=== PATIENT | female | born 1935 | race Caucasian/White ===

== ENCOUNTER 2016-09-14 17:53 | Emergency (ER) | payer MEDICARE, OTHER ==
[2016-09-14] MEDS ORDERED: PROTONIX 40 MG IV IV ONE ×2 (18:34→18:44)
[2016-09-14] MEDS ORDERED: Zofran 4 MG/2 ML VIAL IV ONE (18:34)
[2016-09-14] MEDS ORDERED: MORPHINE SULFATE 4 MG INJ IV ONE (18:34)
--- NOTE | 2016-09-14 18:37 | ERPHSYRPT ---
- History of Present Illness Historian: patient Exam Limitations: clinical condition Patient Subjective Stated Complaint: vomiting and generalized abd pain started this am. states has vomited approx 20 times. denies diarrhea Triage Nursing Assessment: ambulated to room per self holding abd. skin w/d, color pale. resp nonlabored. abd soft, tender. normal bowel sounds. Timing/Duration: today Activities at Onset: none Quality: cramping Abdominal Pain Onset Location: generalized abdomen Pain Radiation: no radiation Severity of Pain-Max: moderate Severity of Pain-Current: moderate Associated Symptoms: nausea, vomiting Previous symptoms: no prior history Hx Tetanus, Diphtheria Vaccination/Date Given: No Hx Influenza Vaccination/Date Given: Yes Hx Pneumococcal Vaccination/Date Given: Yes <HAILEE TERRAZAS - Last Filed: 09/14/16 19:39> <RUBINA CANELA - Last Filed: 09/14/16 21:39> - History of Present Illness Time Seen by Provider: 09/14/16 18:20 Physician History: PATIENT COMPLAINS OF ACUTE ONSET OF FREQUENT EMESIS X 20 EPISODES SINCE 8AM TODAY ASSOCIATED GENERALIZED ABDOMINAL PAIN. DENIES FEVER, CHILLS OR URINARY SYMPTOMS. HAS TRANSIET EPISODE OF CHEST PAIN THIS AM. DENIES DIAPHORESIS, DYSPNEA OR PALPITATIONS (HAILEE TERRAZAS) Allergies/Adverse Reactions: penicillin G Allergy (Verified 09/14/16 18:12) acetaminophen [From [place]] Adverse Reaction (Verified 09/14/16 18:12) hydrocodone bitartrate [From [place]] Adverse Reaction (Verified 09/14/16 18:12) lisinopril Adverse Reaction (Verified 09/14/16 18:12) procainamide HCl [From [place]] Adverse Reaction (Verified 09/14/16 18:12) PRESANTINE Allergy (Uncoded 09/14/16 18:12) Home Medications: Aspirin 325 mg PO DAILY 04/04/13 [History] Fenofibrate Nanocrystallized [Tricor] 160 mg PO DAILY 04/04/13 [History] Glipizide 2.5 mg [Glucotrol Xl 2.5 MG] 2.5 mg PO DAILY 04/04/13 [History] Isosorbide Mononitrate 30 mg [Imdur 30 MG] 60 mg PO DAILY 04/04/13 [History ] Levothyroxine Sodium 112 Mcg [Synthroid 112 Mcg] 112 mg PO DAILY 04/04/13 [ History] Losartan Potassium 50 mg [Cozaar 50 MG] 100 mg PO DAILY 04/04/13 [History] Metformin HCl 1000 mg [Glucophage 1000 MG] 1,000 mg PO DAILY 04/04/13 [History] Metoprolol Tartrate 100 mg PO BID 04/04/13 [History] Omeprazole 20 MG [Prilosec 20 mg] 20 mg PO DAILY 04/04/13 [History] Vit D3/Folic Acid/B2/B6/B12 [Folgard Tablet] 1 each PO DAILY 04/04/13 [History] Amino Acids/Mv,Fe,Other Min [Ocuvite Extra Tablet] 1 each PO DAILY 09/14/16 [ History] Amlodipine Besylate [Norvasc] 2.5 mg PO DAILY 09/14/16 [History] - Review of Systems Constitutional: No Fever, No Chills Eyes: No Symptoms Ears, Nose, & Throat: No Symptoms Respiratory: No Cough, No Dyspnea Cardiac: Chest Pain, No Edema, No Syncope Abdominal/Gastrointestinal: Abdominal Pain, Nausea, Vomiting, No Diarrhea Genitourinary Symptoms: No Symptoms, No Dysuria Musculoskeletal: No Symptoms, No Back Pain, No Neck Pain Skin: No Symptoms, No Rash Neurological: No Dizziness, No Focal Weakness, No Sensory Changes Psychological: No Symptoms Endocrine: No Symptoms All Other Systems: Reviewed and Negative <HAILEE TERRAZAS - Last Filed: 09/14/16 19:39> - Past Medical History Pertinent Past Medical History: Yes Neurological History: TIA ENT History: No Pertinent History Cardiac History: Arrhythmia, Hypertension Respiratory History: No Pertinent History Endocrine Medical History: Diabetes Type II, Hypothyroidism Musculoskeletal History: Fractures GI Medical History: GERD Other Medical History: PT. HAD CAROTID ENDARTECTOMY, BILATERAL TKA, BREAST BIOPSIES W/ NO CA - Past Surgical History Past Surgical History: Yes Neuro Surgical History: No Pertinent History Cardiac: No Pertinent History Respiratory: No Pertinent History Gastrointestinal: No Pertinent History Genitourinary: No Pertinent History Musculoskeletal: Joint Replacement Female Surgical History: Other Other Surgical History: bilat knee replacement. 3x D&C. 3x breast biopsies - Social History Smoking Status: Never smoker Exposure to second hand smoke: No Drug Use: none Patient Lives Alone: No - Female History Hx Now: No <HAILEE TERRAZAS - Last Filed: 09/14/16 19:39> - Physical Exam General Appearance: no apparent distress, alert Eye Exam: PERRL/EOMI, eyes nml inspection Ears, Nose, Throat Exam: normal ENT inspection, pharynx normal, moist mucous membranes Neck Exam: normal inspection, non-tender, supple, full range of motion Respiratory Exam: normal breath sounds, lungs clear, No respiratory distress Cardiovascular Exam: regular rate/rhythm, normal heart sounds Gastrointestinal/Abdomen Exam: soft, normal bowel sounds, tenderness ( PERIUMBILICAL AND RLQ, LLQ TENDERNESS, NO GUARDING OR REBOUNS TENDERNESS), No mass Back Exam: normal inspection, normal range of motion, No CVA tenderness, No vertebral tenderness Extremity Exam: normal inspection, normal range of motion, pelvis stable Neurologic Exam: alert, oriented x 3, cooperative, normal mood/affect, nml cerebellar function, sensation nml, No motor deficits Skin Exam: normal color, warm, dry SpO2 Interpretation: normal SpO2: 97 Oxygen Delivery: Room Air <MKHAILEE - Last Filed: 09/14/16 19:39> - Course EKG Interpreted by Me: RATE, Sinus Rhythm, NORMAL AXIS <MKHAILEE Last Filed: 09/14/16 19:39> <HAILEE TERRAZAS Filed: 09/14/16 19:39> - Progress Discussed with : Other (SPOKE WITH DR PALENCIA(ADVERTISING WRITER) AND MIGUEL ESTRADA NPatricia.(FOR DR SANTACRUZ)([id number]) WHO ACCEPTED PT FOR TRANSFER TO [facility] A DIRECT ADMISSION.) <RUBINA CANELA - Last Filed: 09/14/16 21:39> - Progress Progress Note: 09/14/16 19:42 PATIENT GIVEN NORMAL SALINE IV FLUIDS AT 200MG/HR, ZOFRAN 4MG, PROTONIX 40MG. MORPHINE 4MG IV PATIENT CARE ENDORSED TO DR CANELA AT 1940 (HAILEE TERRAZAS) 09/14/16 21:[address] CANELA AT ~ 2100: PERRL; PHARYNX PINK, LUNGS CLEAR, NO CARDIAC RUB, ABDOMINAL B.S. MILDLY HYPERACTIVE, MILD DIFFUSE ABDOMINAL TENDERNESS, NO TREMORS. (RUBINA CANELA) <HAILEE TERRAZAS - Last Filed: 09/14/16 19:39> - Departure Time of Disposition: 21:39 Departure Disposition: Transfer ([facility]) Critical Care Time: No <RUBINA CANELA - Last Filed: 09/14/16 21:39> - Departure Clinical Impression: ACUTE PANCREATITIS, HTN, DM, HYPOTHYROIDISM, GERD Condition: Stable Referrals: GAYLA GRAHAM [Primary Care Provider] -
[2016-09-14 18:42] LABS: BASOPHIL % 0.1 % (0.0-0.4); Eosinophil % 0.1 % (0.00-5.0); Granulocytes % 82.2 % (36.0-66.0); Lymphocytes % 12.7 % (24.0-44.0); Mean Cell Volume 96.6 fl (78-100); Monocytes % 4.9 % (0.0-12.0); Platelet Count 323 K/mm3 (150-450); Red Blood Count 4.07 M/mm3 (4.1-5.4); Red Cell Distribution Width 14.4 % (11.5-14.0); White Blood Count 13.4 K/mm3 (4.0-10.5)
[2016-09-14] MEDS ORDERED: Zofran 4 MG/2 ML VIAL ONE (18:44)
[2016-09-14] MEDS ORDERED: MORPHINE SULFATE 4 MG INJ ONE (18:45)
[2016-09-14] MEDS ORDERED: Sodium Chloride 0.9% 1000 ML 1,000 ML ONE (18:45)
[2016-09-14] MEDS ORDERED: Sodium Chloride 0.9% 1000 ML 1,000 ML IV SCH (18:45)
[2016-09-14 18:47] LABS: Mean Corpuscular Hemoglobin 32.1 pg (26-32)
[2016-09-14 18:59] LABS: ALBUMIN 3.4 g/dL (3.4-5.0); ALKALINE PHOSPHATASE 72 U/L (46-116); ANION GAP 13.9 MEQ/L (5-15); BLOOD UREA NITROGEN 24 mg/dL (9-20); CHLORIDE 105 mEq/L (98-107); Carbon Dioxide 26.8 mEq/L (21-32); Glucose 220 MG/DL (70-110); SGOT/AST 174 U/L (15-37); SGPT/ALT 79 U/L (12-78); SODIUM 142 mEq/L (136-145); Total Protein 7.1 gm/dL (6.4-8.2)
[2016-09-14 19:18] LABS: TROPONIN < 0.017 ng/ml (0.000-0.056)
[2016-09-14 20:08] LABS: LIPASE 33046 U/L (73-393)
[2016-09-14 20:10] LABS: Collection Type CLEAN CATCH
[2016-09-14 20:11] LABS: ADD URINE CULTURE? NO (NO); Bilirubin MODERATE (NEGATIVE); Blood NEGATIVE Ery/ul (0-5); COMPLETE URINE MICROSCOPIC? YES; Epithelial Cells FEW /HPF (FEW); Glucose NEGATIVE (NEGATIVE); Leukocyte Esterase NEGATIVE (NEGATIVE); Mucus SLIGHT /HPF (NEGATIVE)
[2016-09-14] MEDS ORDERED: Hydromorphone 1 mg/ml Ampule IV ONE (21:42)
[2016-09-14] MEDS ORDERED: Phenergan 25 MG INJ IV ONE (21:42)
[2016-09-14] MEDS ORDERED: Hydromorphone 1 mg/ml Ampule ONE (21:51)
[2016-09-14] MEDS ORDERED: Phenergan 25 MG INJ ONE (21:51)
[2016-09-14 22:04] VITALS: BP 120/64; PULSE 87; O2SAT 94
--- NOTE | 2016-09-15 09:07 | XRAY ---
Indication: Mid abdominal pain, constipation, and emesis. Multiple contiguous axial images obtained through the abdomen and pelvis without contrast as ordered. Comparison: None Lung bases demonstrates mild bibasilar dependent atelectasis and inferior lingular fibrosis/scarring. Heart is not enlarged. Small hiatal hernia. Noncontrasted stomach and bowel loops appear nonobstructed. There is mild diffuse scattered colonic fecal debris throughout. Normal appendix. Head of the pancreas appears prominent with peripancreatic stranding concerning for pancreatitis. Adjacent descending duodenum mildly fluid distended with stranding possibly reactive/duodenitis. Tiny free fluid adjacently and lateral to the inferior liver. No walled off fluid collection or free air. Common bile duct is prominent up to 10 mm without choledochal calculus. Nonobstructing bilateral renal calculus, largest in the right lower calyx measuring 8 mm. A few calcified uterine fibroids. Remaining liver, gallbladder, spleen, adrenal glands, kidneys, ureters, and bladder appear unremarkable for noncontrast exam. Moderate aortoiliac calcifications without AAA. Osseous structures intact with moderate degenerative changes throughout the spine including 4-5 mm anterolisthesis of L4 on L5 on S1. Impression: 1. CT features favoring pancreatitis. Tiny free fluid but no walled off fluid collection. Adjacent descending duodenal stranding possibly reactive/duodenitis. 2. Common bile duct prominence without choledochal calculus. 3. Incidental small hiatal hernia, fecal stasis without obstruction, nonobstructing bilateral renal calculi, and calcified uterine fibroids. 4. Multilevel spinal degenerative spondylosis including grade 1 L4-L5-S1 spondylolisthesis. Comment: Preliminary interpretation was made by [facility]. No critical discrepancy. CT DI 22.67
== END 2016-09-14 22:32 | disposition short-term general hospital (02) ==
LOC: ED 17:53
DX: K85.90 Acute pancreatitis without necrosis or infection, unspecified (principal); I10 Essential (primary) hypertension; E11.9 Type 2 diabetes mellitus without complications; E03.9 Hypothyroidism, unspecified; K21.9 Gastro-esophageal reflux disease without esophagitis; R10.84 Generalized abdominal pain; R11.2 Nausea with vomiting, unspecified; Z79.899 Other long term (current) drug therapy; Z79.84 Long term (current) use of oral hypoglycemic drugs
CPT/HCPCS: 36000; 36415; 74176; 80053; 81000; 82150; 83690; 84484; 85025; 87040; 93005; 96360; 96361; 96374; 96375; 99285; J1170; J2270; J2405; J2550

== ENCOUNTER 2019-01-30 07:39 | Day surgery (SDC) | payer MEDICARE, OTHER ==
[2019-01-30] MEDS ORDERED: Xylocaine-Mpf 2% 5 Ml Vial IJ ONE (07:40)
[2019-01-30] MEDS ORDERED: Depo-Medrol 40 MG/ML IM ONE (07:40)
[2019-01-30] MEDS ORDERED: DIPRIVAN 200 MG/20 ML IV ONE (09:32)
[2019-01-30] MEDS ORDERED: Ketamine HCl 50 MG/ML ONE (09:32)
--- NOTE | 2019-01-30 12:43 | XRAY ---
Indication: Bilateral L3-S1 MBB. Intraoperative fluoroscopy was provided for 9 seconds. Single digital spot image submitted for interpretation demonstrates posterior needle tips projecting over the expected course of the left and right L3-S1 nerve roots. Correlate with intraoperative findings/report.
--- NOTE | 2019-01-30 12:51 | XRAY ---
9 seconds fluoroscopy time in surgery for bilateral L3-S1 MBB.
[2019-01-30] MEDS ORDERED: Lactated Ringers 1,000 ML IV ONE (18:20)
== END 2019-01-30 10:11 | disposition home or self-care (01) ==
LOC: SDC-PAIN 07:39
PROVIDERS: ATTEND Psychiatry & Neurology Pain Medicine
DX: M47.816 Spondylosis without myelopathy or radiculopathy, lumbar region (principal); E11.9 Type 2 diabetes mellitus without complications; I10 Essential (primary) hypertension; E78.5 Hyperlipidemia, unspecified; K21.9 Gastro-esophageal reflux disease without esophagitis; E03.9 Hypothyroidism, unspecified; Z79.899 Other long term (current) drug therapy
CPT/HCPCS: 64493; 64494; 64495; 72020; 77002; 82962; J1030; J2704

== ENCOUNTER 2019-03-06 07:58 | Day surgery (SDC) | payer MEDICARE, OTHER ==
[2019-03-06] MEDS ORDERED: Marcaine 0.5% SDV 10 ML IJ ONE (07:59)
[2019-03-06] MEDS ORDERED: Depo-Medrol 40 MG/ML IM ONE (07:59)
[2019-03-06] MEDS ORDERED: DIPRIVAN 200 MG/20 ML IV ONE (09:30)
[2019-03-06] MEDS ORDERED: Ketamine HCl 50 MG/ML ONE (09:30)
--- NOTE | 2019-03-06 11:04 | XRAY ---
Indication: Bilateral L3-S1 MBB. Intraoperative fluoroscopy was provided for 10 seconds. Single digital spot image submitted for interpretation demonstrates posterior needle tips projecting over the expected course of the left and right L3-S1 nerve roots. Correlate with intraoperative findings/report.
--- NOTE | 2019-03-06 11:16 | XRAY ---
10 seconds fluoroscopy time in surgery for bilateral L3-S1 MBB.
[2019-03-06] MEDS ORDERED: Lactated Ringers 1,000 ML IV ONE (16:00)
== END 2019-03-06 09:50 | disposition home or self-care (01) ==
LOC: SDC-PAIN 07:58
PROVIDERS: ATTEND Psychiatry & Neurology Pain Medicine
DX: M47.816 Spondylosis without myelopathy or radiculopathy, lumbar region (principal); E11.9 Type 2 diabetes mellitus without complications; I10 Essential (primary) hypertension; E78.5 Hyperlipidemia, unspecified; E03.9 Hypothyroidism, unspecified; K21.9 Gastro-esophageal reflux disease without esophagitis; Z79.899 Other long term (current) drug therapy
CPT/HCPCS: 64493; 64494; 64495; 72020; 77002; 82962; J1030; J2704

== ENCOUNTER 2020-07-26 15:14 | Observation (INO) | payer MEDICARE, OTHER ==
[2020-07-26] MEDS ORDERED: Sodium Chloride 0.9% 1000 ML 1,000 ML ONE (15:43)
[2020-07-26] MEDS ORDERED: Sodium Chloride 0.9% 1000 ML 1,000 ML IV SCH (15:45)
--- NOTE | 2020-07-26 15:47 | ERPHSYRPT ---
- History of Present Illness Time Seen by Provider: 07/26/20 15:39 Source: patient, family Exam Limitations: no limitations Patient Subjective Stated Complaint: Syncope Triage Nursing Assessment: Patient brought back to ED via w/c and transferred to bed with assist of 1. Patient A+O x3. Patient's skin pink, warm and dry. Patient complains of a syncopal episode around 1400 after eating a doughnut she felt like she was choking then came to on the floor where there were chairs on the floor she had knocked over. Patient has small hematoma to right back side of head. Patient denies pain or discomfort. Patient states she was nauseated and dizzy after episode. Physician History: 84 years old female with history of PE on Eliquis, hypertension, hyperlipidemia, diabetes mellitus presented in the ER with chief complaint of syncopal episode around 2 PM today. Patient reports she had a piece of donut with choking feeli ng in her throat and next thing she knows she woke up on the floor. She did hit her head on the way down and was on the right side hip. Unknown length of loss of consciousness. She was not confused or altered at all on waking up and called her daughter and patient is brought in here. She denies any numbness tingling or focal weakness. No hip pain. No chest pain palpitations or shortness of breath before or after the fall. Denies any blurry vision, difficulty speech. She does have a hematoma on the occipitoparietal area on the right with some discomfort. Denies any neck pain.. No ENT bleed reported. Timing/Duration: hour(s) (2), sudden, improved Severity: moderate Deficits: no difficulties Baseline/Normal Cognition: alert oriented x 3 Current Cognition: alert oriented x 3 Baseline Gait: walks w/o assistance Associated Symptoms: denies symptoms Allergies/Adverse Reactions: penicillin G Allergy (Verified 07/26/20 15:24) acetaminophen [From [place]] Adverse Reaction (Verified 07/26/20 15:24) hydrocodone bitartrate [From [place]] Adverse Reaction (Verified 07/26/20 15:24) lisinopril Adverse Reaction (Verified 07/26/20 15:24) procainamide HCl [From Pronestyl] Adverse Reaction (Verified 07/26/20 15:24) PRESANTINE Allergy (Uncoded 07/26/20 15:24) Home Medications: Aspirin 81 mg PO DAILY 04/04/13 [History] Fenofibrate Nanocrystallized [Tricor] 160 mg PO DAILY 04/04/13 [History] Glipizide 2.5 mg [Glucotrol Xl 2.5 MG] 2.5 mg PO DAILY 04/04/13 [History] Isosorbide Mononitrate 30 mg [Imdur 30 MG] 60 mg PO DAILY 04/04/13 [Histo ry] Levothyroxine Sodium 112 Mcg [Synthroid 112 Mcg] 88 mg PO DAILY 04/04/13 [History] Metoprolol Tartrate 25 mg PO BID 04/04/13 [History] Omeprazole 20 MG [Prilosec 20 mg] 20 mg PO DAILY 04/04/13 [History] Amino Acids/Mv,Fe,Other Min [Ocuvite Extra Tablet] 1 each PO DAILY 09/14/16 [History] Apixaban [Eliquis] 1 tab PO BID 07/26/20 [History] Atorvastatin Calcium [Lipitor 40Mg] 1 tab PO HS 07/26/20 [History] Olmesartan Medoxomil [Benicar] 1 tab PO DAILY 07/26/20 [History] PARoxetine HCl [Paxil] 1 tab PO DAILY 07/26/20 [History] Hx Tetanus, Diphtheria Vaccination/Date Given: No Hx Influenza Vaccination/Date Given: Yes Hx Pneumococcal Vaccination/Date Given: Yes Immunizations Up to Date: Yes Travel Risk - International Travel Have you traveled outside of the country in past 3 weeks: No - Coronavirus Screening Are you exhibiting any of the following symptoms?: No Close contact with a COVID-19 positive Pt in past 14-21 Days: No - Vaccine Status Have you recieved a Covid-19 vaccination: Yes 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 - Vaccination Dates Date of 2cond Vaccination (if applicable): 05/30/2020 - Review of Systems Constitutional: No Symptoms Eyes: No Symptoms Ears, Nose, & Throat: No Symptoms Respiratory: No Symptoms Cardiac: No Symptoms Abdominal/Gastrointestinal: No Symptoms Genitourinary Symptoms: No Symptoms Musculoskeletal: No Symptoms Neurological: Headache Psychological: No Symptoms Endocrine: No Symptoms Hematologic/Lymphatic: No Symptoms Immunological/Allergic: No Symptoms - Past Medical History Pertinent Past Medical History: Yes Neurological History: TIA ENT History: No Pertinent History Cardiac History: High Cholesterol, Hypertension Respiratory History: No Pertinent History Endocrine Medical History: Diabetes Type II, Hypothyroidism Musculoskeletal History: Osteoarthritis GI Medical History: GERD Other Medical History: B TKA, L ankle fracture with hardware. 2-3 fainting spells, the last was 3 years ago. Nausea, SOB - Past Surgical History Past Surgical History: Yes Neuro Surgical History: No Pertinent History Cardiac: No Pertinent History Respiratory: No Pertinent History Gastrointestinal: No Pertinent History Genitourinary: No Pertinent History Musculoskeletal: Joint Replacement Female Surgical History: Other Other Surgical History: bilat knee replacement. 3x D&C. 3x breast biopsies - Social History Smoking Status: Never smoker Exposure to second hand smoke: No Drug Use: none Patient Lives Alone: Yes - Female History Hx Now: No - Nursing Vital Signs Nursing Vital Signs: Initial Vital Signs Temperature 98.1 F 07/26/20 15:24 Pulse Rate 82 07/26/20 15:24 Respiratory Rate 18 07/26/20 15:24 Blood Pressure 168/86 07/26/20 15:24 O2 Sat by Pulse Oximetry 95 07/26/20 15:24 Pain Scale Pain Intensity 0 - [place] Coma Scale Best Eye Response (Dax): (4) open spontaneously Best Verbal Response (Dax): (5) oriented Best Motor Response (Dax): (6) obeys commands Dax Total: 15 - Physical Exam General Appearance: no apparent distress, alert, anxiety Eye Exam: bilateral eye: normal inspection, PERRL, EOMI Ears, Nose, Throat Exam: normal ENT inspection, TMs normal, pharynx normal, other (5.5 cm hematoma right occipitoparietal area. No step in deformity. No tenderness in the midline neck. 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 Exam: normal hearing, normal speech, PERRL Coordination/Gait: normal finger to nose, normal cerebellar function, negative Romberg's sign Motor/Sensory: no motor deficit, no sensory deficit, no pronator drift, negative Babinski's sign DTR: bicep (R): 2+, bicep (L): 2+, knee (R): 2+, knee (L): 2+ Skin Exam: normal color SpO2 Interpretation: normal SpO2: 95 O2 Delivery: Room Air - Course EKG Interpreted by Me: RATE (79), Sinus Rhythm, NORMAL AXIS, NORMAL INTERVALS, NORMAL QRS Ordered Tests: Active Orders 24 hr Category Date Time Status Diesel Engine Mechanic STAT Care 07/26/20 15:40 Active EKG-ER Only STAT Care 07/26/20 15:39 Active IV Insertion STAT Care 07/26/20 15:39 Active Orthostatic Vital Signs STAT Care 07/26/20 15:39 Active POCT Glucose Check STAT Care 07/26/20 15:39 Active CERVICAL SPINE WO CONTRAST [CT] Stat Exams 07/26/20 15:40 Taken CHEST 1 VIEW (PORTABLE) Stat Exams 07/26/20 15:40 Taken HEAD WITHOUT CONTRAST [CT] Stat Exams 07/26/20 15:40 Taken CBC W DIFF Stat Lab 07/26/20 15:35 Completed CK-Creatinine Phosphokinase Stat Lab 07/26/20 15:35 Completed CMP Routine Lab 07/26/20 15:35 Completed CULTURE,URINE Stat Lab 07/26/20 15:43 Received POCT GLUCOSE Stat Lab 07/26/20 15:40 Completed POCT GLUCOSE Stat Lab 07/26/20 15:40 Received TROPONIN Q3H Lab 07/26/20 15:35 Completed TROPONIN Q3H Lab 07/26/20 18:45 Ordered TROPONIN Q3H Lab 07/26/20 21:45 Ordered TROPONIN Q3H Lab 07/27/20 00:45 Ordered TROPONIN Q3H Lab 07/27/20 03:45 Ordered UA W/RFX UR CULTURE Stat Lab 07/26/20 15:43 Completed Medication Summary Generic Name Dose Route Start Last Admin Trade Name Freq PRN Reason Stop Dose Admin Sodium Chloride 1,000 mls @ 100 mls/hr 07/26/20 15:45 07/26/20 15:44 Sodium Chloride 0.9% 1000 Ml IV 08/25/20 15:44 100 mls/hr .Q10H DORY Administration Levofloxacin/Dextrose 500 mg in 100 mls @ 100 mls/hr 07/26/20 17:20 Levofloxacin 500mg/100ml D5w IV 07/26/20 18:19 STAT STA Lab/Rad Data: Laboratory Result Diagrams 07/26/20 15:35 07/26/20 15:35 Laboratory Results 07/26/20 07/26/20 07/26/20 Range/Units 15:43 15:40 15:35 WBC (4.0-10.5) K/mm3 RBC (4.1-5.4) M/mm3 Hgb (12.0-16.0) gm/dl Hct (35-47) % MCV (78-100) fl MCH (26-32) pg MCHC (32-36) g/dl RDW (11.5-14.0) % Plt Count (150-450) K/mm3 MPV (7.5-11.0) fl Gran % (36.0-66.0) % Eos # (Auto) (0-0.5) Absolute Lymphs (auto) (1.0-4.6) Absolute Monos (auto) (0.0-1.3) Lymphocytes % (24.0-44.0) % Monocytes % (0.0-12.0) % Eosinophils % (0.00-5.0) % Basophils % (0.0-0.4) % Absolute Granulocytes (1.4-6.9) Basophils # (0-0.4) Sodium 138 (137-145) mmol/L Potassium 4.2 (3.5-5.1) mmol/L Chloride 103 (98-107) mmol/L Carbon Dioxide 26 (22-30) mmol/L Anion Gap 13.4 (5-15) MEQ/L BUN 24 H (7-17) mg/dL Creatinine 0.98 (0.52-1.04) mg/dL Estimated GFR 57.7 ML/MIN Glucose 164 H (74-106) mg/dL POC Glucometer 159 H (74 to 106) mg/dL Calcium 9.9 (8.4-10.2) mg/dL Total Bilirubin 0.60 (0.2-1.3) mg/dL AST 38 H (14-36) U/L ALT 17 (0-35) U/L Alkaline Phosphatase 96 (38-126) U/L Creatine Kinase (30-135) U/L Troponin I < 0.012 (0.000-0.034) ng/mL Serum Total Protein 5.9 L (6.3-8.2) g/dL Albumin 3.2 L (3.5-5.0) g/dL Urine Color TWYLA (YELLOW) Urine Appearance SLIGHTLY CLOUDY (CLEAR) Urine pH 5.0 (5-6) Ur Specific [place] 1.025 (1.005-1.025) Urine Protein 30 (Negative) Urine Ketones NEGATIVE (NEGATIVE) Urine Blood SMALL (0-5) Huan/ul Urine Nitrite NEGATIVE (NEGATIVE) Urine Bilirubin NEGATIVE (NEGATIVE) Urine Urobilinogen 4 (0-1) mg/dL Ur Leukocyte Esterase LARGE (NEGATIVE) Urine WBC (Auto) 26-50 (0-5) /HPF Urine RBC (Auto) 51-100 (0-2) /HPF U Hyaline Cast (Auto) 3-5 (0-2) /LPF U Epithel Cells (Auto) RARE (FEW) /HPF Urine Bacteria (Auto) NONE (NEGATIVE) /HPF Urine Mucus (Auto) SLIGHT (NEGATIVE) /HPF Urine Culture Reflexed YES (NO) Urine Glucose NEGATIVE (NEGATIVE) mg/dL 07/26/20 07/26/20 Range/Units 15:35 15:35 WBC 7.8 (4.0-10.5) K/mm3 RBC 3.68 L (4.1-5.4) M/mm3 Hgb 12.2 (12.0-16.0) gm/dl Hct 37.1 (35-47) % MCV 100.8 H (78-100) fl MCH 33.2 H (26-32) pg MCHC 32.9 (32-36) g/dl RDW 16.0 H (11.5-14.0) % Plt Count 321 (150-450) K/mm3 MPV 10.9 (7.5-11.0) fl Gran % 47.2 (36.0-66.0) % Eos # (Auto) 0.46 (0-0.5) Absolute Lymphs (auto) 2.83 (1.0-4.6) Absolute Monos (auto) 0.77 (0.0-1.3) Lymphocytes % 36.4 (24.0-44.0) % Monocytes % 9.9 (0.0-12.0) % Eosinophils % 5.9 H (0.00-5.0) % Basophils % 0.6 (0.0-0.4) % Absolute Granulocytes 3.67 (1.4-6.9) Basophils # 0.05 (0-0.4) Sodium (137-145) mmol/L Potassium (3.5-5.1) mmol/L Chloride (98-107) mmol/L Carbon Dioxide (22-30) mmol/L Anion Gap (5-15) MEQ/L BUN (7-17) mg/dL Creatinine (0.52-1.04) mg/dL Estimated GFR ML/MIN Glucose (74-106) mg/dL POC Glucometer (74 to 106) mg/dL Calcium (8.4-10.2) mg/dL Total Bilirubin (0.2-1.3) mg/dL AST (14-36) U/L ALT (0-35) U/L Alkaline Phosphatase (38-126) U/L Creatine Kinase 35 (30-135) U/L Troponin I (0.000-0.034) ng/mL Serum Total Protein (6.3-8.2) g/dL Albumin (3.5-5.0) g/dL Urine Color (YELLOW) Urine Appearance (CLEAR) Urine pH (5-6) Ur Specific [place] (1.005-1.025) Urine Protein (Negative) Urine Ketones (NEGATIVE) Urine Blood (0-5) Huan/ul Urine Nitrite (NEGATIVE) Urine Bilirubin (NEGATIVE) Urine Urobilinogen (0-1) mg/dL Ur Leukocyte Esterase (NEGATIVE) Urine WBC (Auto) (0-5) /HPF Urine RBC (Auto) (0-2) /HPF U Hyaline Cast (Auto) (0-2) /LPF U Epithel Cells (Auto) (FEW) /HPF Urine Bacteria (Auto) (NEGATIVE) /HPF Urine Mucus (Auto) (NEGATIVE) /HPF Urine Culture Reflexed (NO) Urine Glucose (NEGATIVE) mg/dL - Progress Progress: improved, pain not gone completely, re-examined Progress Note: 07/26/20 17:29 84 years old is evaluated for syncopal episode with scalp hematoma. She has a nonfocal neuro exam throughout stay in the ER. EKG showed normal sinus rhythm with no acute ST elevations. Normal white count, no acutely abnormal chemistries. Negative troponins. Chest x-ray no acute cardiopulmonary fi ndings. She does have UTI and started on Levaquin. CT head negative for skull fracture, intracranial bleed, midline shift or mass-effect. I have obtained CT cervical spine as well which is negative for any acute trauma related findings. Her syncope could be secondary to choking episode but does not have any difficulty breathing or swallowing at of present or it could be due to cardio neuro causes. Needs further work-up. Discussed with Dr. Nava and patient is admitted for observation. Discussed with : Coretta Will see patient in: hospital (observation) Counseled pt/family regarding: lab results, diagnosis, need for follow-up, rad results - Departure Departure Disposition: Observation Clinical Impression: Syncope and collapse, Acute UTI Scalp contusion Qualifiers: Encounter type: initial encounter Qualified Code(s): S00.03XA - Contusion of scalp, initial encounter Condition: Stable Critical Care Time: No Referrals: SIMA REN MD [Primary Care Provider] -
[2020-07-26 15:56] LABS: Absolute Neutrophil Ct (ANC) 3.67 (1.4-6.9); BASOPHIL % 0.6 % (0.0-0.4); Basophil (Absolute #) 0.05 (0-0.4); Eosinophil % 5.9 % (0.00-5.0); Eosinophil (Absolute #) 0.46 (0-0.5); Hematocrit 37.1 % (35-47); Hemoglobin 12.2 gm/dl (12.0-16.0); Lymphocyte (Absolute #) 2.83 (1.0-4.6); Lymphocytes % 36.4 % (24.0-44.0); Mean Cell Volume 100.8 fl (78-100); Mean Corpuscular Hemoglobin 33.2 pg (26-32); Mean Corpuscular Hgb Concent. 32.9 g/dl (32-36); Mean Platelet Volume 10.9 fl (7.5-11.0); Monocyte (Absolute #) 0.77 (0.0-1.3); Monocytes % 9.9 % (0.0-12.0); Neutrophil % 47.2 % (36.0-66.0); Platelet Count 321 K/mm3 (150-450); Red Blood Count 3.68 M/mm3 (4.1-5.4); White Blood Count 7.8 K/mm3 (4.0-10.5)
[2020-07-26 16:04] LABS: Appearance SLIGHTLY CLOUDY (CLEAR); Bilirubin NEGATIVE (NEGATIVE); Blood SMALL Ery/ul (0-5); Epithelial Cells RARE /HPF (FEW); Glucose NEGATIVE (NEGATIVE); Ketones NEGATIVE (NEGATIVE); Leukocyte Esterase LARGE (NEGATIVE); Mucus SLIGHT /HPF (NEGATIVE); Nitrite NEGATIVE (NEGATIVE); Protein,Urine Dip 30 (Negative); RBC 51-100 /HPF (0-2); Specific Gravity 1.025 (1.005-1.025); Urobilinogen 4 mg/dL (0-1); WBC 26-50 /HPF (0-5)
[2020-07-26 16:37] LABS: ALBUMIN 3.2 g/dL (3.5-5.0); ALKALINE PHOSPHATASE 96 U/L (38-126); ANION GAP 13.4 MEQ/L (5-15); BLOOD UREA NITROGEN 24 mg/dL (7-17); CHLORIDE 103 mmol/L (98-107); Calcium 9.9 mg/dL (8.4-10.2); Carbon Dioxide 26 mmol/L (22-30); Creatinine 1 0.98 mg/dL (0.52-1.04); EST GLOMERULAR FILTRATION RATE 57.7 ML/MIN; Glucose 164 mg/dL (74-106); Potassium 4.2 mmol/L (3.5-5.1); SGOT/AST 38 U/L (14-36); SGPT/ALT 17 U/L (0-35); SODIUM 138 mmol/L (137-145); TROPONIN < 0.012 ng/mL (0.000-0.034); Total Protein 5.9 g/dL (6.3-8.2)
[2020-07-26] MEDS ORDERED: Levofloxacin 500MG/100ML D5W 500 MG/100 ML BAG IV STA (17:20)
[2020-07-26] MEDS ORDERED: Levofloxacin 500MG/100ML D5W 500 MG/100 ML BAG IV ONE (17:30)
--- NOTE | 2020-07-26 18:23 | XRAY ---
Indication: Syncope. Status post fall. Posterior right head injury. Blood thinner therapy. Multiple contiguous axial images obtained through the head without contrast. Comparison: None Age-appropriate global atrophy and mild periventricular degenerative micro-ischemia bilaterally. Tiny right basal ganglia remote lacunar infarcts. No acute intracranial hemorrhage, abnormal extra-axial fluid collection, or mass effect. Fourth ventricle is midline without hydrocephalus. Small right posterior parietal scalp hematoma. Bony calvarium intact. Visualized paranasal sinuses and mastoid air cells are clear. Impression: 1. Right parietal scalp hematoma. No underlying fracture or acute intracranial abnormalities. 2. Atrophy and degenerative micro-ischemia within normal limits for patient's age. 3. Tiny right basal ganglia remote lacunar infarcts. Comment: Preliminary interpretation was made by [facility]. No critical discrepancy.
--- NOTE | 2020-07-26 18:24 | XRAY ---
Indication: Syncope. Status post fall. Comparison: April 24, 2020. Portable chest unchanged again demonstrating subtle patchy left base interstitial alveolar opacity and minimal right costophrenic angle fibrosis/scarring. Remaining heart and lungs unremarkable. Bony thorax intact again with osteopenia, degenerative changes, and scoliosis. Comment: Preliminary interpretation was made by [facility]. No critical discrepancy.
--- NOTE | 2020-07-26 18:27 | XRAY ---
Indication: Syncope. Status post fall. Posterior right head injury. Blood thinner therapy. Multiple contiguous axial images obtained through the cervical spine. Sagittal and coronal reformatted images obtained. Comparison: None Age-related osteopenia. Axial images negative for acute fracture, suspicious bone lesions, or spinal canal stenosis. There is mild/moderate C3-C7 degenerative endplate spurring, moderate atlantoaxial degenerative arthropathy, and moderate multilevel bilateral degenerative facet hypertrophy. Sagittal and coronal reformatted images demonstrates lordotic reversal, positional versus paraspinal spasm. 1-2 mm anterolisthesis of C2 on C3, C4 on C5, and C7 on T1. C5-C7 degenerative disc space loss. No acute compression fracture or jumped facet. Normal appearing craniocervical junction. Visualized noncontrasted soft tissues demonstrates moderate scattered vascular calcifications bilaterally. Lung apices are clear. Impression: 1. Cervical lordotic reversal, positional versus paraspinal spasm. 2. Negative acute fracture. 3. Chronic findings including osteopenia, multilevel degenerative spondylosis, and multilevel minimal spondylolisthesis. Comment: Preliminary interpretation was made by [facility]. No critical discrepancy.
[2020-07-26 18:59] LABS: INFLUENZA A NEGATIVE (NEGATIVE); INFLUENZA B NEGATIVE (NEGATIVE); RESPIRATORY SYNCTIAL VIRUS NEGATIVE (Negative)
[2020-07-26] MEDS ORDERED: HUMALOG SQ PRN ×2 (21:19→22:50)
[2020-07-26] MEDS ORDERED: DUONEB 0.5-3 MG/3 ml Neb IH PRN (21:19)
[2020-07-26] MEDS ORDERED: TYLENOL 325 MG PO PRN (21:19)
[2020-07-26] MEDS ORDERED: Zofran 4 MG/2 ML VIAL IV PRN (21:19)
[2020-07-26] MEDS ORDERED: ZOCOR 20MG PO SCH (23:02)
[2020-07-26] MEDS: Lopressor 25MG Tab PO SCH (23:08)
[2020-07-26] MEDS: ELIQUIS 2.5 MG TABLET PO SCH (23:08)
[2020-07-26] MEDS: Pepcid 20 MG VIAL IV SCH (23:09)
[2020-07-27 05:44] LABS: Absolute Neutrophil Ct (ANC) 2.76 (1.4-6.9); BASOPHIL % 0.4 % (0.0-0.4); Basophil (Absolute #) 0.03 (0-0.4); Eosinophil % 8.1 % (0.00-5.0); Eosinophil (Absolute #) 0.57 (0-0.5); Hematocrit 33.9 % (35-47); Hemoglobin 11.1 gm/dl (12.0-16.0); Lymphocytes % 38.6 % (24.0-44.0); Mean Cell Volume 100.3 fl (78-100); Mean Corpuscular Hemoglobin 32.8 pg (26-32); Mean Corpuscular Hgb Concent. 32.7 g/dl (32-36); Mean Platelet Volume 10.8 fl (7.5-11.0); Monocyte (Absolute #) 0.94 (0.0-1.3); Monocytes % 13.4 % (0.0-12.0); Neutrophil % 39.5 % (36.0-66.0); Platelet Count 278 K/mm3 (150-450); Red Blood Count 3.38 M/mm3 (4.1-5.4); Red Cell Distribution Width 15.9 % (11.5-14.0)
[2020-07-27 05:52] LABS: ALBUMIN 2.8 g/dL (3.5-5.0); ALKALINE PHOSPHATASE 81 U/L (38-126); ANION GAP 7.4 MEQ/L (5-15); BLOOD UREA NITROGEN 21 mg/dL (7-17); CHLORIDE 107 mmol/L (98-107); Calcium 8.9 mg/dL (8.4-10.2); Carbon Dioxide 27 mmol/L (22-30); Creatinine 1 0.89 mg/dL (0.52-1.04); EST GLOMERULAR FILTRATION RATE > 60.0 ML/MIN; Glucose 81 mg/dL (74-106); Potassium 3.7 mmol/L (3.5-5.1); SGOT/AST 28 U/L (14-36); SGPT/ALT 13 U/L (0-35); SODIUM 138 mmol/L (137-145); Total Protein 5.4 g/dL (6.3-8.2)
[2020-07-27] MEDS: ELIQUIS 2.5 MG TABLET PO SCH (09:35)
[2020-07-27] MEDS: Lopressor 25MG Tab PO SCH (09:35)
[2020-07-27] MEDS: Pepcid 20 MG VIAL IV SCH (09:36)
[2020-07-27] MEDS ORDERED: NON-FORMULARY ITEM (Omeprazole 20 Mg [Prilosec 20 Mg] 20 MG) PO SCH (10:00)
[2020-07-27] MEDS ORDERED: NON-FORMULARY ITEM (Aspirin [Aspirin] 81 MG) PO SCH (10:00)
[2020-07-27] MEDS ORDERED: Benicar 20 MG PO SCH (10:00)
[2020-07-27] MEDS ORDERED: AMINO ACIDS PO SCH (10:00)
[2020-07-27] MEDS ORDERED: ECOTRIN 81 MG PO SCH (10:00)
[2020-07-27] MEDS ORDERED: Tricor 145 MG PO SCH (10:00)
[2020-07-27] MEDS ORDERED: Protonix 40MG Tablet PO SCH (10:00)
[2020-07-27] MEDS ORDERED: THERAGRAN MULTIVITAMIN PO SCH (10:00)
[2020-07-27] MEDS ORDERED: Glucotrol Xl 2.5 MG PO SCH (10:00)
[2020-07-27] MEDS ORDERED: MV FE OTHER MIN PO SCH (10:00)
[2020-07-27] MEDS ORDERED: OLMESARTAN MEDOXOMIL PO SCH (10:00)
[2020-07-27] MEDS ORDERED: Imdur 30 MG PO SCH (10:00)
[2020-07-27] MEDS ORDERED: FENOFIBRATE NANOCRYSTALLIZED 160 MG PO SCH (10:00)
[2020-07-27 11:28] VITALS: O2SAT 95
[2020-07-27] MEDS ORDERED: Acidophilus TABLET PO SCH (13:00)
[2020-07-27 16:13] VITALS: BP 127/59; PULSE 62
--- NOTE | 2020-07-27 19:50 | PCM.SSS ---
History of Present Illness - Chief Complaint Chief Complaint: Syncope and collapse History of Present Illness: is a 84 year old female. Medications & Allergies Home Medications: Home Medication List Aspirin 81 mg PO DAILY 04/04/13 [History Confirmed 07/26/20] Fenofibrate Nanocrystallized [Tricor] 160 mg PO DAILY 04/04/13 [History Confirmed 07/26/20] Glipizide 2.5 mg [Glucotrol Xl 2.5 MG] 2.5 mg PO DAILY 04/04/13 [History Confirmed 07/26/20] Isosorbide Mononitrate 30 mg [Imdur 30 MG] 60 mg PO DAILY 04/04/13 [History Confirmed 07/26/20] Levothyroxine Sodium 112 Mcg [Synthroid 112 Mcg] 88 mg PO DAILY 04/04/13 [History Confirmed 07/26/20] Metoprolol Tartrate 25 mg PO BID 04/04/13 [History Confirmed 07/26/20] Omeprazole 20 MG [Prilosec 20 mg] 20 mg PO DAILY 04/04/13 [History Confirmed 07/26/20] Amino Acids/Mv,Fe,Other Min [Ocuvite Extra Tablet] 1 each PO DAILY 09/14/16 [History Confirmed 07/26/20] Apixaban [Eliquis] 1 tab PO BID 07/26/20 [History Confirmed 07/26/20] Atorvastatin Calcium [Lipitor 40Mg] 1 tab PO HS 07/26/20 [History Confirmed 07/26/20] Olmesartan Medoxomil [Benicar] 1 tab PO DAILY 07/26/20 [History Confirmed 07/26/20] PARoxetine HCl [Paxil] 1 tab PO DAILY 07/26/20 [History Confirmed 07/26/20] Levofloxacin [Levaquin] 500 mg PO DAILY 3 Days #3 tablet 07/27/20 [Rx] Allergies/Adverse Reactions: Allergies Allergy/AdvReac Type Severity Reaction Status Date / Time penicillin G Allergy Verified 07/26/20 15:24 acetaminophen [From [place]] AdvReac Verified 07/26/20 15:24 hydrocodone bitartrate AdvReac Verified 07/26/20 15:24 [From [place]] lisinopril AdvReac Verified 07/26/20 15:24 procainamide HCl AdvReac Verified 07/26/20 15:24 [From [place]] PRESANTINE Allergy Uncoded 07/26/20 15:24 - Past Medical History Past Medical History: Yes Neurological History: No Pertinent History, TIA ENT History: No Pertinent History, Cataracts Cardiac History: High Cholesterol, Hypertension Respiratory History: No Pertinent History Endocrine Medical History: Diabetes Type II, Hypothyroidism Musculoskelatal History: Osteoarthritis GI Medical History: GERD History: No Pertinent History Pyscho-Social History: No Pertinent History Reproductive Disorders: No Pertinent History Comment: B TKA, L ankle fracture with hardware. 2-3 fainting spells, the last was 3 years ago. Nausea, SOB - Female History Are you now?: No - Past Surgical History Past Surgical History: Yes Neuro Surgical History: No Pertinent History Cardiac History: No Pertinent History Respiratory Surgery: No Pertinent History GI Surgical History: No Pertinent History Genitourinary Surgical Hx: No Pertinent History Musculskeletal Surgical Hx: Joint Replacement Female Surgical History: Other Other Surgical History: bilat knee replacement. 3x D&C. 3x breast biopsies - Social History Smoking Status: Never smoker Exposure to second hand smoke: No Alcohol: None Drug Use: none - Physical Exam Vital Signs: Vital Signs - 24 hr Temp Pulse Resp BP Pulse Ox 07/27/20 16:00 98.1 F 62 16 127/59 95 07/27/20 12:00 16 07/27/20 11:28 96.9 F 69 16 142/61 95 07/27/20 08:00 98.9 F 67 16 162/70 93 L 07/27/20 04:10 98.0 F 60 18 145/64 95 07/27/20 04:00 18 07/27/20 00:00 19 07/26/20 22:14 71 19 93 L 07/26/20 20:47 68 158/71 94 L Results - Labs Lab/Micro Results: Lab Results-Last 24 Hours 07/26/20 07/26/20 07/27/20 Range/Units 22:00 22:10 04:52 WBC 7.0 (4.0-10.5) K/mm3 RBC 3.38 L (4.1-5.4) M/mm3 Hgb 11.1 L (12.0-16.0) gm/dl Hct 33.9 L (35-47) % MCV 100.3 H (78-100) fl MCH 32.8 H (26-32) pg MCHC 32.7 (32-36) g/dl RDW 15.9 H (11.5-14.0) % Plt Count 278 (150-450) K/mm3 MPV 10.8 (7.5-11.0) fl Gran % 39.5 (36.0-66.0) % Eos # (Auto) 0.57 H (0-0.5) Absolute Lymphs (auto) 2.70 (1.0-4.6) Absolute Monos (auto) 0.94 (0.0-1.3) Lymphocytes % 38.6 (24.0-44.0) % Monocytes % 13.4 H (0.0-12.0) % Eosinophils % 8.1 H (0.00-5.0) % Basophils % 0.4 (0.0-0.4) % Absolute Granulocytes 2.76 (1.4-6.9) Basophils # 0.03 (0-0.4) Sodium (137-145) mmol/L Potassium (3.5-5.1) mmol/L Chloride (98-107) mmol/L Carbon Dioxide (22-30) mmol/L Anion Gap (5-15) MEQ/L BUN (7-17) mg/dL Creatinine (0.52-1.04) mg/dL Estimated GFR ML/MIN Glucose (74-106) mg/dL POC Glucometer 75 (74 to 106) mg/dL Hemoglobin A1c (4.5-6.0) % Calcium (8.4-10.2) mg/dL Total Bilirubin (0.2-1.3) mg/dL AST (14-36) U/L ALT (0-35) U/L Alkaline Phosphatase (38-126) U/L Troponin I < 0.012 (0.000-0.034) ng/mL Serum Total Protein (6.3-8.2) g/dL Albumin (3.5-5.0) g/dL 07/27/20 07/27/20 07/27/20 Range/Units 04:52 05:00 07:29 WBC (4.0-10.5) K/mm3 RBC (4.1-5.4) M/mm3 Hgb (12.0-16.0) gm/dl Hct (35-47) % MCV (78-100) fl MCH (26-32) pg MCHC (32-36) g/dl RDW (11.5-14.0) % Plt Count (150-450) K/mm3 MPV (7.5-11.0) fl Gran % (36.0-66.0) % Eos # (Auto) (0-0.5) Absolute Lymphs (auto) (1.0-4.6) Absolute Monos (auto) (0.0-1.3) Lymphocytes % (24.0-44.0) % Monocytes % (0.0-12.0) % Eosinophils % (0.00-5.0) % Basophils % (0.0-0.4) % Absolute Granulocytes (1.4-6.9) Basophils # (0-0.4) Sodium 138 (137-145) mmol/L Potassium 3.7 (3.5-5.1) mmol/L Chloride 107 (98-107) mmol/L Carbon Dioxide 27 (22-30) mmol/L Anion Gap 7.4 (5-15) MEQ/L BUN 21 H (7-17) mg/dL Creatinine 0.89 (0.52-1.04) mg/dL Estimated GFR > 60.0 ML/MIN Glucose 81 (74-106) mg/dL POC Glucometer 77 (74 to 106) mg/dL Hemoglobin A1c 5.82 (4.5-6.0) % Calcium 8.9 (8.4-10.2) mg/dL Total Bilirubin 0.40 (0.2-1.3) mg/dL AST 28 (14-36) U/L ALT 13 (0-35) U/L Alkaline Phosphatase 81 (38-126) U/L Troponin I (0.000-0.034) ng/mL Serum Total Protein 5.4 L (6.3-8.2) g/dL Albumin 2.8 L (3.5-5.0) g/dL 07/27/20 Range/Units 10:51 WBC (4.0-10.5) K/mm3 RBC (4.1-5.4) M/mm3 Hgb (12.0-16.0) gm/dl Hct (35-47) % MCV (78-100) fl MCH (26-32) pg MCHC (32-36) g/dl RDW (11.5-14.0) % Plt Count (150-450) K/mm3 MPV (7.5-11.0) fl Gran % (36.0-66.0) % Eos # (Auto) (0-0.5) Absolute Lymphs (auto) (1.0-4.6) Absolute Monos (auto) (0.0-1.3) Lymphocytes % (24.0-44.0) % Monocytes % (0.0-12.0) % Eosinophils % (0.00-5.0) % Basophils % (0.0-0.4) % Absolute Granulocytes (1.4-6.9) Basophils # (0-0.4) Sodium (137-145) mmol/L Potassium (3.5-5.1) mmol/L Chloride (98-107) mmol/L Carbon Dioxide (22-30) mmol/L Anion Gap (5-15) MEQ/L BUN (7-17) mg/dL Creatinine (0.52-1.04) mg/dL Estimated GFR ML/MIN Glucose (74-106) mg/dL POC Glucometer 153 H (74 to 106) mg/dL Hemoglobin A1c (4.5-6.0) % Calcium (8.4-10.2) mg/dL Total Bilirubin (0.2-1.3) mg/dL AST (14-36) U/L ALT (0-35) U/L Alkaline Phosphatase (38-126) U/L Troponin I (0.000-0.034) ng/mL Serum Total Protein (6.3-8.2) g/dL Albumin (3.5-5.0) g/dL Microbiology 07/26/20 15:43 Urine Culture - Preliminary Clean Catch Midstream GRAM NEGATIVE ID AND SENSITIVITY PENDING Accuchecks Date 07/27/20 Date 07/27/20 - Radiology Impressions Radiology Exams & Impressions: Radiology Procedures Category Date Time Status CERVICAL SPINE WO CONTRAST [CT] Stat Exams 07/26/20 15:40 Completed CHEST 1 VIEW (PORTABLE) Stat Exams 07/26/20 15:40 Completed HEAD WITHOUT CONTRAST [CT] Stat Exams 07/26/20 15:40 Completed Hospital Summary - Vitals & Intake/Output Vital Signs: Vital Signs Temperature 98.1 F 07/27/20 16:00 Pulse Rate 62 07/27/20 16:00 Respiratory Rate 16 07/27/20 16:00 Blood Pressure 127/59 07/27/20 16:00 O2 Sat by Pulse Oximetry 95 07/27/20 16:00 Intake & Output: Intake & Output 07/25/20 07/26/20 07/27/20 07/28/20 11:59 11:59 11:59 11:59 Intake Total 554 360 Output Total 750 Balance -196 360 Weight 80 kg - Lab Result Diagrams: 07/27/20 04:52 07/27/20 04:52 Lab Results-Last 24 Hrs: Lab Results-Last 24 Hours 07/26/20 07/26/20 07/27/20 Range/Units 22:00 22:10 04:52 WBC 7.0 (4.0-10.5) K/mm3 RBC 3.38 L (4.1-5.4) M/mm3 Hgb 11.1 L (12.0-16.0) gm/dl Hct 33.9 L (35-47) % MCV 100.3 H (78-100) fl MCH 32.8 H (26-32) pg MCHC 32.7 (32-36) g/dl RDW 15.9 H (11.5-14.0) % Plt Count 278 (150-450) K/mm3 MPV 10.8 (7.5-11.0) fl Gran % 39.5 (36.0-66.0) % Eos # (Auto) 0.57 H (0-0.5) Absolute Lymphs (auto) 2.70 (1.0-4.6) Absolute Monos (auto) 0.94 (0.0-1.3) Lymphocytes % 38.6 (24.0-44.0) % Monocytes % 13.4 H (0.0-12.0) % Eosinophils % 8.1 H (0.00-5.0) % Basophils % 0.4 (0.0-0.4) % Absolute Granulocytes 2.76 (1.4-6.9) Basophils # 0.03 (0-0.4) Sodium (137-145) mmol/L Potassium (3.5-5.1) mmol/L Chloride (98-107) mmol/L Carbon Dioxide (22-30) mmol/L Anion Gap (5-15) MEQ/L BUN (7-17) mg/dL Creatinine (0.52-1.04) mg/dL Estimated GFR ML/MIN Glucose (74-106) mg/dL POC Glucometer 75 (74 to 106) mg/dL Hemoglobin A1c (4.5-6.0) % Calcium (8.4-10.2) mg/dL Total Bilirubin (0.2-1.3) mg/dL AST (14-36) U/L ALT (0-35) U/L Alkaline Phosphatase (38-126) U/L Troponin I < 0.012 (0.000-0.034) ng/mL Serum Total Protein (6.3-8.2) g/dL Albumin (3.5-5.0) g/dL 07/27/20 07/27/20 07/27/20 Range/Units 04:52 05:00 07:29 WBC (4.0-10.5) K/mm3 RBC (4.1-5.4) M/mm3 Hgb (12.0-16.0) gm/dl Hct (35-47) % MCV (78-100) fl MCH (26-32) pg MCHC (32-36) g/dl RDW (11.5-14.0) % Plt Count (150-450) K/mm3 MPV (7.5-11.0) fl Gran % (36.0-66.0) % Eos # (Auto) (0-0.5) Absolute Lymphs (auto) (1.0-4.6) Absolute Monos (auto) (0.0-1.3) Lymphocytes % (24.0-44.0) % Monocytes % (0.0-12.0) % Eosinophils % (0.00-5.0) % Basophils % (0.0-0.4) % Absolute Granulocytes (1.4-6.9) Basophils # (0-0.4) Sodium 138 (137-145) mmol/L Potassium 3.7 (3.5-5.1) mmol/L Chloride 107 (98-107) mmol/L Carbon Dioxide 27 (22-30) mmol/L Anion Gap 7.4 (5-15) MEQ/L BUN 21 H (7-17) mg/dL Creatinine 0.89 (0.52-1.04) mg/dL Estimated GFR > 60.0 ML/MIN Glucose 81 (74-106) mg/dL POC Glucometer 77 (74 to 106) mg/dL Hemoglobin A1c 5.82 (4.5-6.0) % Calcium 8.9 (8.4-10.2) mg/dL Total Bilirubin 0.40 (0.2-1.3) mg/dL AST 28 (14-36) U/L ALT 13 (0-35) U/L Alkaline Phosphatase 81 (38-126) U/L Troponin I (0.000-0.034) ng/mL Serum Total Protein 5.4 L (6.3-8.2) g/dL Albumin 2.8 L (3.5-5.0) g/dL 07/27/20 Range/Units 10:51 WBC (4.0-10.5) K/mm3 RBC (4.1-5.4) M/mm3 Hgb (12.0-16.0) gm/dl Hct (35-47) % MCV (78-100) fl MCH (26-32) pg MCHC (32-36) g/dl RDW (11.5-14.0) % Plt Count (150-450) K/mm3 MPV (7.5-11.0) fl Gran % (36.0-66.0) % Eos # (Auto) (0-0.5) Absolute Lymphs (auto) (1.0-4.6) Absolute Monos (auto) (0.0-1.3) Lymphocytes % (24.0-44.0) % Monocytes % (0.0-12.0) % Eosinophils % (0.00-5.0) % Basophils % (0.0-0.4) % Absolute Granulocytes (1.4-6.9) Basophils # (0-0.4) Sodium (137-145) mmol/L Potassium (3.5-5.1) mmol/L Chloride (98-107) mmol/L Carbon Dioxide (22-30) mmol/L Anion Gap (5-15) MEQ/L BUN (7-17) mg/dL Creatinine (0.52-1.04) mg/dL Estimated GFR ML/MIN Glucose (74-106) mg/dL POC Glucometer 153 H (74 to 106) mg/dL Hemoglobin A1c (4.5-6.0) % Calcium (8.4-10.2) mg/dL Total Bilirubin (0.2-1.3) mg/dL AST (14-36) U/L ALT (0-35) U/L Alkaline Phosphatase (38-126) U/L Troponin I (0.000-0.034) ng/mL Serum Total Protein (6.3-8.2) g/dL Albumin (3.5-5.0) g/dL Micro Results-Entire Visit: Microbiology 07/26/20 15:43 Urine Culture - Preliminary Clean Catch Midstream GRAM NEGATIVE ID AND SENSITIVITY PENDING Accuchecks Date 07/27/20 Date 07/27/20 - Radiology Exams Ordered Rad Exams-Entire Visit: Radiology Procedures Category Date Time Status CERVICAL SPINE WO CONTRAST [CT] Stat Exams 07/26/20 15:40 Completed CHEST 1 VIEW (PORTABLE) Stat Exams 07/26/20 15:40 Completed HEAD WITHOUT CONTRAST [CT] Stat Exams 07/26/20 15:40 Completed - Procedures and Test Procedures and Tests throughout Hospitalization: Therapy Orders & Screens 07/26/20 22:29 Respiratory Therapy Assessment DAILY Comment: Diagnosis: Syncope and collapse 07/27/20 12:32 PT Eval & Treat (MD Order) ONCE Reason for Eval:: syncope Diagnosis: Syncope and collapse - Discharge Disposition: Home, Self-Care Condition: Stable Prescriptions: New Levofloxacin [Levaquin] 500 mg PO DAILY 3 Days #3 tablet Continue Glipizide 2.5 mg [Glucotrol Xl 2.5 MG] 2.5 mg PO DAILY Isosorbide Mononitrate 30 mg [Imdur 30 MG] 60 mg PO DAILY Aspirin 81 mg PO DAILY Metoprolol Tartrate 25 mg PO BID Levothyroxine Sodium 112 Mcg [Synthroid 112 Mcg] 88 mg PO DAILY Fenofibrate Nanocrystallized [Tricor] 160 mg PO DAILY Omeprazole 20 MG [Prilosec 20 mg] 20 mg PO DAILY Amino Acids/Mv,Fe,Other Min [Ocuvite Extra Tablet] 1 each PO DAILY PARoxetine HCl [Paxil] 1 tab PO DAILY Apixaban [Eliquis] 1 tab PO BID Atorvastatin Calcium [Lipitor 40Mg] 1 tab PO HS Olmesartan Medoxomil [Benicar] 1 tab PO DAILY Instructions: Syncope (Fainting) (DC) Follow up with: SIMA REN MD [Primary Care Provider] - 08/03/20 2:15 pm
[2020-07-28] MEDS ORDERED: Levofloxacin 500MG/100ML D5W 500 MG/100 ML BAG IV SCH (10:00)
== END 2020-07-27 17:11 | disposition home or self-care (01) ==
LOC: ED 15:14 → MED SURG 21:10
PROVIDERS: ADMIT Family Medicine; ATTEND Family Medicine
DX: R55 Syncope and collapse (principal); I10 Essential (primary) hypertension; E78.5 Hyperlipidemia, unspecified; E11.9 Type 2 diabetes mellitus without complications; W19.XXXA Unspecified fall, initial encounter; Z79.899 Other long term (current) drug therapy; Z79.01 Long term (current) use of anticoagulants; E03.9 Hypothyroidism, unspecified; S00.03XA Contusion of scalp, initial encounter; Z20.828 Contact with and (suspected) exposure to other viral communicable diseases
CPT/HCPCS: 0241U; 36000; 36415; 70450; 71045; 72125; 80053; 81001; 82550; 82947; 83036; 84484; 85025; 87086; 93005; 93041; 93268; 94760; 96360; 96361; 96365; 97161; 99285; G0378; 87077; J1956; A9270-GY

== ENCOUNTER 2020-10-17 12:17 | Emergency (ER) | payer MEDICARE, OTHER ==
--- NOTE | 2020-10-17 12:27 | ERPHSYRPT ---
- History of Present Illness Time Seen by Provider: 10/17/20 12:27 Source: patient, family Physician History: This is an 85-year-old white female patient of Dr. Johnson who presents with left flank pain and left lower quadrant discomfort. Patient states that a month ago she was treated for urinary tract infection. She is no longer on any antibiotic. However she has also noticed last several days that her urine is been dark like the color of tea. She does see a metallurgical engineering teacher by the name of Dr. Galicia but has no shortness of breath or chest pain today. She has a history of hypertension, hypothyroidism, [id number] diabetes, elevated cholesterol, gastroesophageal reflux disease and TIAs. 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 She has not had any diarrhea or vomiting. She has had no known fevers. Timing/Duration: today Method of Injury: other (No injury) Quality: sharp Back Pain Location: paraspinous muscles (Left) Severity of Pain-Max: moderate Severity of Pain-Current: moderate Associated Symptoms: denies symptoms Previous symptoms: same symptoms as today (Remote past she has had a history of ureteral) Allergies/Adverse Reactions: penicillin G Allergy (Verified 10/17/20 12:34) acetaminophen [From [place]] Adverse Reaction (Verified 10/17/20 12:34) hydrocodone bitartrate [From [place]] Adverse Reaction (Verified 10/17/20 12:34) lisinopril Adverse Reaction (Verified 10/17/20 12:34) procainamide HCl [From P[place]] Adverse Reaction (Verified 10/17/20 12:34) PRESANTINE Allergy (Uncoded 10/17/20 12:34) Home Medications: Aspirin 81 mg PO DAILY 04/04/13 [History] Fenofibrate Nanocrystallized [Tricor] 160 mg PO DAILY 04/04/13 [History] Glipizide 2.5 mg [Glucotrol Xl 2.5 MG] 2.5 mg PO DAILY 04/04/13 [History] Isosorbide Mononitrate 30 mg [Imdur 30 MG] 60 mg PO DAILY 04/04/13 [History] Levothyroxine Sodium 112 Mcg [Synthroid 112 Mcg] 88 mg PO DAILY 04/04/13 [History] Metoprolol Tartrate 25 mg PO BID 04/04/13 [History] Omeprazole 20 MG [Prilosec 20 mg] 20 mg PO DAILY 04/04/13 [History] Amino Acids/Mv,Fe,Other Min [Ocuvite Extra Tablet] 1 each PO DAILY 09/14/16 [History] Apixaban [Eliquis] 1 tab PO BID 07/26/20 [History] Atorvastatin Calcium [Lipitor 40Mg] 1 tab PO HS 07/26/20 [History] Olmesartan Medoxomil [Benicar] 1 tab PO DAILY 07/26/20 [History] PARoxetine HCl [Paxil] 1 tab PO DAILY 07/26/20 [History] Hx Tetanus, Diphtheria Vaccination/Date Given: No Hx Influenza Vaccination/Date Given: Yes Hx Pneumococcal Vaccination/Date Given: Yes Travel Risk - International Travel Have you traveled outside of the country in past 3 weeks: No - Coronavirus Screening Are you exhibiting any of the following symptoms?: No Close contact with a COVID-19 positive Pt in past 14-21 Days: No - Vaccine Status Have you recieved a Covid-19 vaccination: Yes Group Cio: Moderna - Vaccination Dates Date of 2cond Vaccination (if applicable): 05/30/2020 - Review of Systems Constitutional: No Symptoms Eyes: No Symptoms Ears, Nose, & Throat: No Symptoms Respiratory: No Symptoms Cardiac: No Symptoms Abdominal/Gastrointestinal: Abdominal Pain (Left lower quadrant pain) Genitourinary Symptoms: Flank Pain (Left) Musculoskeletal: No Symptoms Skin: No Symptoms Neurological: No Symptoms Psychological: No Symptoms Endocrine: No Symptoms Hematologic/Lymphatic: No Symptoms Immunological/Allergic: No Symptoms All Other Systems: Reviewed and Negative - Past Medical History Pertinent Past Medical History: Yes Neurological History: No Pertinent History, TIA ENT History: No Pertinent History, Cataracts Cardiac History: High Cholesterol, Hypertension Respiratory History: No Pertinent History Endocrine Medical History: Diabetes Type II, Hypothyroidism Musculoskeletal History: Osteoarthritis GI Medical History: GERD History: No Pertinent History Psycho-Social History: No Pertinent History Female Reproductive Disorders: No Pertinent History Other Medical History: B TKA, L ankle fracture with hardware. 2-3 fainting spells, the last was 3 years ago. Nausea, SOB - Past Surgical History Past Surgical History: Yes Neuro Surgical History: No Pertinent History Cardiac: No Pertinent History Respiratory: No Pertinent History Gastrointestinal: No Pertinent History Genitourinary: No Pertinent History Musculoskeletal: Joint Replacement Female Surgical History: Other Other Surgical History: bilat knee replacement. 3x D&C. 3x breast biopsies - Social History Smoking Status: Never smoker Exposure to second hand smoke: No Drug Use: none Patient Lives Alone: Yes - Nursing Vital Signs Nursing Vital Signs: Initial Vital Signs Temperature 96.9 F 10/17/20 12:23 Pulse Rate 75 10/17/20 12:23 Respiratory Rate 19 10/17/20 12:23 Blood Pressure 221/112 10/17/20 12:23 O2 Sat by Pulse Oximetry 95 10/17/20 12:23 Pain Scale Pain Intensity 5 - Physical Exam General Appearance: mild distress, alert, anxiety Eye Exam: PERRL/EOMI, eyes nml inspection Ears, Nose, Throat Exam: normal ENT inspection, moist mucous membranes Neck Exam: normal inspection, non-tender, supple, full range of motion Respiratory Exam: normal breath sounds, lungs clear, airway intact, No chest tenderness, No respiratory distress Cardiovascular Exam: regular rate/rhythm, normal heart sounds, normal peripheral pulses Gastrointestinal Exam: soft, normal bowel sounds, tenderness (Mild left lower quadrant), No guarding, No rebound Pelvic Exam: not done Rectal Exam: not done Back Exam: normal inspection, normal range of motion, CVA tenderness (Left), No vertebral tenderness Extremity Exam: normal inspection, normal range of motion, pelvis stable Neurologic Exam: alert, oriented x 3, cooperative, manager material II-XII nml as tested, normal mood/affect, nml cerebellar function, nml station & gait, sensation nml Skin Exam: normal color, warm, dry Lymphatic Exam: No adenopathy SpO2 Interpretation: normal O2 Delivery: Room Air - Course Nursing assessment & vital signs reviewed: Yes Ordered Tests: Active Orders 24 hr Category Date Time Status IV Insertion STAT Care 10/17/20 12:45 Active ABDOMEN AND PELVIS W/0 CONTRAS [CT] Stat Exams 10/17/20 12:46 Taken AMYLASE Stat Lab 10/17/20 13:00 Completed CBC W DIFF Stat Lab 10/17/20 13:00 Completed CMP Stat Lab 10/17/20 13:00 Completed CULTURE,URINE Stat Lab 10/17/20 13:19 Received LIPASE Stat Lab 10/17/20 13:00 Completed Lactic Acid Stat Lab 10/17/20 12:45 Completed UA W/RFX UR CULTURE Stat Lab 10/17/20 13:19 Completed Medication Summary Generic Name Dose Route Start Last Admin Trade Name Monisha PRN Reason Stop Dose Admin Tamsulosin HCl 0.4 mg 10/18/20 14:23 10/17/20 14:32 Flomax 0.4 Mg PO 10/18/20 14:24 0.4 mg STAT ONE Administration Discontinued Medications Generic Name Dose Route Start Last Admin Trade Name Monisha PRN Reason Stop Dose Admin Hydromorphone HCl 0.5 mg 10/17/20 12:45 10/17/20 13:42 Hydromorphone 1 Mg/Ml Injection IV 10/17/20 12:46 0.5 mg STAT ONE Administration Hydromorphone HCl Confirm 10/17/20 13:11 Hydromorphone 1 Mg/Ml Injection Administered 10/17/20 13:12 Dose 1 mg .ROUTE .STK-MED ONE Sodium Chloride 1,000 mls @ 999 mls/hr 10/17/20 12:45 10/17/20 13:43 Sodium Chloride 0.9% 1000 Ml IV 10/17/20 13:45 999 mls/hr .Q1H1M STA Administration Sodium Chloride Confirm 10/17/20 13:12 Sodium Chloride 0.9% 1000 Ml Administered 10/17/20 13:13 Dose 1,000 mls @ ud .ROUTE .STK-MED ONE Levofloxacin 500 mg 10/17/20 13:47 10/17/20 14:31 Levofloxacin 500 Mg Tablet PO 10/17/20 13:48 500 mg STAT ONE Administration Levofloxacin Confirm 10/17/20 14:29 Levofloxacin 500 Mg Tablet Administered 10/17/20 14:30 Dose 500 mg .ROUTE .STK-MED ONE Ondansetron HCl 4 mg 10/17/20 12:45 10/17/20 13:41 Zofran 4 Mg/2 Ml Vial IV 10/17/20 12:46 4 mg STAT ONE Administration Ondansetron HCl Confirm 10/17/20 13:11 Zofran 4 Mg/2 Ml Vial Administered 10/17/20 13:12 Dose 4 mg .ROUTE .STK-MED ONE Tamsulosin HCl Confirm 10/17/20 14:31 Flomax 0.4 Mg Administered 10/17/20 14:32 Dose 0.4 mg .ROUTE .STK-MED ONE Lab/Rad Data: Laboratory Result Diagrams 10/17/20 13:00 10/17/20 13:00 Laboratory Results 10/17/20 10/17/20 10/17/20 Range/Units 13:19 13:00 13:00 WBC 9.2 (4.0-10.5) K/mm3 RBC 3.73 L (4.1-5.4) M/mm3 Hgb 12.4 (12.0-16.0) gm/dl Hct 38.5 (35-47) % MCV 103.2 H (78-100) fl MCH 33.2 H (26-32) pg MCHC 32.2 (32-36) g/dl RDW 12.6 (11.5-14.0) % Plt Count 223 (150-450) K/mm3 MPV 10.7 (7.5-11.0) fl Gran % 53.5 (36.0-66.0) % Eos # (Auto) 0.42 (0-0.5) Absolute Lymphs (auto) 3.02 (1.0-4.6) Absolute Monos (auto) 0.82 (0.0-1.3) Lymphocytes % 32.8 (24.0-44.0) % Monocytes % 8.9 (0.0-12.0) % Eosinophils % 4.6 (0.00-5.0) % Basophils % 0.2 (0.0-0.4) % Absolute Granulocytes 4.94 (1.4-6.9) Basophils # 0.02 (0-0.4) Sodium 135 L (137-145) mmol/L Potassium 4.0 (3.5-5.1) mmol/L Chloride 100 (98-107) mmol/L Carbon Dioxide 25 (22-30) mmol/L Anion Gap 13.6 (5-15) MEQ/L BUN 20 H (7-17) mg/dL Creatinine 0.91 (0.52-1.04) mg/dL Estimated GFR > 60.0 ML/MIN Glucose 187 H (74-106) mg/dL Lactic Acid (0.4-2.0) Calcium 9.5 (8.4-10.2) mg/dL Total Bilirubin 0.30 (0.2-1.3) mg/dL AST 26 (14-36) U/L ALT 12 (0-35) U/L Alkaline Phosphatase 109 (38-126) U/L Serum Total Protein 6.7 (6.3-8.2) g/dL Albumin 3.4 L (3.5-5.0) g/dL Amylase 58 (30-110) U/L Lipase 88 (23-300) U/L Urine Color YELLOW (YELLOW) Urine Appearance CLOUDY (CLEAR) Urine pH 5.0 (5-6) Ur Specific [place] 1.015 (1.005-1.025) Urine Protein 30 (Negative) Urine Ketones NEGATIVE (NEGATIVE) Urine Blood LARGE (0-5) Huan/ul Urine Nitrite NEGATIVE (NEGATIVE) Urine Bilirubin NEGATIVE (NEGATIVE) Urine Urobilinogen NEGATIVE (0-1) mg/dL Ur Leukocyte Esterase NEGATIVE (NEGATIVE) Urine WBC (Auto) 11-15 (0-5) /HPF Urine RBC (Auto) >101 (0-2) /HPF U Epithel Cells (Auto) RARE (FEW) /HPF Urine Bacteria (Auto) FEW (NEGATIVE) /HPF Urine Mucus (Auto) SLIGHT (NEGATIVE) /HPF Urine Culture Reflexed YES (NO) Urine Glucose NEGATIVE (NEGATIVE) mg/dL 10/17/20 Range/Units 12:45 WBC (4.0-10.5) K/mm3 RBC (4.1-5.4) M/mm3 Hgb (12.0-16.0) gm/dl Hct (35-47) % MCV (78-100) fl MCH (26-32) pg MCHC (32-36) g/dl RDW (11.5-14.0) % Plt Count (150-450) K/mm3 MPV (7.5-11.0) fl Gran % (36.0-66.0) % Eos # (Auto) (0-0.5) Absolute Lymphs (auto) (1.0-4.6) Absolute Monos (auto) (0.0-1.3) Lymphocytes % (24.0-44.0) % Monocytes % (0.0-12.0) % Eosinophils % (0.00-5.0) % Basophils % (0.0-0.4) % Absolute Granulocytes (1.4-6.9) Basophils # (0-0.4) Sodium (137-145) mmol/L Potassium (3.5-5.1) mmol/L Chloride (98-107) mmol/L Carbon Dioxide (22-30) mmol/L Anion Gap (5-15) MEQ/L BUN (7-17) mg/dL Creatinine (0.52-1.04) mg/dL Estimated GFR ML/MIN Glucose (74-106) mg/dL Lactic Acid 1.4 (0.4-2.0) Calcium (8.4-10.2) mg/dL Total Bilirubin (0.2-1.3) mg/dL AST (14-36) U/L ALT (0-35) U/L Alkaline Phosphatase (38-126) U/L Serum Total Protein (6.3-8.2) g/dL Albumin (3.5-5.0) g/dL Amylase (30-110) U/L Lipase (23-300) U/L Urine Color (YELLOW) Urine Appearance (CLEAR) Urine pH (5-6) Ur Specific Keller (1.005-1.025) Urine Protein (Negative) Urine Ketones (NEGATIVE) Urine Blood (0-5) Huan/ul Urine Nitrite (NEGATIVE) Urine Bilirubin (NEGATIVE) Urine Urobilinogen (0-1) mg/dL Ur Leukocyte Esterase (NEGATIVE) Urine WBC (Auto) (0-5) /HPF Urine RBC (Auto) (0-2) /HPF U Epithel Cells (Auto) (FEW) /HPF Urine Bacteria (Auto) (NEGATIVE) /HPF Urine Mucus (Auto) (NEGATIVE) /HPF Urine Culture Reflexed (NO) Urine Glucose (NEGATIVE) mg/dL - Progress Progress: improved, re-examined Progress Note: 10/17/20 14:32 CAT scan of the abdomen pelvis without contrast shows a 5 mm left ureteral stone at the level of the L3 vertebral body with moderate left hydronephrosis. 10/17/20 14:42 Medical decision making: This patient desires to try hydrocodone/acetaminophen. She does not have a true allergy. She gets loopy and confused. Patient also states that she can take ibuprofen without any issues or problems. Counseled pt/family regarding: lab results, diagnosis, need for follow-up, rad results - Departure Departure Disposition: Home Clinical Impression: Left ureteral stone, Urinary tract infection Condition: Stable Critical Care Time: No Referrals: SIMA JOHNSON MD [Primary Care Provider] - Additional Instructions: Drink plenty of fluids. Take medication as prescribed. Return to the emergency department if symptoms worsen. Follow-up with urologist of choice if symptoms persist. Prescriptions: Hydrocodone/APAP 5/325 [[place] 5/325 mg] 1 each PO Q8H PRN PRN #6 tablet MDD 3 PRN Reason: Pain Ciprofloxacin [Cipro 500 MG] 500 mg PO BID #14 tablet Tamsulosin HCl 0.4 mg [Flomax 0.4 MG] 0.4 mg PO DAILY #7 cap Hydrocodone/APAP 5/325 [[place] 5/325 mg] 1 each PO Q8H PRN #6 tablet MDD 3 PRN Reason: Pain
[2020-10-17] MEDS ORDERED: Hydromorphone 1 mg/ml Injection IV ONE (12:45)
[2020-10-17] MEDS ORDERED: Zofran 4 MG/2 ML VIAL IV ONE (12:45)
[2020-10-17] MEDS ORDERED: Sodium Chloride 0.9% 1000 ML 1,000 ML IV STA (12:45)
[2020-10-17] MEDS ORDERED: Hydromorphone 1 mg/ml Injection ONE (13:11)
[2020-10-17] MEDS ORDERED: Zofran 4 MG/2 ML VIAL ONE (13:11)
[2020-10-17] MEDS ORDERED: Sodium Chloride 0.9% 1000 ML 1,000 ML ONE (13:12)
[2020-10-17 13:15] LABS: Absolute Neutrophil Ct (ANC) 4.94 (1.4-6.9); BASOPHIL % 0.2 % (0.0-0.4); Basophil (Absolute #) 0.02 (0-0.4); Eosinophil % 4.6 % (0.00-5.0); Eosinophil (Absolute #) 0.42 (0-0.5); Hematocrit 38.5 % (35-47); Hemoglobin 12.4 gm/dl (12.0-16.0); Lymphocyte (Absolute #) 3.02 (1.0-4.6); Lymphocytes % 32.8 % (24.0-44.0); Mean Cell Volume 103.2 fl (78-100); Mean Corpuscular Hemoglobin 33.2 pg (26-32); Mean Corpuscular Hgb Concent. 32.2 g/dl (32-36); Mean Platelet Volume 10.7 fl (7.5-11.0); Monocyte (Absolute #) 0.82 (0.0-1.3); Monocytes % 8.9 % (0.0-12.0); Neutrophil % 53.5 % (36.0-66.0); Platelet Count 223 K/mm3 (150-450); Red Blood Count 3.73 M/mm3 (4.1-5.4); Red Cell Distribution Width 12.6 % (11.5-14.0); White Blood Count 9.2 K/mm3 (4.0-10.5)
[2020-10-17 13:24] LABS: ALBUMIN 3.4 g/dL (3.5-5.0); ALKALINE PHOSPHATASE 109 U/L (38-126); AMYLASE 58 U/L (30-110); ANION GAP 13.6 MEQ/L (5-15); BLOOD UREA NITROGEN 20 mg/dL (7-17); CHLORIDE 100 mmol/L (98-107); Calcium 9.5 mg/dL (8.4-10.2); Carbon Dioxide 25 mmol/L (22-30); Creatinine 1 0.91 mg/dL (0.52-1.04); EST GLOMERULAR FILTRATION RATE > 60.0 ML/MIN; Glucose 187 mg/dL (74-106); LIPASE 88 U/L (23-300); SGOT/AST 26 U/L (14-36); SGPT/ALT 12 U/L (0-35); SODIUM 135 mmol/L (137-145); Total Protein 6.7 g/dL (6.3-8.2)
[2020-10-17 13:29] LABS: Appearance CLOUDY (CLEAR); Bacteria FEW /HPF (NEGATIVE); Bilirubin NEGATIVE (NEGATIVE); Blood LARGE Ery/ul (0-5); Epithelial Cells RARE /HPF (FEW); Glucose NEGATIVE (NEGATIVE); Ketones NEGATIVE (NEGATIVE); Leukocyte Esterase NEGATIVE (NEGATIVE); Mucus SLIGHT /HPF (NEGATIVE); Nitrite NEGATIVE (NEGATIVE); Protein,Urine Dip 30 (Negative); RBC >101 /HPF (0-2); Specific Gravity 1.015 (1.005-1.025); Urobilinogen NEGATIVE mg/dL (0-1)
[2020-10-17] MEDS ORDERED: Levofloxacin 500 MG Tablet PO ONE (13:47)
[2020-10-17] MEDS ORDERED: Levofloxacin 500 MG Tablet ONE (14:29)
[2020-10-17] MEDS ORDERED: Flomax 0.4 MG ONE (14:31)
[2020-10-17 15:30] VITALS: BP 151/96; PULSE 72; O2SAT 99
--- NOTE | 2020-10-17 19:51 | XRAY ---
Indication: Left flank/left lower quadrant pain. Multiple contiguous axial images obtained through the abdomen and pelvis without contrast. Comparison: September 14, 2016. Lung bases demonstrates new 3 cm peripheral left lower lobe wedge-shaped consolidation either atelectasis/scarring versus organizing pneumonia. There remains scattered fibrosis/scarring bilaterally. No effusion. Heart not enlarged. Stable small hiatal hernia. Noncontrasted stomach and bowel loops remain nonobstructed with normal appendix. There has been interval cholecystectomy. No free fluid/air. New 5 mm left proximal ureter calculus, approximately L3-L4 level. Proximal ureters highly prominent and mild hydronephrosis consistent with partial obstructive uropathy. Enlarging 1.1 cm nonobstructing right renal calculus. Stable tiny calcified uterine fibroids. Remaining liver, pancreas, spleen, adrenal glands, kidneys, ureters, bladder, and uterus are unremarkable for noncontrast exam. There remains heavy scattered aortoiliac calcifications without AAA. Osseous structures again demonstrates osteopenia, mild/moderate multilevel thoracolumbar degenerative spondylosis, and grade 1 anterolisthesis of L4 on L5 on S1. Impression: 1. New 5 mm proximal left ureter calculus producing partial obstruction. Enlarging nonobstructing right renal calculus. 2. New left lower lobe consolidating opacity either atelectasis/scarring versus organizing pneumonia. 3. Again incidental small hiatal hernia, calcified uterine fibroids, and chronic bony findings. Comment: Preliminary interpretation made by [facility]. No critical discrepancy.
[2020-10-18] MEDS ORDERED: Flomax 0.4 MG PO ONE (14:23)
== END 2020-10-17 15:20 | disposition home or self-care (01) ==
LOC: ED 12:17
DX: N20.1 Calculus of ureter (principal); N39.0 Urinary tract infection, site not specified
CPT/HCPCS: 36000; 36415; 74176; 80053; 81001; 82150; 83605; 83690; 85025; 87086; 96374; 96375; 99284; J1170; J2405; A9270-GY

== ENCOUNTER 2022-05-31 05:28 | Emergency (ER) | payer MEDICARE, OTHER ==
--- NOTE | 2022-05-31 06:31 | ERPHSYRPT ---
- History of Present Illness Time Seen by Provider: 05/31/22 06:05 Source: patient Exam Limitations: no limitations Patient Subjective Stated Complaint: Pt reports "I fell last night around 10:30 or 11. I think I may have landed on my wrist but I am not sure. It didn't hurt to bad then but it really hurts this morning." Triage Nursing Assessment: Pt alert and oriented x3. No apparent respiratory distress. Skin w/p/d. Wheeled to ED cot by pts daughter and transfered to ED cot with assist x1. Right wrist swollen, bruised and tender to touch. Tenderness extends into lower right forearm. Physician History: Patient is an 86-year-old white female who fell on her right wrist approximately 7 hours prior to arrival. She complains of pain over the first metatarsal phalangeal joint there is bruising and swelling she does not have limited range of motion necessarily just with pain. She is swollen discolored she is on Eliquis which may explain some of the bruising. Her neurovascular tendon is intact Occurred: other (Last night) Method of Injury: fell Quality: throbbing Severity of Pain-Max: severe Severity of Pain-Current: moderate Extremities Pain Location: wrist: right Modifying Factors: Improves With: movement Allergies/Adverse Reactions: penicillin G Allergy (Verified 05/31/22 05:37) acetaminophen [From [place]] Adverse Reaction (Verified 05/31/22 05:37) hydrocodone bitartrate [From [place]] Adverse Reaction (Verified 05/31/22 05:37) lisinopril Adverse Reaction (Verified 05/31/22 05:37) procainamide HCl [From Pronestyl] Adverse Reaction (Verified 05/31/22 05:37) PRESANTINE Allergy (Uncoded 05/31/22 05:37) Home Medications: Aspirin 81 mg PO DAILY 04/04/13 [History] Fenofibrate Nanocrystallized [Tricor] 160 mg PO DAILY 04/04/13 [History] Glipizide 2.5 mg [Glucotrol Xl 2.5 MG] 2.5 mg PO DAILY 04/04/13 [History] Isosorbide Mononitrate 30 mg [Imdur 30 MG] 60 mg PO DAILY 04/04/13 [History] Levothyroxine Sodium 112 Mcg [Synthroid 112 Mcg] 88 mg PO DAILY 04/04/13 [History] Metoprolol Tartrate 25 mg PO BID 04/04/13 [History] Omeprazole 20 MG [Prilosec 20 mg] 20 mg PO DAILY 04/04/13 [History] Amino Acids/Mv,Fe,Other Min [Ocuvite Extra Tablet] 1 each PO DAILY 09/14/16 [History] Apixaban [Eliquis] 1 tab PO BID 07/26/20 [History] Atorvastatin Calcium [Lipitor 40Mg] 1 tab PO HS 07/26/20 [History] Olmesartan Medoxomil [Benicar] 1 tab PO DAILY 07/26/20 [History] PARoxetine HCL [Paxil] 1 tab PO DAILY 07/26/20 [History] Hx Tetanus, Diphtheria Vaccination/Date Given: Yes Hx Influenza Vaccination/Date Given: Yes Hx Pneumococcal Vaccination/Date Given: Yes Travel Risk - International Travel Have you traveled outside of the country in past 3 weeks: No - Coronavirus Screening Are you exhibiting any of the following symptoms?: No Close contact with a COVID-19 positive Pt in past 14-21 Days: No - Vaccine Status Have you recieved a Covid-19 vaccination: Yes Mold Insert Changer: Moderna - Vaccination Dates Date of 2cond Vaccination (if applicable): 05/30/2020 - Review of Systems Constitutional: No Fever, No Chills Eyes: No Symptoms Ears, Nose, & Throat: No Symptoms Respiratory: No Cough, No Dyspnea Cardiac: No Chest Pain, No Edema, No Syncope Abdominal/Gastrointestinal: No Abdominal Pain, No Nausea, No Vomiting, No Diarrhea Genitourinary Symptoms: No Dysuria Musculoskeletal: No Back Pain, No Neck Pain Skin: No Rash Neurological: No Dizziness, No Focal Weakness, No Sensory Changes Psychological: No Symptoms Endocrine: No Symptoms All Other Systems: Reviewed and Negative - Past Medical History Pertinent Past Medical History: Yes Neurological History: No Pertinent History, TIA ENT History: No Pertinent History, Cataracts Cardiac History: High Cholesterol, Hypertension Respiratory History: No Pertinent History Endocrine Medical History: Diabetes Type II, Hypothyroidism Musculoskeletal History: Osteoarthritis GI Medical History: GERD History: No Pertinent History Psycho-Social History: No Pertinent History Female Reproductive Disorders: No Pertinent History Other Medical History: B TKA, L ankle fracture with hardware. 2-3 fainting spells, the last was 3 years ago. Nausea, SOB - Past Surgical History Past Surgical History: Yes Neuro Surgical History: No Pertinent History Cardiac: No Pertinent History Respiratory: No Pertinent History Gastrointestinal: No Pertinent History Genitourinary: No Pertinent History Musculoskeletal: Joint Replacement Female Surgical History: Other Other Surgical History: bilat knee replacement. 3x D&C. 3x breast biopsies - Social History Smoking Status: Never smoker Exposure to second hand smoke: No Drug Use: none Patient Lives Alone: Yes - Nursing Vital Signs Nursing Vital Signs: Initial Vital Signs Temperature 97.6 F 05/31/22 05:36 Pulse Rate 74 05/31/22 05:36 Respiratory Rate 16 05/31/22 05:36 Blood Pressure 164/78 05/31/22 05:36 O2 Sat by Pulse Oximetry 95 05/31/22 05:36 Pain Scale Pain Intensity 3 - Physical Exam General Appearance: mild distress Eyes, Ears, Nose, Throat Exam: moist mucous membranes Shoulder Exam: normal inspection, non-tender Elbow/Forearm Exam: normal inspection, non-tender Wrist Exam: bone tenderness, ecchymosis, limited ROM, soft tissue tenderness, swelling Neuro/Tendon Exam: normal sensation, normal motor functions, no evidence tendon injury Mental Status Exam: alert, oriented x 3, cooperative Skin Exam: ecchymosis (Bruising dorsum of the hand) SpO2 Interpretation: normal SpO2: 95 O2 Delivery: Room Air Procedures - Splinting Time of Procedure: 06:30 Location of Splint: Right, Wrist Type of Splint: Velcro Splint Splint Applied By: ED Nurse Pre-Proc Neuro Vasc Exam: normal Post-Proc Neuro Vasc Exam: neurovascular intact - Course Nursing assessment & vital signs reviewed: Yes - Radiology Exams Right Wrist X-ray Interpretation: Interpreted by me, Negative (There is osteopenia and some arthritic changes which makes interpretation difficult but we see no obvious fracture) Ordered Tests: Active Orders 24 hr Category Date Time Status FOREARM Stat Exams 05/31/22 05:40 Taken WRIST (MIN 3 VIEWS) Stat Exams 05/31/22 05:39 Taken - Progress Progress: pain not gone completely Progress Note: 05/31/22 06:32 Patient was x-rayed and placed in a Velcro splint. We do not see an obvious fracture at this time. Radiologist reviewed the films and if there is a fracture present she will be notified by telephone.She states that she feels that Tylenol will be adequate for pain relief. Medical Desision Making - Diagnostic Testing Radiological Interpretation: Interpreted by me - Risk of complications Low Risk: Low risk of morbidity from additional dx testing or treatment - Departure Departure Disposition: Home Clinical Impression: Sprain of right wrist Condition: Stable Critical Care Time: No Referrals: SAMPSON MORENO, [Primary Care Provider] - Follow up/PCP as directed Instructions: Wrist Sprain (DC)
[2022-05-31 06:38] VITALS: BP 135/90; PULSE 62; O2SAT 94
--- NOTE | 2022-05-31 08:54 | XRAY ---
Indication: Pain following fall. Comparison: None 2 view right forearm demonstrates osteopenia and diffuse scattered vascular calcifications. No acute fracture, dislocation, or radiopaque foreign body. Wrist reported separately.
--- NOTE | 2022-05-31 08:56 | XRAY ---
Indication: Pain following fall. Comparison: None 3 view right wrist demonstrates osteopenia, radial ulnar carpal degenerative joint space loss/chondrocalcinosis, minimal/mild 1st metacarpal multangular scaphoid degenerative changes, and diffuse scattered vascular calcifications. No other bony, articular, or soft tissue abnormalities.
== END 2022-05-31 06:46 | disposition home or self-care (01) ==
LOC: ED 05:28
DX: S63.501A Unspecified sprain of right wrist, initial encounter (principal); W19.XXXA Unspecified fall, initial encounter; E78.5 Hyperlipidemia, unspecified; I10 Essential (primary) hypertension; E11.9 Type 2 diabetes mellitus without complications; Z79.01 Long term (current) use of anticoagulants; Z79.84 Long term (current) use of oral hypoglycemic drugs; Z79.899 Other long term (current) drug therapy
CPT/HCPCS: 73090; 73110; 99282; L3908

== ENCOUNTER 2022-08-19 12:04 | Observation (INO) | payer MEDICARE, OTHER ==
[2022-08-19] MEDS ORDERED: Zofran 4 MG/2 ML VIAL IV ONE (12:18)
[2022-08-19] MEDS ORDERED: Sodium Chloride 0.9% 1000 ML 1,000 ML IV STA ×2 (12:18→14:28)
[2022-08-19] MEDS ORDERED: Zofran 4 MG/2 ML VIAL ONE (12:29)
[2022-08-19] MEDS ORDERED: Sodium Chloride 0.9% 1000 ML 1,000 ML ONE ×2 (12:29→14:29)
[2022-08-19 12:58] LABS: Absolute Neutrophil Ct (ANC) 7.69 x10^3/uL (1.4-6.9); BASOPHIL % 0.2 % (0.0-0.4); Basophil (Absolute #) 0.02 x10^3/uL (0-0.4); Eosinophil % 5.9 % (0.00-5.0); Eosinophil (Absolute #) 0.69 x10^3/uL (0-0.5); Hematocrit 40.2 % (35-47); Hemoglobin 12.8 g/dL (12.0-16.0); IMMATURE GRAN # 0.05 x10^3u/L (0.00-0.03); IMMATURE GRAN % 0.4 % (0.00-0.4); Lymphocyte (Absolute #) 2.11 x10^3/uL (1.0-4.6); Lymphocytes % 18.1 % (24.0-44.0); Mean Corpuscular Hemoglobin 33.4 pg (26-32); Mean Corpuscular Hgb Concent. 31.8 g/dL (32-36); Mean Platelet Volume 10.3 fL (7.5-11.0); Monocyte (Absolute #) 1.11 x10^3/uL (0.0-1.3); Monocytes % 9.5 % (0.0-12.0); Neutrophil % 65.9 % (36.0-66.0); Platelet Count 163 x10^3/uL (150-450); Red Blood Count 3.83 x10^6/uL (4.1-5.4); Red Cell Distribution Width 13.1 % (11.5-14.0); White Blood Count 11.7 x10^3/uL (4.0-10.5)
[2022-08-19 13:19] LABS: ALBUMIN 3.5 g/dL (3.5-5.0); BILIRUBIN,TOTAL 0.8 mg/dL (0.2-1.3); Calcium 9.1 mg/dL (8.4-10.2); EST GLOMERULAR FILTRATION RATE 56.1 ML/MIN; INR 1.1 (0.8-3.0); PROTIME 11.9 SECONDS (9.4-12.5); Total Protein 6.4 g/dL (6.3-8.2)
[2022-08-19 13:35] LABS: INFLUENZA A NEGATIVE (NEGATIVE); INFLUENZA B NEGATIVE (NEGATIVE); RESPIRATORY SYNCTIAL VIRUS NEGATIVE (NEGATIVE); SARS-CoV-2 Xpert Express NEGATIVE (NEGATIVE)
--- NOTE | 2022-08-19 14:24 | ERPHSYRPT ---
- History of Present Illness Time Seen by Provider: 08/19/22 12:20 Historian: patient Exam Limitations: no limitations Patient Subjective Stated Complaint: Pt reports she has been experiencing nausea and vomiting since 08/15/22. Denies any fevers. Has taken immodium to help with the diarrhea. Triage Nursing Assessment: Pt alert and oriented x3. No apparent respiratory distress. Wheeled to ED cot and transfered to cot with assist x1, uses a walker at home. Skin pale/dry/warm. Active bowel sounds in all four quads. Abdomen soft/flat/tender with palpation. Physician History: Patient is an 86-year-old white female who presents with a 4-day history of nausea vomiting and diarrhea. She has increased stools in the past 2 days. She is weak and cannot eat. Her blood pressure has been low even below 90 at home. She has had no fever chills or sweats she has had no blood in her stools or emesis she did have a previous history of constipation. She has used some Imodium for diarrhea recently. Family member with her says she has frequent episodes of gastroenteritis. Timing/Duration: day(s) (4) Activities at Onset: none Severity of Pain-Max: mild Severity of Pain-Current: mild Modifying Factors: Improves With: vomiting Associated Symptoms: diarrhea Previous symptoms: same symptoms as today Allergies/Adverse Reactions: penicillin G Allergy (Verified 08/19/22 12:21) acetaminophen [From [place]] Adverse Reaction (Verified 08/19/22 12:21) hydrocodone bitartrate [From [place]] Adverse Reaction (Verified 08/19/22 12:21) lisinopril Adverse Reaction (Verified 08/19/22 12:21) procainamide HCl [From [place]] Adverse Reaction (Verified 08/19/22 12:21) PRESANTINE Allergy (Uncoded 08/19/22 12:21) Home Medications: Aspirin 81 mg PO DAILY 04/04/13 [History] Fenofibrate Nanocrystallized [Tricor] 160 mg PO DAILY 04/04/13 [History] Glipizide 2.5 mg [Glucotrol Xl 2.5 MG] 2.5 mg PO DAILY 04/04/13 [History] Isosorbide Mononitrate 30 mg [Imdur 30 MG] 60 mg PO DAILY 04/04/13 [History] Levothyroxine Sodium 112 Mcg [Synthroid 112 Mcg] 88 mg PO DAILY 04/04/13 [History] Metoprolol Tartrate 25 mg PO BID 04/04/13 [History] Omeprazole 20 MG [Prilosec 20 mg] 20 mg PO DAILY 04/04/13 [History] Amino Acids/Mv,Fe,Other Min [Ocuvite Extra Tablet] 1 each PO DAILY 09/14/16 [History] Apixaban [Eliquis] 1 tab PO BID 07/26/20 [History] Atorvastatin Calcium [Lipitor 40Mg] 1 tab PO HS 07/26/20 [History] Olmesartan Medoxomil [Benicar] 1 tab PO DAILY 07/26/20 [History] PARoxetine HCL [Paxil] 1 tab PO DAILY 07/26/20 [History] Hx Tetanus, Diphtheria Vaccination/Date Given: No Hx Influenza Vaccination/Date Given: Yes Hx Pneumococcal Vaccination/Date Given: Yes Travel Risk - International Travel Have you traveled outside of the country in past 3 weeks: No - Coronavirus Screening Are you exhibiting any of the following symptoms?: Yes Symptoms: Vomiting/Diarrhea Close contact with a COVID-19 positive Pt in past 14-21 Days: No - Vaccine Status Have you recieved a Covid-19 vaccination: Yes 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: [employer] - Vaccination Dates Date of 2cond Vaccination (if applicable): 05/30/2020 - Review of Systems Constitutional: No Fever, No Chills Eyes: No Symptoms Ears, Nose, & Throat: No Symptoms Respiratory: No Cough, No Dyspnea Cardiac: No Chest Pain, No Edema, No Syncope Abdominal/Gastrointestinal: Nausea, Vomiting, Diarrhea, No Abdominal Pain Genitourinary Symptoms: No Dysuria Musculoskeletal: No Back Pain, No Neck Pain Skin: No Rash Neurological: No Dizziness, No Focal Weakness, No Sensory Changes Psychological: No Symptoms Endocrine: No Symptoms All Other Systems: Reviewed and Negative - Past Medical History Pertinent Past Medical History: Yes Neurological History: No Pertinent History, TIA ENT History: No Pertinent History, Cataracts Cardiac History: High Cholesterol, Hypertension Respiratory History: No Pertinent History Endocrine Medical History: Diabetes Type II, Hypothyroidism Musculoskeletal History: Osteoarthritis GI Medical History: GERD History: No Pertinent History Psycho-Social History: No Pertinent History Female Reproductive Disorders: No Pertinent History Other Medical History: B TKA, L ankle fracture with hardware. 2-3 fainting spells, the last was 3 years ago. Nausea, SOB - Past Surgical History Past Surgical History: Yes Neuro Surgical History: No Pertinent History Cardiac: No Pertinent History Respiratory: No Pertinent History Gastrointestinal: No Pertinent History Genitourinary: No Pertinent History Musculoskeletal: Joint Replacement Female Surgical History: Other Other Surgical History: bilat knee replacement. 3x D&C. 3x breast biopsies - Social History Smoking Status: Never smoker Exposure to second hand smoke: No Drug Use: none Patient Lives Alone: Yes - Nursing Vital Signs Nursing Vital Signs: Initial Vital Signs Temperature 97.5 F 08/19/22 12:12 Pulse Rate 89 08/19/22 12:12 Respiratory Rate 17 08/19/22 12:12 Blood Pressure 109/71 08/19/22 12:12 O2 Sat by Pulse Oximetry 95 08/19/22 12:12 Pain Scale Pain Intensity 0 - Physical Exam General Appearance: mild distress Eye Exam: PERRL/EOMI, eyes nml inspection Ears, Nose, Throat Exam: normal ENT inspection, pharynx normal, moist mucous membranes Neck Exam: normal inspection, non-tender, supple, full range of motion Respiratory Exam: normal breath sounds, lungs clear, No respiratory distress Cardiovascular Exam: regular rate/rhythm, normal heart sounds Gastrointestinal/Abdomen Exam: soft Back Exam: normal inspection, normal range of motion, No CVA tenderness, No vertebral tenderness Extremity Exam: normal inspection, normal range of motion, pelvis stable Neurologic Exam: alert, oriented x 3, cooperative, normal mood/affect, nml cerebellar function, sensation nml, No motor deficits Skin Exam: normal color, warm, dry SpO2 Interpretation: normal SpO2: 95 O2 Delivery: Room Air - Course Nursing assessment & vital signs reviewed: Yes EKG Interpreted by Me: RATE (86), Sinus Rhythm, NORMAL AXIS, NORMAL INTERVALS, Non-specific ST Changes - CT Exams Abdomen/Pelvis CT Interpretation: Other (CT scan showed mild enteritis and enlarging right nonobstructing renal stone.) Ordered Tests: Active Orders 24 hr Category Date Time Status EKG-ER Only STAT Care 08/19/22 12:21 Active IV Insertion STAT Care 08/19/22 12:18 Active ABDOMEN AND PELVIS W CONTRAST [CT] Stat Exams 08/19/22 12:19 Completed AMYLASE Stat Lab 08/19/22 12:58 Completed BLOOD CULTURE Stat Lab 08/19/22 12:58 Received CBC W DIFF Stat Lab 08/19/22 12:58 Completed CMP Stat Lab 08/19/22 12:58 Completed LIPASE Stat Lab 08/19/22 12:58 Completed Lactic Acid Stat Lab 08/19/22 12:18 Completed Lactic Acid Stat Lab 08/19/22 14:52 Received PROTIME WITH INR Stat Lab 08/19/22 12:58 Completed TROPONIN Q4H Lab 08/19/22 12:58 Completed TROPONIN Q4H Lab 08/19/22 16:30 Ordered TROPONIN Q4H Lab 08/19/22 20:30 Ordered UA W/RFX UR CULTURE Stat Lab 08/19/22 14:03 Completed Medication Summary Generic Name Dose Route Start Last Admin Trade Name Freq PRN Reason Stop Dose Admin Sodium Chloride 1,000 mls @ 999 mls/hr 08/19/22 14:28 08/19/22 14:32 Sodium Chloride 0.9% 1000 Ml IV 08/19/22 15:28 999 mls/hr .Q1H1M STA Administration Discontinued Medications Generic Name Dose Route Start Last Admin Trade Name Freq PRN Reason Stop Dose Admin Sodium Chloride 1,000 mls @ 999 mls/hr 08/19/22 12:18 08/19/22 14:08 Sodium Chloride 0.9% 1000 Ml IV 08/19/22 13:18 Infused .Q1H1M STA Infusion Sodium Chloride Confirm 08/19/22 12:29 Sodium Chloride 0.9% 1000 Ml Administered 08/19/22 12:30 Dose 1,000 mls @ ud .ROUTE .STK-MED ONE Sodium Chloride Confirm 08/19/22 14:29 Sodium Chloride 0.9% 1000 Ml Administered 08/19/22 14:30 Dose 1,000 mls @ ud .ROUTE .STK-MED ONE Ondansetron HCl 4 mg 08/19/22 12:18 08/19/22 12:31 Ondansetron Hcl 4 Mg/2 Ml Vial IV 08/19/22 12:19 4 mg STAT ONE Administration Ondansetron HCl Confirm 08/19/22 12:29 Ondansetron Hcl 4 Mg/2 Ml Vial Administered 08/19/22 12:30 Dose 4 mg .ROUTE .STK-MED ONE Lab/Rad Data: Laboratory Result Diagrams 08/19/22 12:58 08/19/22 12:58 Laboratory Results 08/19/22 08/19/22 08/19/22 Range/Units 14:03 12:58 12:58 WBC (4.0-10.5) x10^3/uL RBC (4.1-5.4) x10^6/uL Hgb (12.0-16.0) g/dL Hct (35-47) % MCV (78-100) fL MCH (26-32) pg MCHC (32-36) g/dL RDW (11.5-14.0) % Plt Count (150-450) x10^3/uL MPV (7.5-11.0) fL Gran % (36.0-66.0) % Immature Gran % (Auto) (0.00-0.4) % Nucleat RBC Rel Count (0.00-0.1) % Eos # (Auto) (0-0.5) x10^3/uL Immature Gran # (Auto) (0.00-0.03) x10^3u/L Absolute Lymphs (auto) (1.0-4.6) x10^3/uL Absolute Monos (auto) (0.0-1.3) x10^3/uL Absolute Nucleated RBC (0.00-0.01) x10^3u/L Lymphocytes % (24.0-44.0) % Monocytes % (0.0-12.0) % Eosinophils % (0.00-5.0) % Basophils % (0.0-0.4) % Absolute Granulocytes (1.4-6.9) x10^3/uL Basophils # (0-0.4) x10^3/uL PT (9.4-12.5) SECONDS INR (0.8-3.0) Sodium (137-145) mmol/L Potassium (3.5-5.1) mmol/L Chloride (98-107) mmol/L Carbon Dioxide (22-30) mmol/L Anion Gap (5-15) MEQ/L BUN (7-17) mg/dL Creatinine (0.52-1.04) mg/dL Estimated GFR ML/MIN Glucose (74-106) mg/dL Lactic Acid (0.4-2.0) Calcium (8.4-10.2) mg/dL Total Bilirubin (0.2-1.3) mg/dL AST (14-36) U/L ALT (0-35) U/L Alkaline Phosphatase (38-126) U/L Troponin I 0.016 (0.000-0.034) ng/mL Serum Total Protein (6.3-8.2) g/dL Albumin (3.5-5.0) g/dL Amylase (30-110) U/L Lipase (23-300) U/L Urine Color Yellow (Yellow) Urine Appearance Clear (Clear) Urine pH 5.5 (4.6-8.0) Ur Specific [place] <=1.005 (1.005-1.030) Urine Protein Negative (Negative) Urine Glucose (UA) Negative (Negative) mg/dL Urine Ketones Negative (Negative) Urine Blood Small A (Negative) Urine Nitrite Negative (Negative) Urine Bilirubin Negative (Negative) Urine Urobilinogen 0.2 (0.2) mg/dL Ur Leukocyte Esterase Negative (Negative) U Hyaline Cast (Auto) NONE SEEN (0-2) /LPF Urine Microscopic RBC 0-2 (0-5) /HPF Urine Microscopic WBC 0-2 (0-5) /HPF Ur Epithelial Cells None Seen (None Seen) /HPF Urine Bacteria None Seen (None Seen) /HPF Urine Culture Reflexed NO (NO) Influenza Type A Ag NEGATIVE (NEGATIVE) Influenza Type B Ag NEGATIVE (NEGATIVE) RSV (PCR) NEGATIVE (NEGATIVE) SARS-CoV-2 (PCR) NEGATIVE (NEGATIVE) 08/19/22 08/19/22 08/19/22 Range/Units 12:58 12:58 12:58 WBC 11.7 H (4.0-10.5) x10^3/uL RBC 3.83 L (4.1-5.4) x10^6/uL Hgb 12.8 (12.0-16.0) g/dL Hct 40.2 (35-47) % MCV 105.0 H (78-100) fL MCH 33.4 H (26-32) pg MCHC 31.8 L (32-36) g/dL RDW 13.1 (11.5-14.0) % Plt Count 163 (150-450) x10^3/uL MPV 10.3 (7.5-11.0) fL Gran % 65.9 (36.0-66.0) % Immature Gran % (Auto) 0.4 (0.00-0.4) % Nucleat RBC Rel Count 0.0 (0.00-0.1) % Eos # (Auto) 0.69 H (0-0.5) x10^3/uL Immature Gran # (Auto) 0.05 H (0.00-0.03) x10^3u/L Absolute Lymphs (auto) 2.11 (1.0-4.6) x10^3/uL Absolute Monos (auto) 1.11 (0.0-1.3) x10^3/uL Absolute Nucleated RBC 0.00 (0.00-0.01) x10^3u/L Lymphocytes % 18.1 L (24.0-44.0) % Monocytes % 9.5 (0.0-12.0) % Eosinophils % 5.9 H (0.00-5.0) % Basophils % 0.2 (0.0-0.4) % Absolute Granulocytes 7.69 H (1.4-6.9) x10^3/uL Basophils # 0.02 (0-0.4) x10^3/uL PT 11.9 (9.4-12.5) SECONDS INR 1.10 (0.8-3.0) Sodium 139 (137-145) mmol/L Potassium 4.0 (3.5-5.1) mmol/L Chloride 104 (98-107) mmol/L Carbon Dioxide 24 (22-30) mmol/L Anion Gap 15.0 (5-15) MEQ/L BUN 28 H (7-17) mg/dL Creatinine 1.00 (0.52-1.04) mg/dL Estimated GFR 56.1 ML/MIN Glucose 147 H (74-106) mg/dL Lactic Acid (0.4-2.0) Calcium 9.1 (8.4-10.2) mg/dL Total Bilirubin 0.80 (0.2-1.3) mg/dL AST 21 (14-36) U/L ALT 16 (0-35) U/L Alkaline Phosphatase 91 (38-126) U/L Troponin I (0.000-0.034) ng/mL Serum Total Protein 6.4 (6.3-8.2) g/dL Albumin 3.5 (3.5-5.0) g/dL Amylase 58 (30-110) U/L Lipase 54 (23-300) U/L Urine Color (Yellow) Urine Appearance (Clear) Urine pH (4.6-8.0) Ur Specific [place] (1.005-1.030) Urine Protein (Negative) Urine Glucose (UA) (Negative) mg/dL Urine Ketones (Negative) Urine Blood (Negative) Urine Nitrite (Negative) Urine Bilirubin (Negative) Urine Urobilinogen (0.2) mg/dL Ur Leukocyte Esterase (Negative) U Hyaline Cast (Auto) (0-2) /LPF Urine Microscopic RBC (0-5) /HPF Urine Microscopic WBC (0-5) /HPF Ur Epithelial Cells (None Seen) /HPF Urine Bacteria (None Seen) /HPF Urine Culture Reflexed (NO) Influenza Type A Ag (NEGATIVE) Influenza Type B Ag (NEGATIVE) RSV (PCR) (NEGATIVE) SARS-CoV-2 (PCR) (NEGATIVE) 08/19/22 Range/Units 12:18 WBC (4.0-10.5) x10^3/uL RBC (4.1-5.4) x10^6/uL Hgb (12.0-16.0) g/dL Hct (35-47) % MCV (78-100) fL MCH (26-32) pg MCHC (32-36) g/dL RDW (11.5-14.0) % Plt Count (150-450) x10^3/uL MPV (7.5-11.0) fL Gran % (36.0-66.0) % Immature Gran % (Auto) (0.00-0.4) % Nucleat RBC Rel Count (0.00-0.1) % Eos # (Auto) (0-0.5) x10^3/uL Immature Gran # (Auto) (0.00-0.03) x10^3u/L Absolute Lymphs (auto) (1.0-4.6) x10^3/uL Absolute Monos (auto) (0.0-1.3) x10^3/uL Absolute Nucleated RBC (0.00-0.01) x10^3u/L Lymphocytes % (24.0-44.0) % Monocytes % (0.0-12.0) % Eosinophils % (0.00-5.0) % Basophils % (0.0-0.4) % Absolute Granulocytes (1.4-6.9) x10^3/uL Basophils # (0-0.4) x10^3/uL PT (9.4-12.5) SECONDS INR (0.8-3.0) Sodium (137-145) mmol/L Potassium (3.5-5.1) mmol/L Chloride (98-107) mmol/L Carbon Dioxide (22-30) mmol/L Anion Gap (5-15) MEQ/L BUN (7-17) mg/dL Creatinine (0.52-1.04) mg/dL Estimated GFR ML/MIN Glucose (74-106) mg/dL Lactic Acid 2.2 H (0.4-2.0) Calcium (8.4-10.2) mg/dL Total Bilirubin (0.2-1.3) mg/dL AST (14-36) U/L ALT (0-35) U/L Alkaline Phosphatase (38-126) U/L Troponin I (0.000-0.034) ng/mL Serum Total Protein (6.3-8.2) g/dL Albumin (3.5-5.0) g/dL Amylase (30-110) U/L Lipase (23-300) U/L Urine Color (Yellow) Urine Appearance (Clear) Urine pH (4.6-8.0) Ur Specific [place] (1.005-1.030) Urine Protein (Negative) Urine Glucose (UA) (Negative) mg/dL Urine Ketones (Negative) Urine Blood (Negative) Urine Nitrite (Negative) Urine Bilirubin (Negative) Urine Urobilinogen (0.2) mg/dL Ur Leukocyte Esterase (Negative) U Hyaline Cast (Auto) (0-2) /LPF Urine Microscopic RBC (0-5) /HPF Urine Microscopic WBC (0-5) /HPF Ur Epithelial Cells (None Seen) /HPF Urine Bacteria (None Seen) /HPF Urine Culture Reflexed (NO) Influenza Type A Ag (NEGATIVE) Influenza Type B Ag (NEGATIVE) RSV (PCR) (NEGATIVE) SARS-CoV-2 (PCR) (NEGATIVE) - Progress Progress: improved Progress Note: 08/19/22 15:15 Patient is admitted to the hospital for treatment of dehydration this was discussed with Dr. Armenta. Discussed with .: Eliot Will see patient in: hospital (observation) Counseled pt/family regarding: lab results, diagnosis, rad results Medical Desision Making - Independent Historian Additional History obtained from: Family - Discussion of managment Care discussed with:: PCP Agreed on:: Treatment plan, decision to admit Will see patient: in hospital - Diagnostic Testing Diagnostic test were ordered, analyzed, and reviewed by me: Yes Radiological Interpretation: Reviewed by me - Risk of complications The pt has a mod risk of morbidity or mortality based on: Need for prescription drug management - Departure Departure Disposition: Observation Clinical Impression: Gastroenteritis, Dehydration Condition: Stable Critical Care Time: No Referrals: SAMPSON MORENO DO [Primary Care Provider] - Follow up/PCP as directed
--- NOTE | 2022-08-19 14:50 | XRAY ---
Indication: Nausea, vomiting, and diarrhea. Multiple contiguous axial images obtained through the abdomen and pelvis using 80 cc Isovue 370 contrast. Comparison: October 17, 2020 Lung bases again demonstrate mild bilateral peripheral fibrosis/scarring. Heart not enlarged. Stable small hiatal hernia. Noncontrasted stomach and bowel loops nonobstructed again with normal appendix. Small bowel loops are now mildly fluid distended up to 2 cm with fluid leveling, ileus versus enteritis. Again minimal sigmoid diverticulosis without diverticulitis and continued enlarging nonobstructing 1.5 cm right lower renal calculus. Again incidental cholecystectomy. No free fluid/air. Remaining liver, pancreas, spleen, adrenal glands, kidneys, ureters, bladder, and uterus are unremarkable. There remains extensive scattered vascular calcifications. No AAA or pathologic retroperitoneal lymphadenopathy. Osseous structures intact again with osteopenia, mild/moderate multilevel thoracolumbar degenerative spondylosis, and grade 1 anterolisthesis of L4 on L5 on S1. Impression: 1. New CT findings favor mild enteritis. 2. Enlarging nonobstructing right renal calculus. 3. Chronic findings including pulmonary fibrosis/scarring, hiatal hernia, sigmoid diverticulosis, arteriosclerotic disease, and chronic bony findings.
[2022-08-19 14:53] LABS: Appearance Clear (Clear); Bacteria None Seen /HPF (None Seen); Bilirubin Negative (Negative); Epithelial Cells None Seen /HPF (None Seen); Glucose, Urine Negative (Negative); Hyaline Casts NONE SEEN /LPF (0-2); Ketones Negative (Negative); Leukocyte Esterase Negative (Negative); Nitrite Negative (Negative); Ph 5.5 (4.6-8.0); Protein,Urine Dip Negative (Negative); RBC 0-2 /HPF (0-5); Specific Gravity <=1.005 (1.005-1.030); Urobilinogen 0.2 mg/dL (0.2); WBC 0-2 /HPF (0-5)
[2022-08-19 14:54] LABS: ADD URINE CULTURE? NO (NO); Blood Small (Negative)
[2022-08-19] MEDS ORDERED: HUMALOG SQ PRN (15:20)
[2022-08-19] MEDS ORDERED: Zofran 4 MG/2 ML VIAL IV PRN (15:20)
[2022-08-19] MEDS: Sodium Chloride 0.9% 1000 ML 1,000 ML IV SCH ×2 (17:10→23:16)
[2022-08-19] MEDS ORDERED: Docusate Sodium 100 MG PO PRN (17:15)
[2022-08-19] MEDS: FLAGYL 500 MG IVPB 500 MG/100 ML BAG IV SCH ×2 (17:45→23:16)
[2022-08-19] MEDS: ECOTRIN 81 MG PO SCH (21:45)
[2022-08-19] MEDS: ELIQUIS 2.5 MG TABLET PO SCH (21:45)
[2022-08-19] MEDS: Acidophilus TABLET PO SCH (21:45)
[2022-08-19] MEDS: ZOCOR 20MG PO SCH (21:45)
[2022-08-19] MEDS: Vitamin B-12 500 MCG PO SCH (21:45)
[2022-08-19] MEDS: Ocuvite Tablet PO SCH (21:45)
[2022-08-19] MEDS: Lopressor 50 MG PO SCH (21:46)
[2022-08-19] MEDS ORDERED: NON-FORMULARY ITEM (Aspirin [Aspirin] 81 MG Tablet) PO SCH (22:00)
[2022-08-19] MEDS ORDERED: NON-FORMULARY ITEM (L.Acidoph,Paracasei, B.Lactis [Probiotic] 1 EACH Capsule) PO SCH (22:00)
[2022-08-19] MEDS ORDERED: AMINO ACIDS PO SCH (22:00)
[2022-08-19] MEDS ORDERED: NON-FORMULARY ITEM (Cyanocobalamin (Vitamin B-12) [Vitamin B-12] 1,000 MCG Capsule) PO SCH (22:00)
[2022-08-19] MEDS ORDERED: NON-FORMULARY ITEM (Apixaban [Eliquis] 5 MG Tablet) PO SCH (22:00)
[2022-08-19] MEDS ORDERED: MV FE OTHER MIN PO SCH (22:00)
[2022-08-20] MEDS: FLAGYL 500 MG IVPB 500 MG/100 ML BAG IV SCH ×4 (05:21→23:43)
[2022-08-20 05:51] LABS: BASOPHIL % 0.3 % (0.0-0.4); Basophil (Absolute #) 0.02 x10^3/uL (0-0.4); Eosinophil % 9.7 % (0.00-5.0); Eosinophil (Absolute #) 0.71 x10^3/uL (0-0.5); Hemoglobin 10.8 g/dL (12.0-16.0); IMMATURE GRAN # 0.02 x10^3u/L (0.00-0.03); IMMATURE GRAN % 0.3 % (0.00-0.4); Lymphocyte (Absolute #) 2.15 x10^3/uL (1.0-4.6); Lymphocytes % 29.4 % (24.0-44.0); Mean Cell Volume 104.3 fL (78-100); Mean Corpuscular Hemoglobin 33.1 pg (26-32); Mean Corpuscular Hgb Concent. 31.8 g/dL (32-36); Mean Platelet Volume 10.3 fL (7.5-11.0); Monocyte (Absolute #) 0.91 x10^3/uL (0.0-1.3); Monocytes % 12.4 % (0.0-12.0); Neutrophil % 47.9 % (36.0-66.0); Platelet Count 138 x10^3/uL (150-450); Red Blood Count 3.26 x10^6/uL (4.1-5.4); Red Cell Distribution Width 13.2 % (11.5-14.0); White Blood Count 7.3 x10^3/uL (4.0-10.5)
[2022-08-20] MEDS: Sodium Chloride 0.9% 1000 ML 1,000 ML IV SCH ×2 (06:06→13:15)
[2022-08-20 06:08] LABS: ALBUMIN 2.7 g/dL (3.5-5.0); ALKALINE PHOSPHATASE 66 U/L (38-126); ANION GAP 12.7 MEQ/L (5-15); BLOOD UREA NITROGEN 17 mg/dL (7-17); CHLORIDE 112 mmol/L (98-107); Carbon Dioxide 20 mmol/L (22-30); Creatinine 1 0.86 mg/dL (0.52-1.04); EST GLOMERULAR FILTRATION RATE > 60.0 ML/MIN; Glucose 75 mg/dL (74-106); Potassium 3.6 mmol/L (3.5-5.1); SGOT/AST 18 U/L (14-36); SGPT/ALT 12 U/L (0-35); SODIUM 140 mmol/L (137-145); Total Protein 5.3 g/dL (6.3-8.2)
[2022-08-20] MEDS ORDERED: SYNTHROID 112 MCG PO SCH (10:00)
[2022-08-20] MEDS ORDERED: LIPITOR 40MG PO SCH (10:00)
[2022-08-20] MEDS ORDERED: NON-FORMULARY ITEM (Cholecalciferol (Vitamin D3) [Vitamin D3] 10 MCG Capsule) PO SCH (10:00)
[2022-08-20] MEDS ORDERED: NON-FORMULARY ITEM (Omeprazole 20 Mg [Prilosec 20 Mg] 20 MG Capsule.Dr) PO SCH (10:00)
[2022-08-20] MEDS ORDERED: Protonix 40MG Tablet PO SCH (10:00)
[2022-08-20] MEDS ORDERED: OLMESARTAN MEDOXOMIL 40 MG PO SCH (10:00)
[2022-08-20] MEDS: Imdur 30 MG PO SCH (10:17)
[2022-08-20] MEDS: VITAMIN D PO SCH (10:17)
[2022-08-20] MEDS: Benicar 20 MG PO SCH (10:17)
[2022-08-20] MEDS: Protonix 40MG Tablet PO SCH (10:17)
[2022-08-20] MEDS: SYNTHROID 88 MCG PO SCH (10:18)
[2022-08-20] MEDS: ELIQUIS 2.5 MG TABLET PO SCH ×2 (10:18→22:18)
[2022-08-20] MEDS: PROZAC 10 MG PO SCH (10:18)
--- NOTE | 2022-08-20 12:22 | PCM.HP ---
History of Present Illness - Chief Complaint Chief Complaint: GASTROENTERITIS History of Present Illness: is a 86 year old female of mine who presented to ER with weakness and 3 days of N/V/D.She had taken 2 Imodium before coming to ER and has not had further diarrhea. Is on Clear liquids overnight and is hungry now. CT abd/pelvis positive for enteritis.Is ressponding to IV flagyl and hydration. PMHx includes HTN,HLD,DM2,hypothyroid,OA,GERD. Patient is admitted for IV hydration and IV Flagyl for tx of enteritis. She lives alone with family close by.Advancing diet as tolerated and home when tolerating solid foods. - Review of Systems Constitutional: Lethargy Eyes: No Symptoms Ears, Nose, & Throat: No Symptoms Respiratory: No Symptoms Cardiac: No Symptoms Abdominal/Gastrointestinal: Abdominal Pain, Nausea, Vomiting, Diarrhea Genitourinary Symptoms: No Symptoms Musculoskeletal: Arthralgias Skin: No Symptoms Neurological: No Symptoms Psychological: No Symptoms Endocrine: No Symptoms Hematologic/Lymphatic: No Symptoms Immunological/Allergic: No Symptoms Medications & Allergies Home Medications: Home Medication List Aspirin 81 mg PO HS 04/04/13 [History Confirmed 08/19/22] Glipizide 2.5 mg [Glucotrol Xl 2.5 MG] 2.5 mg PO DAILY 04/04/13 [History Confirmed 08/19/22] Isosorbide Mononitrate 30 mg [Imdur 30 MG] 60 mg PO DAILY 04/04/13 [History Confirmed 08/19/22] Levothyroxine Sodium 112 Mcg [Synthroid 112 Mcg] 88 mcg PO DAILY 04/04/13 [History Confirmed 08/19/22] Metoprolol Tartrate 25 mg PO HS 04/04/13 [History Confirmed 08/19/22] Omeprazole 20 MG [Prilosec 20 mg] 20 mg PO DAILY 04/04/13 [History Confirmed 08/19/22] Amino Acids/Mv,Fe,Other Min [Ocuvite Extra Tablet] 1 each PO HS 09/14/16 [History Confirmed 08/19/22] Apixaban [Eliquis] 2.5 mg PO BID 07/26/20 [History Confirmed 08/19/22] Atorvastatin Calcium [Lipitor 40Mg] 1 tab PO DAILY 07/26/20 [History Confirmed 08/19/22] Olmesartan Medoxomil [Benicar] 20 mg PO DAILY 07/26/20 [History Confirmed 08/19/22] Cholecalciferol (Vitamin D3) [Vitamin D3] 2,000 unit PO DAILY 08/19/22 [History Confirmed 08/19/22] Cyanocobalamin (Vitamin B-12) [Vitamin B-12] 1,000 mcg PO HS 08/19/22 [History Confirmed 08/19/22] Docusate Sodium [Colace] 1 tab PO DAILY 08/19/22 [History Confirmed 08/19/22] Fluoxetine HCl 10 mg [Prozac 10 mg] 10 mg PO DAILY 08/19/22 [History Confirmed 08/19/22] L.acidoph,Paracasei, B.lactis [Probiotic] 1 cap PO HS 08/19/22 [History Confirmed 08/19/22] metroNIDAZOLE [Metronidazole] 250 mg PO TIDWM 3 Days #9 tablet 08/21/22 [Rx] Allergies/Adverse Reactions: Allergies Allergy/AdvReac Type Severity Reaction Status Date / Time penicillin G Allergy Verified 08/19/22 12:21 acetaminophen [From [place]] AdvReac Verified 08/19/22 12:21 hydrocodone bitartrate AdvReac Verified 08/19/22 12:21 [From [place]] lisinopril AdvReac Verified 08/19/22 12:21 procainamide HCl AdvReac Verified 08/19/22 12:21 [From [place]] PRESANTINE Allergy Uncoded 08/19/22 12:21 - Past Medical History Past Medical History: Yes Neurological History: No Pertinent History, TIA ENT History: No Pertinent History, Cataracts Cardiac History: High Cholesterol, Hypertension Respiratory History: No Pertinent History Endocrine Medical History: Diabetes Type II, Hypothyroidism Musculoskelatal History: Osteoarthritis GI Medical History: GERD History: No Pertinent History Pyscho-Social History: No Pertinent History Reproductive Disorders: No Pertinent History Comment: B TKA, L ankle fracture with hardware. 2-3 fainting spells, the last was 3 years ago. Nausea, SOB - Female History Are you now?: No - Past Surgical History Past Surgical History: Yes Neuro Surgical History: No Pertinent History Cardiac History: No Pertinent History Respiratory Surgery: No Pertinent History GI Surgical History: Cholecystectomy Genitourinary Surgical Hx: No Pertinent History Musculskeletal Surgical Hx: Joint Replacement Female Surgical History: Other Other Surgical History: bilat knee replacement. 3x D&C. 3x breast biopsies. ARTERECTOMY- CAROTID - Social History Smoking Status: Never smoker Exposure to second hand smoke: No Alcohol: None Drug Use: none - Physical Exam Vital Signs: Vital Signs - 24 hr Temp Pulse Resp BP Pulse Ox 08/20/22 11:31 98.5 F 63 18 123/63 96 08/20/22 06:42 98.0 F 63 16 121/60 91 L 08/20/22 04:00 97.8 F 68 20 135/63 92 L 08/20/22 00:00 98.7 F 60 16 110/53 94 L 08/19/22 19:20 98.7 F 75 17 139/67 93 L 08/19/22 16:03 98.0 F 89 16 163/69 92 L 08/19/22 15:51 90 18 95 08/19/22 15:19 95 08/19/22 13:20 108/60 General Appearance: no apparent distress Neurologic Exam: alert, oriented x 3, cooperative, normal mood/affect Eye Exam: eyes nml inspection Ears, Nose, Throat Exam: normal ENT inspection Neck Exam: normal inspection Respiratory Exam: normal breath sounds Cardiovascular Exam: regular rate/rhythm Gastrointestinal/Abdomen Exam: soft, normal bowel sounds, tenderness (periumbilical) Pelvic Exam: not done Rectal Exam: not done Back Exam: normal inspection Extremity Exam: normal inspection Skin Exam: warm, dry, pale Results - Labs Lab/Micro Results: Lab Results-Last 24 Hours 08/19/22 08/19/22 08/19/22 Range/Units 12:18 12:58 12:58 WBC 11.7 H (4.0-10.5) x10^3/uL RBC 3.83 L (4.1-5.4) x10^6/uL Hgb 12.8 (12.0-16.0) g/dL Hct 40.2 (35-47) % MCV 105.0 H (78-100) fL MCH 33.4 H (26-32) pg MCHC 31.8 L (32-36) g/dL RDW 13.1 (11.5-14.0) % Plt Count 163 (150-450) x10^3/uL MPV 10.3 (7.5-11.0) fL Gran % 65.9 (36.0-66.0) % Immature Gran % (Auto) 0.4 (0.00-0.4) % Nucleat RBC Rel Count 0.0 (0.00-0.1) % Eos # (Auto) 0.69 H (0-0.5) x10^3/uL Immature Gran # (Auto) 0.05 H (0.00-0.03) x10^3u/L Absolute Lymphs (auto) 2.11 (1.0-4.6) x10^3/uL Absolute Monos (auto) 1.11 (0.0-1.3) x10^3/uL Absolute Nucleated RBC 0.00 (0.00-0.01) x10^3u/L Lymphocytes % 18.1 L (24.0-44.0) % Monocytes % 9.5 (0.0-12.0) % Eosinophils % 5.9 H (0.00-5.0) % Basophils % 0.2 (0.0-0.4) % Absolute Granulocytes 7.69 H (1.4-6.9) x10^3/uL Basophils # 0.02 (0-0.4) x10^3/uL PT (9.4-12.5) SECONDS INR (0.8-3.0) Sodium 139 (137-145) mmol/L Potassium 4.0 (3.5-5.1) mmol/L Chloride 104 (98-107) mmol/L Carbon Dioxide 24 (22-30) mmol/L Anion Gap 15.0 (5-15) MEQ/L BUN 28 H (7-17) mg/dL Creatinine 1.00 (0.52-1.04) mg/dL Estimated GFR 56.1 ML/MIN Glucose 147 H (74-106) mg/dL POC Glucometer (74 to 106) mg/dL Lactic Acid 2.2 H (0.4-2.0) Calcium 9.1 (8.4-10.2) mg/dL Total Bilirubin 0.80 (0.2-1.3) mg/dL AST 21 (14-36) U/L ALT 16 (0-35) U/L Alkaline Phosphatase 91 (38-126) U/L Troponin I (0.000-0.034) ng/mL Serum Total Protein 6.4 (6.3-8.2) g/dL Albumin 3.5 (3.5-5.0) g/dL Amylase 58 (30-110) U/L Lipase 54 (23-300) U/L Urine Color (Yellow) Urine Appearance (Clear) Urine pH (4.6-8.0) Ur Specific [place] (1.005-1.030) Urine Protein (Negative) Urine Glucose (UA) (Negative) mg/dL Urine Ketones (Negative) Urine Blood (Negative) Urine Nitrite (Negative) Urine Bilirubin (Negative) Urine Urobilinogen (0.2) mg/dL Ur Leukocyte Esterase (Negative) U Hyaline Cast (Auto) (0-2) /LPF Urine Microscopic RBC (0-5) /HPF Urine Microscopic WBC (0-5) /HPF Ur Epithelial Cells (None Seen) /HPF Urine Bacteria (None Seen) /HPF Urine Culture Reflexed (NO) Influenza Type A Ag (NEGATIVE) Influenza Type B Ag (NEGATIVE) RSV (PCR) (NEGATIVE) SARS-CoV-2 (PCR) (NEGATIVE) 08/19/22 08/19/22 08/19/22 Range/Units 12:58 12:58 12:58 WBC (4.0-10.5) x10^3/uL RBC (4.1-5.4) x10^6/uL Hgb (12.0-16.0) g/dL Hct (35-47) % MCV (78-100) fL MCH (26-32) pg MCHC (32-36) g/dL RDW (11.5-14.0) % Plt Count (150-450) x10^3/uL MPV (7.5-11.0) fL Gran % (36.0-66.0) % Immature Gran % (Auto) (0.00-0.4) % Nucleat RBC Rel Count (0.00-0.1) % Eos # (Auto) (0-0.5) x10^3/uL Immature Gran # (Auto) (0.00-0.03) x10^3u/L Absolute Lymphs (auto) (1.0-4.6) x10^3/uL Absolute Monos (auto) (0.0-1.3) x10^3/uL Absolute Nucleated RBC (0.00-0.01) x10^3u/L Lymphocytes % (24.0-44.0) % Monocytes % (0.0-12.0) % Eosinophils % (0.00-5.0) % Basophils % (0.0-0.4) % Absolute Granulocytes (1.4-6.9) x10^3/uL Basophils # (0-0.4) x10^3/uL PT 11.9 (9.4-12.5) SECONDS INR 1.10 (0.8-3.0) Sodium (137-145) mmol/L Potassium (3.5-5.1) mmol/L Chloride (98-107) mmol/L Carbon Dioxide (22-30) mmol/L Anion Gap (5-15) MEQ/L BUN (7-17) mg/dL Creatinine (0.52-1.04) mg/dL Estimated GFR ML/MIN Glucose (74-106) mg/dL POC Glucometer (74 to 106) mg/dL Lactic Acid (0.4-2.0) Calcium (8.4-10.2) mg/dL Total Bilirubin (0.2-1.3) mg/dL AST (14-36) U/L ALT (0-35) U/L Alkaline Phosphatase (38-126) U/L Troponin I 0.016 (0.000-0.034) ng/mL Serum Total Protein (6.3-8.2) g/dL Albumin (3.5-5.0) g/dL Amylase (30-110) U/L Lipase (23-300) U/L Urine Color (Yellow) Urine Appearance (Clear) Urine pH (4.6-8.0) Ur Specific [place] (1.005-1.030) Urine Protein (Negative) Urine Glucose (UA) (Negative) mg/dL Urine Ketones (Negative) Urine Blood (Negative) Urine Nitrite (Negative) Urine Bilirubin (Negative) Urine Urobilinogen (0.2) mg/dL Ur Leukocyte Esterase (Negative) U Hyaline Cast (Auto) (0-2) /LPF Urine Microscopic RBC (0-5) /HPF Urine Microscopic WBC (0-5) /HPF Ur Epithelial Cells (None Seen) /HPF Urine Bacteria (None Seen) /HPF Urine Culture Reflexed (NO) Influenza Type A Ag NEGATIVE (NEGATIVE) Influenza Type B Ag NEGATIVE (NEGATIVE) RSV (PCR) NEGATIVE (NEGATIVE) SARS-CoV-2 (PCR) NEGATIVE (NEGATIVE) 08/19/22 08/19/22 08/19/22 Range/Units 14:03 14:52 15:23 WBC (4.0-10.5) x10^3/uL RBC (4.1-5.4) x10^6/uL Hgb (12.0-16.0) g/dL Hct (35-47) % MCV (78-100) fL MCH (26-32) pg MCHC (32-36) g/dL RDW (11.5-14.0) % Plt Count (150-450) x10^3/uL MPV (7.5-11.0) fL Gran % (36.0-66.0) % Immature Gran % (Auto) (0.00-0.4) % Nucleat RBC Rel Count (0.00-0.1) % Eos # (Auto) (0-0.5) x10^3/uL Immature Gran # (Auto) (0.00-0.03) x10^3u/L Absolute Lymphs (auto) (1.0-4.6) x10^3/uL Absolute Monos (auto) (0.0-1.3) x10^3/uL Absolute Nucleated RBC (0.00-0.01) x10^3u/L Lymphocytes % (24.0-44.0) % Monocytes % (0.0-12.0) % Eosinophils % (0.00-5.0) % Basophils % (0.0-0.4) % Absolute Granulocytes (1.4-6.9) x10^3/uL Basophils # (0-0.4) x10^3/uL PT (9.4-12.5) SECONDS INR (0.8-3.0) Sodium (137-145) mmol/L Potassium (3.5-5.1) mmol/L Chloride (98-107) mmol/L Carbon Dioxide (22-30) mmol/L Anion Gap (5-15) MEQ/L BUN (7-17) mg/dL Creatinine (0.52-1.04) mg/dL Estimated GFR ML/MIN Glucose (74-106) mg/dL POC Glucometer 88 (74 to 106) mg/dL Lactic Acid 2.0 (0.4-2.0) Calcium (8.4-10.2) mg/dL Total Bilirubin (0.2-1.3) mg/dL AST (14-36) U/L ALT (0-35) U/L Alkaline Phosphatase (38-126) U/L Troponin I (0.000-0.034) ng/mL Serum Total Protein (6.3-8.2) g/dL Albumin (3.5-5.0) g/dL Amylase (30-110) U/L Lipase (23-300) U/L Urine Color Yellow (Yellow) Urine Appearance Clear (Clear) Urine pH 5.5 (4.6-8.0) Ur Specific [place] <=1.005 (1.005-1.030) Urine Protein Negative (Negative) Urine Glucose (UA) Negative (Negative) mg/dL Urine Ketones Negative (Negative) Urine Blood Small A (Negative) Urine Nitrite Negative (Negative) Urine Bilirubin Negative (Negative) Urine Urobilinogen 0.2 (0.2) mg/dL Ur Leukocyte Esterase Negative (Negative) U Hyaline Cast (Auto) NONE SEEN (0-2) /LPF Urine Microscopic RBC 0-2 (0-5) /HPF Urine Microscopic WBC 0-2 (0-5) /HPF Ur Epithelial Cells None Seen (None Seen) /HPF Urine Bacteria None Seen (None Seen) /HPF Urine Culture Reflexed NO (NO) Influenza Type A Ag (NEGATIVE) Influenza Type B Ag (NEGATIVE) RSV (PCR) (NEGATIVE) SARS-CoV-2 (PCR) (NEGATIVE) 08/19/22 08/19/22 08/19/22 Range/Units 16:18 16:30 20:15 WBC (4.0-10.5) x10^3/uL RBC (4.1-5.4) x10^6/uL Hgb (12.0-16.0) g/dL Hct (35-47) % MCV (78-100) fL MCH (26-32) pg MCHC (32-36) g/dL RDW (11.5-14.0) % Plt Count (150-450) x10^3/uL MPV (7.5-11.0) fL Gran % (36.0-66.0) % Immature Gran % (Auto) (0.00-0.4) % Nucleat RBC Rel Count (0.00-0.1) % Eos # (Auto) (0-0.5) x10^3/uL Immature Gran # (Auto) (0.00-0.03) x10^3u/L Absolute Lymphs (auto) (1.0-4.6) x10^3/uL Absolute Monos (auto) (0.0-1.3) x10^3/uL Absolute Nucleated RBC (0.00-0.01) x10^3u/L Lymphocytes % (24.0-44.0) % Monocytes % (0.0-12.0) % Eosinophils % (0.00-5.0) % Basophils % (0.0-0.4) % Absolute Granulocytes (1.4-6.9) x10^3/uL Basophils # (0-0.4) x10^3/uL PT (9.4-12.5) SECONDS INR (0.8-3.0) Sodium (137-145) mmol/L Potassium (3.5-5.1) mmol/L Chloride (98-107) mmol/L Carbon Dioxide (22-30) mmol/L Anion Gap (5-15) MEQ/L BUN (7-17) mg/dL Creatinine (0.52-1.04) mg/dL Estimated GFR ML/MIN Glucose (74-106) mg/dL POC Glucometer 94 (74 to 106) mg/dL Lactic Acid (0.4-2.0) Calcium (8.4-10.2) mg/dL Total Bilirubin (0.2-1.3) mg/dL AST (14-36) U/L ALT (0-35) U/L Alkaline Phosphatase (38-126) U/L Troponin I < 0.012 < 0.012 (0.000-0.034) ng/mL Serum Total Protein (6.3-8.2) g/dL Albumin (3.5-5.0) g/dL Amylase (30-110) U/L Lipase (23-300) U/L Urine Color (Yellow) Urine Appearance (Clear) Urine pH (4.6-8.0) Ur Specific [place] (1.005-1.030) Urine Protein (Negative) Urine Glucose (UA) (Negative) mg/dL Urine Ketones (Negative) Urine Blood (Negative) Urine Nitrite (Negative) Urine Bilirubin (Negative) Urine Urobilinogen (0.2) mg/dL Ur Leukocyte Esterase (Negative) U Hyaline Cast (Auto) (0-2) /LPF Urine Microscopic RBC (0-5) /HPF Urine Microscopic WBC (0-5) /HPF Ur Epithelial Cells (None Seen) /HPF Urine Bacteria (None Seen) /HPF Urine Culture Reflexed (NO) Influenza Type A Ag (NEGATIVE) Influenza Type B Ag (NEGATIVE) RSV (PCR) (NEGATIVE) SARS-CoV-2 (PCR) (NEGATIVE) 08/19/22 08/20/22 08/20/22 Range/Units 22:01 04:00 05:25 WBC 7.3 (4.0-10.5) x10^3/uL RBC 3.26 L (4.1-5.4) x10^6/uL Hgb 10.8 L (12.0-16.0) g/dL Hct 34.0 L (35-47) % MCV 104.3 H (78-100) fL MCH 33.1 H (26-32) pg MCHC 31.8 L (32-36) g/dL RDW 13.2 (11.5-14.0) % Plt Count 138 L (150-450) x10^3/uL MPV 10.3 (7.5-11.0) fL Gran % 47.9 (36.0-66.0) % Immature Gran % (Auto) 0.3 (0.00-0.4) % Nucleat RBC Rel Count 0.0 (0.00-0.1) % Eos # (Auto) 0.71 H (0-0.5) x10^3/uL Immature Gran # (Auto) 0.02 (0.00-0.03) x10^3u/L Absolute Lymphs (auto) 2.15 (1.0-4.6) x10^3/uL Absolute Monos (auto) 0.91 (0.0-1.3) x10^3/uL Absolute Nucleated RBC 0.00 (0.00-0.01) x10^3u/L Lymphocytes % 29.4 (24.0-44.0) % Monocytes % 12.4 H (0.0-12.0) % Eosinophils % 9.7 H (0.00-5.0) % Basophils % 0.3 (0.0-0.4) % Absolute Granulocytes 3.50 (1.4-6.9) x10^3/uL Basophils # 0.02 (0-0.4) x10^3/uL PT (9.4-12.5) SECONDS INR (0.8-3.0) Sodium 140 (137-145) mmol/L Potassium 3.6 (3.5-5.1) mmol/L Chloride 112 H (98-107) mmol/L Carbon Dioxide 20 L (22-30) mmol/L Anion Gap 12.7 (5-15) MEQ/L BUN 17 (7-17) mg/dL Creatinine 0.86 (0.52-1.04) mg/dL Estimated GFR > 60.0 ML/MIN Glucose 75 (74-106) mg/dL POC Glucometer 76 (74 to 106) mg/dL Lactic Acid (0.4-2.0) Calcium 8.0 L (8.4-10.2) mg/dL Total Bilirubin 0.60 (0.2-1.3) mg/dL AST 18 (14-36) U/L ALT 12 (0-35) U/L Alkaline Phosphatase 66 (38-126) U/L Troponin I (0.000-0.034) ng/mL Serum Total Protein 5.3 L (6.3-8.2) g/dL Albumin 2.7 L (3.5-5.0) g/dL Amylase (30-110) U/L Lipase (23-300) U/L Urine Color (Yellow) Urine Appearance (Clear) Urine pH (4.6-8.0) Ur Specific [place] (1.005-1.030) Urine Protein (Negative) Urine Glucose (UA) (Negative) mg/dL Urine Ketones (Negative) Urine Blood (Negative) Urine Nitrite (Negative) Urine Bilirubin (Negative) Urine Urobilinogen (0.2) mg/dL Ur Leukocyte Esterase (Negative) U Hyaline Cast (Auto) (0-2) /LPF Urine Microscopic RBC (0-5) /HPF Urine Microscopic WBC (0-5) /HPF Ur Epithelial Cells (None Seen) /HPF Urine Bacteria (None Seen) /HPF Urine Culture Reflexed (NO) Influenza Type A Ag (NEGATIVE) Influenza Type B Ag (NEGATIVE) RSV (PCR) (NEGATIVE) SARS-CoV-2 (PCR) (NEGATIVE) 08/20/22 08/20/22 Range/Units 06:20 11:26 WBC (4.0-10.5) x10^3/uL RBC (4.1-5.4) x10^6/uL Hgb (12.0-16.0) g/dL Hct (35-47) % MCV (78-100) fL MCH (26-32) pg MCHC (32-36) g/dL RDW (11.5-14.0) % Plt Count (150-450) x10^3/uL MPV (7.5-11.0) fL Gran % (36.0-66.0) % Immature Gran % (Auto) (0.00-0.4) % Nucleat RBC Rel Count (0.00-0.1) % Eos # (Auto) (0-0.5) x10^3/uL Immature Gran # (Auto) (0.00-0.03) x10^3u/L Absolute Lymphs (auto) (1.0-4.6) x10^3/uL Absolute Monos (auto) (0.0-1.3) x10^3/uL Absolute Nucleated RBC (0.00-0.01) x10^3u/L Lymphocytes % (24.0-44.0) % Monocytes % (0.0-12.0) % Eosinophils % (0.00-5.0) % Basophils % (0.0-0.4) % Absolute Granulocytes (1.4-6.9) x10^3/uL Basophils # (0-0.4) x10^3/uL PT (9.4-12.5) SECONDS INR (0.8-3.0) Sodium (137-145) mmol/L Potassium (3.5-5.1) mmol/L Chloride (98-107) mmol/L Carbon Dioxide (22-30) mmol/L Anion Gap (5-15) MEQ/L BUN (7-17) mg/dL Creatinine (0.52-1.04) mg/dL Estimated GFR ML/MIN Glucose (74-106) mg/dL POC Glucometer 78 114 H (74 to 106) mg/dL Lactic Acid (0.4-2.0) Calcium (8.4-10.2) mg/dL Total Bilirubin (0.2-1.3) mg/dL AST (14-36) U/L ALT (0-35) U/L Alkaline Phosphatase (38-126) U/L Troponin I (0.000-0.034) ng/mL Serum Total Protein (6.3-8.2) g/dL Albumin (3.5-5.0) g/dL Amylase (30-110) U/L Lipase (23-300) U/L Urine Color (Yellow) Urine Appearance (Clear) Urine pH (4.6-8.0) Ur Specific [place] (1.005-1.030) Urine Protein (Negative) Urine Glucose (UA) (Negative) mg/dL Urine Ketones (Negative) Urine Blood (Negative) Urine Nitrite (Negative) Urine Bilirubin (Negative) Urine Urobilinogen (0.2) mg/dL Ur Leukocyte Esterase (Negative) U Hyaline Cast (Auto) (0-2) /LPF Urine Microscopic RBC (0-5) /HPF Urine Microscopic WBC (0-5) /HPF Ur Epithelial Cells (None Seen) /HPF Urine Bacteria (None Seen) /HPF Urine Culture Reflexed (NO) Influenza Type A Ag (NEGATIVE) Influenza Type B Ag (NEGATIVE) RSV (PCR) (NEGATIVE) SARS-CoV-2 (PCR) (NEGATIVE) Accuchecks Date 08/20/22 Date 08/20/22 Date 08/19/22 Date 08/19/22 Time 11:30 Time 06:42 Time 22:00 Time 16:20 - Radiology Impressions Radiology Exams & Impressions: Radiology Procedures Category Date Time Status ABDOMEN AND PELVIS W CONTRAST [CT] Stat Exams 08/19/22 12:19 Completed Assessment/Plan (1) Gastroenteritis Current Visit: Yes Status: Acute Code(s): K52.9 - NONINFECTIVE GASTROENTERITIS AND COLITIS, UNSPECIFIED (2) Dehydration Current Visit: Yes Status: Acute Code(s): E86.0 - DEHYDRATION (3) HTN (hypertension) Current Visit: Yes Status: Chronic Code(s): I10 - ESSENTIAL (PRIMARY) HYPERTENSION (4) DM2 (diabetes mellitus, type 2) Current Visit: Yes Status: Chronic 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
[2022-08-20 12:32] LABS: Eosinophil 7 % (0.00-3.0); Lymphocytes 22 % (24-44); Monocyte 2 % (0.0-12.0); Neutrophils 69 % (36.0-66.0); Platelet Estimate DECREASED (NORMAL); Total Cells Counted 100
[2022-08-20 12:33] LABS: ANISOCYTOSIS 1+
[2022-08-20] MEDS: Ocuvite Tablet PO SCH (22:18)
[2022-08-20] MEDS: Acidophilus TABLET PO SCH (22:18)
[2022-08-20] MEDS: ECOTRIN 81 MG PO SCH (22:18)
[2022-08-20] MEDS: ZOCOR 20MG PO SCH (22:18)
[2022-08-20] MEDS: Lopressor 50 MG PO SCH (22:19)
[2022-08-20] MEDS: Vitamin B-12 500 MCG PO SCH (22:19)
[2022-08-21] MEDS: FLAGYL 500 MG IVPB 500 MG/100 ML BAG IV SCH ×2 (05:41→11:14)
[2022-08-21 06:09] VITALS: PULSE 67
[2022-08-21] MEDS: Imdur 30 MG PO SCH (08:53)
[2022-08-21] MEDS: ELIQUIS 2.5 MG TABLET PO SCH (08:54)
[2022-08-21] MEDS: Protonix 40MG Tablet PO SCH (08:54)
[2022-08-21] MEDS: VITAMIN D PO SCH (08:54)
[2022-08-21] MEDS: Benicar 20 MG PO SCH (08:54)
[2022-08-21] MEDS: PROZAC 10 MG PO SCH (08:56)
[2022-08-21] MEDS: SYNTHROID 88 MCG PO SCH (08:56)
[2022-08-21] MEDS ORDERED: Tums EX 750 MG PO PRN (11:15)
--- NOTE | 2022-08-21 11:26 | PCM.DCORD ---
- Discharge Condition: Good Prescriptions: New metroNIDAZOLE [Metronidazole] 250 mg PO TIDWM 3 Days #9 tablet Continue Glipizide 2.5 mg [Glucotrol Xl 2.5 MG] 2.5 mg PO DAILY Isosorbide Mononitrate 30 mg [Imdur 30 MG] 60 mg PO DAILY Aspirin 81 mg PO HS Metoprolol Tartrate 25 mg PO HS Levothyroxine Sodium 112 Mcg [Synthroid 112 Mcg] 88 mcg PO DAILY Omeprazole 20 MG [Prilosec 20 mg] 20 mg PO DAILY Amino Acids/Mv,Fe,Other Min [Ocuvite Extra Tablet] 1 each PO HS Apixaban [Eliquis] 2.5 mg PO BID Atorvastatin Calcium [Lipitor 40Mg] 1 tab PO DAILY Olmesartan Medoxomil [Benicar] 20 mg PO DAILY Docusate Sodium [Colace] 1 tab PO DAILY L.acidoph,Paracasei, B.lactis [Probiotic] 1 cap PO HS Fluoxetine HCl 10 mg [Prozac 10 mg] 10 mg PO DAILY Cholecalciferol (Vitamin D3) [Vitamin D3] 2,000 unit PO DAILY Cyanocobalamin (Vitamin B-12) [Vitamin B-12] 1,000 mcg PO HS Instructions: Viral Gastroenteritis, Adult (DC)
[2022-08-21 11:54] VITALS: BP 165/72; O2SAT 92
== END 2022-08-21 12:54 | disposition home or self-care (01) ==
LOC: ED 12:04 → MED SURG 15:56
PROVIDERS: ADMIT Family Medicine; ATTEND Family Medicine
DX: K52.9 Noninfective gastroenteritis and colitis, unspecified (principal); E86.0 Dehydration; I10 Essential (primary) hypertension; E78.5 Hyperlipidemia, unspecified; E11.9 Type 2 diabetes mellitus without complications; E03.9 Hypothyroidism, unspecified; Z79.01 Long term (current) use of anticoagulants; Z79.899 Other long term (current) drug therapy; Z20.828 Contact with and (suspected) exposure to other viral communicable diseases
CPT/HCPCS: 0241U; 36000; 36415; 74177; 80053; 81001; 82150; 82947; 83605; 83690; 84443; 84484; 85025; 85610; 87040; 93005; 96374; 99285; 87493; J2405; A9270-GY

== ENCOUNTER 2023-06-09 09:53 | Emergency (ER) | payer MEDICARE, OTHER ==
--- NOTE | 2023-06-09 10:04 | ERPHSYRPT ---
- History of Present Illness Time Seen by Provider: 06/09/23 10:04 Source: patient Exam Limitations: no limitations Physician History: This is an 87-year-old white female patient who is on Eliquis. She is a patient of Dr. Lanier. Patient is always unsteady on her feet and uses a walker to ambulate. This morning, while using the walker, she fell to the right side and hit her head. She did not lose consciousness. She is a little nauseated but has no vomiting. She denies chest pain. She denies shortness of breath. She denies visual changes. She has no dizziness. She states that she did not have a syncopal episode. Patient has a history of gastroesophageal reflux disease, hypothyroidism, hyperlipidemia, diabetes, hypertension. Occurred: this morning Injuries/Pain Location: head Loss of Consciousness: no loss of consciousness Quality: aching Severity of Pain-Max: mild Severity of Pain-Current: mild (Mild) Modifying Factors: Improves With: nothing Associated Symptoms (Fall): denies symptoms Allergies/Adverse Reactions: penicillin G Allergy (Verified 08/19/22 12:21) hydrocodone bitartrate [From [place]] Adverse Reaction (Verified 08/19/22 12:21) lisinopril Adverse Reaction (Verified 08/19/22 12:21) procainamide HCl [From Pronestyl] Adverse Reaction (Verified 08/19/22 12:21) PRESANTINE Allergy (Uncoded 08/19/22 12:21) Home Medications: Aspirin 81 mg PO HS 04/04/13 [History] Glipizide 2.5 mg [Glucotrol Xl 2.5 MG] 2.5 mg PO DAILY 04/04/13 [History] Isosorbide Mononitrate 30 mg [Imdur 30 MG] 60 mg PO DAILY 04/04/13 [History] Levothyroxine Sodium 112 Mcg [Synthroid 112 Mcg] 88 mcg PO DAILY 04/04/13 [History] Metoprolol Tartrate 25 mg PO HS 04/04/13 [History] Omeprazole 20 MG [Prilosec 20 mg] 20 mg PO DAILY 04/04/13 [History] Apixaban [Eliquis] 2.5 mg PO BID 07/26/20 [History] Atorvastatin Calcium [Lipitor 40Mg] 40 mg PO DAILY 07/26/20 [History] Olmesartan Medoxomil [Benicar] 40 mg PO DAILY 07/26/20 [History] Cyanocobalamin (Vitamin B-12) [Vitamin B-12] 1,000 mcg PO HS 08/19/22 [History] Docusate Sodium [Colace] 1 tab PO DAILY 08/19/22 [History] L.acidoph,Paracasei, B.lactis [Probiotic] 1 cap PO HS 08/19/22 [History] Beta-Carotene(A) W-C & E/Min [Ocuvite Tablet] 1 tab PO DAILY 06/09/23 [History] Paroxetine HCl 20 mg [Paxil 20 MG] 20 mg PO DAILY 06/09/23 [History] Hx Tetanus, Diphtheria Vaccination/Date Given: No Hx Influenza Vaccination/Date Given: Yes Hx Pneumococcal Vaccination/Date Given: Yes Travel Risk - International Travel Have you traveled outside of the country in past 3 weeks: No - Emerging Infectious Disease Are you exhibiting symptoms associated with any current EIDs: No - Vaccine Status Hx Covid Vaccintation/Booster/Date Given: No - Review of Systems Constitutional: No Symptoms Eyes: No Symptoms Ears, Nose, & Throat: No Symptoms Respiratory: No Symptoms Cardiac: No Symptoms Abdominal/Gastrointestinal: No Symptoms Genitourinary Symptoms: No Symptoms Musculoskeletal: No Symptoms Skin: No Symptoms Neurological: Headache (Contusion swelling right parietal/occipital region) Psychological: No Symptoms Endocrine: No Symptoms Hematologic/Lymphatic: No Symptoms Immunological/Allergic: No Symptoms All Other Systems: Reviewed and Negative - Past Medical History Pertinent Past Medical History: Yes Neurological History: No Pertinent History, TIA ENT History: No Pertinent History, Cataracts Cardiac History: High Cholesterol, Hypertension Respiratory History: No Pertinent History Endocrine Medical History: Diabetes Type II, Hypothyroidism Musculoskeletal History: Osteoarthritis GI Medical History: GERD History: No Pertinent History Psycho-Social History: No Pertinent History Female Reproductive Disorders: No Pertinent History Other Medical History: B TKA, L ankle fracture with hardware. 2-3 fainting spells, the last was 3 years ago. Nausea, SOB - Past Surgical History Past Surgical History: Yes Neuro Surgical History: No Pertinent History Cardiac: No Pertinent History Respiratory: No Pertinent History Gastrointestinal: Cholecystectomy Genitourinary: No Pertinent History Musculoskeletal: Joint Replacement Female Surgical History: Other Other Surgical History: bilat knee replacement. 3x D&C. 3x breast biopsies. ARTERECTOMY- CAROTID - Social History Smoking Status: Never smoker Exposure to second hand smoke: No Drug Use: none Patient Lives Alone: Yes - Nursing Vital Signs Nursing Vital Signs: Initial Vital Signs Temperature 98.0 F 06/09/23 10:07 Pulse Rate 71 06/09/23 10:07 Blood Pressure 130/51 06/09/23 10:07 O2 Sat by Pulse Oximetry 96 06/09/23 10:07 Pain Scale Pain Intensity 0 - Sells Coma Score Best Eye Response (Sells): (4) open spontaneously Best Verbal Response (Dax): (5) oriented Best Motor Response (Sells): (6) obeys commands Dax Total: 15 - Physical Exam General Appearance: no apparent distress, alert, thin Head Injury: contusions (Right parietal/occipital subcutaneous hematoma.), swelling, tenderness Eye Exam: PERRL/EOMI, eyes nml inspection ENT Exam: airway nml, nml ext.inspection Neck Exam: supple, trachea midline, full range of motion, normal alignment, normal inspection Respiratory/Chest Exam: normal breath sounds, No chest tenderness, No respiratory distress, No ecchymosis, No crepitus Cardiovascular Exam: normal heart sounds, regular rate/rhythm Gastrointestinal Exam: soft, normal bowel sounds, No tenderness Rectal Exam: not done Back Exam: normal inspection, normal range of motion, No CVA tenderness, No vertebral tenderness Extremity Exam: normal inspection, normal range of motion, capillary refill <3 sec, pelvis stable Neurologic Exam: alert, oriented x 3, cooperative, 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 The level of complexity in the workup performed is based on review the patient's past medical history, review the patient's medication list, review of the patient's drug allergy list, history present illness and physical findings on examination. The workup includes CT scan of the head and neck. Patient does not have chest pain or shortness of breath. She has no dysuria or hematuria no urinary tract symptoms. She has no back pain. She complains of no other areas of pain on her body. The patient and family only want a CT scan of her head and cervical spine because of hitting her head and she is on Eliquis. 06/09/23 11:[address] scans were read and interpreted by the radiologist and I reviewed the impression. The CT scan of the head without contrast shows a right parietal scalp hematoma. There is no underlying fracture or acute intracranial abnormality. 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 Chronic findings include atrophy and degenerative microvascular ischemia. The CT scan of the cervical spine shows no new or acute findings. There is minimal, multilevel degenerative spondylosis, mild spondylolisthesis, and arteriosclerotic disease Counseled pt/family regarding: diagnosis, need for follow-up, rad results Medical Desision Making - Independent Historian Additional History obtained from: Family - Diagnostic Testing Diagnostic test were ordered, analyzed, and reviewed by me: Yes Radiological Interpretation: Reviewed by me, Teleradiologist Report - Departure Departure Disposition: Home Clinical Impression: Fall with no significant injury Condition: Stable Critical Care Time: No Referrals: LV LANIER DO [Primary Care Provider] - Follow up/PCP as directed Additional Instructions: Continue taking your medication as prescribed. Call your primary care provider today to make arrangements for follow-up appointment for further evaluation and management. Continue using your walker for ambulation.
[2023-06-09 10:18] VITALS: PULSE 71; TEMP 98; O2SAT 96
--- NOTE | 2023-06-09 10:59 | XRAY ---
Indication: Status post fall injury. Multiple contiguous axial images obtained through the head without contrast. Comparison: July 26, 2020 Again age-appropriate global atrophy, mild periventricular degenerative micro-ischemia bilaterally, and remote right basal ganglia lacunar infarcts. No acute intracranial hemorrhage, abnormal extra-axial fluid collection, or mass effect. Fourth ventricle is midline without hydrocephalus. New small right parietal scalp hematoma near the vertex. Bony calvarium intact. Visualized paranasal sinuses and mastoid air cells are clear. Impression: 1. Right parietal scalp hematoma. No underlying fracture or acute intracranial abnormalities. 2. Again chronic findings including atrophy, degenerative micro-ischemia, and right basal ganglia remote lacunar infarcts.
--- NOTE | 2023-06-09 11:03 | XRAY ---
Indication: Status post fall injury. Multiple contiguous images obtained through the cervical spine. Sagittal and coronal reformatted images obtained. Comparison: July 26, 2020 Again osteopenia. Axial images again negative for acute fracture, suspicious bone lesions, or spinal canal stenosis. Stable mild/moderate C3-C7 degenerative endplate spurring, moderate atlantoaxial degenerative arthropathy, and moderate multilevel bilateral degenerative facet hypertrophy. Sagittal and coronal reformatted images again demonstrates lordotic reversal, positional versus paraspinal spasm. Stable 1-2 mm anterolisthesis of C2 on C3, C4 on C5, and C7 on T1. Stable C5-C7 degenerative disc space loss. Again no acute compression fracture or jumped facet. Normal appearing craniocervical junction. Visualized noncontrasted soft tissues again demonstrates moderate scattered vascular calcifications bilaterally. Lung apices are clear. Impression: 1. Again cervical lordotic reversal, osteopenia, multilevel degenerative spondylosis, multilevel minimal spondylolisthesis, and arteriosclerotic disease. 2. No new/acute findings.
[2023-06-09 11:11] VITALS: BP 112/61
== END 2023-06-09 11:27 | disposition home or self-care (01) ==
LOC: ED 09:53
DX: Z04.3 Encounter for examination and observation following other accident (principal); R26.81 Unsteadiness on feet; R11.0 Nausea; E78.5 Hyperlipidemia, unspecified; E11.9 Type 2 diabetes mellitus without complications; I10 Essential (primary) hypertension; Z79.84 Long term (current) use of oral hypoglycemic drugs; Z79.01 Long term (current) use of anticoagulants; Z79.899 Other long term (current) drug therapy; Z28.310 Unvaccinated for COVID-19
CPT/HCPCS: 70450; 72125; 99282

== ENCOUNTER 2023-10-05 11:22 | Inpatient (IN) | payer MEDICARE, OTHER ==
[2023-10-05] MEDS ORDERED: Sodium Chloride 0.9% 1000 ML 1,000 ML ONE (13:06)
[2023-10-05] MEDS ORDERED: Zofran 4 MG/2 ML VIAL ONE (13:06)
[2023-10-05] MEDS: Sodium Chloride 0.9% 1000 ML 1,000 ML IV STA (13:09)
[2023-10-05] MEDS: Zofran 4 MG/2 ML VIAL IV ONE (13:10)
[2023-10-05 13:21] LABS: Absolute Neutrophil Ct (ANC) 7.52 x10^3/uL (1.56-6.13); BASOPHIL % 0.2 % (0.1-1.2); Basophil (Absolute #) 0.02 x10^3/uL (0.01-0.08); Eosinophil % 0.8 % (0.7-5.8); Eosinophil (Absolute #) 0.08 x10^3/uL (0.04-0.36); Hematocrit 29.6 % (34.1-44.9); IMMATURE GRAN # 0.06 x10^3u/L (0.001-0.031); IMMATURE GRAN % 0.6 % (0.001-0.429); Lymphocyte (Absolute #) 1.38 x10^3/uL (1.18-3.74); Lymphocytes % 14.2 % (19.3-51.7); Mean Cell Volume 88.9 fL (79.4-94.8); Mean Corpuscular Hgb Concent. 30.4 g/dL (32.2-35.5); Mean Platelet Volume 9.2 fL (9.4-12.3); Monocyte (Absolute #) 0.68 x10^3/uL (0.24-0.86); Neutrophil % 77.2 % (34.0-71.1); Platelet Count 317 x10^3/uL (182-369); Red Blood Count 3.33 x10^6/uL (3.93-5.22); Red Cell Distribution Width 15.6 % (11.7-14.4); White Blood Count 9.7 x10^3/uL (3.98-10.04)
--- NOTE | 2023-10-05 13:30 | XRAY ---
Indication: Weakness. Syncope. Fall. Comparison: July 26, 2020 Portable chest again demonstrates minimal right costophrenic angle fibrosis/scarring. Remaining lungs inflated and clear. Heart not enlarged. Bony thorax intact again with osteopenia, degenerative changes, and levoscoliosis. Impression: Nonacute chest with chronic features.
[2023-10-05 13:35] LABS: ALBUMIN 3.5 g/dL (3.5-5.0); ANION GAP 12.2 MEQ/L (5-15); BILIRUBIN,TOTAL 0.4 mg/dL (0.2-1.3); Calcium 9.7 mg/dL (8.4-10.2); Creatinine 1 0.94 mg/dL (0.52-1.04); EST GLOMERULAR FILTRATION RATE 59.1 ML/MIN; MAGNESIUM 1.7 mg/dL (1.6-2.3)
--- NOTE | 2023-10-05 14:00 | XRAY ---
Indication: Syncope. Fall. Multiple contiguous axial images obtained through the head without contrast. Comparison: June 09, 2023 Again age-appropriate global atrophy, mild periventricular degenerative micro-ischemia bilaterally, and remote lacunar infarct right basal ganglia. No acute intracranial hemorrhage, abnormal extra-axial fluid collection, or mass effect. Fourth ventricle is midline without hydrocephalus. Bony calvarium intact. Visualized paranasal sinuses and mastoid air cells are clear. Impression: Again nonacute senile brain with remote lacunar infarct right basal ganglia.
--- NOTE | 2023-10-05 14:04 | XRAY ---
Indication: Syncope. Fall. Multiple contiguous axial images obtained through the cervical spine. Sagittal and coronal reformatted images obtained. Comparison: June 09, 2023 Osseous structures remain demineralized. Axial images again negative for acute fracture, suspicious bony lesions, or spinal canal stenosis. Again mild/moderate multilevel degenerative endplate spurring, moderate atlantoaxial degenerative arthropathy, and moderate multilevel bilateral degenerative facet hypertrophy Sagittal and coronal reformatted images again demonstrates mild lordotic reversal, positional versus paraspinal spasm. Stable 1-2 mm anterior spondylolisthesis C2 on C3, C4 on C5, and C7 on T1. Stable C5-C7 disc space loss. No acute compression fracture or jumped facet. Normal appearing craniocervical junction. Visualized noncontrasted soft tissues again demonstrates scattered vascular calcifications bilaterally and left neck surgical clips. Lung apices clear. Impression: Again cervical lordotic reversal, osteopenia, multilevel degenerative spondylosis, multilevel minimal spondylolisthesis, and arteriosclerotic disease. No new/acute findings.
[2023-10-05 15:17] LABS: IFOB TEST RESULTS POSITIVE (NEGATIVE)
[2023-10-05 15:59] LABS: ADD URINE CULTURE? YES (NO); Appearance Cloudy (Clear); Bacteria Few /HPF (None Seen); Bilirubin Negative (Negative); Blood Large (Negative); Epithelial Cells Few /HPF (None Seen); Glucose, Urine Negative (Negative); Hyaline Casts None Seen /LPF (0-2); Ketones Trace (Negative); Leukocyte Esterase Moderate (Negative); Nitrite Negative (Negative); Ph 5.5 (4.6-8.0); Protein,Urine Dip 30 (Negative); RBC >100 /HPF (0-5); WBC 21-50 /HPF (0-5)
[2023-10-05] MEDS ORDERED: PROTONIX 40 MG IV IV ONE (16:22)
[2023-10-05] MEDS ORDERED: Levofloxacin 500MG/100ML D5W 500 MG/100 ML BAG IV ONE (16:22)
[2023-10-05] MEDS: PROTONIX 40 MG IV IV ONE (16:28)
[2023-10-05] MEDS: Levofloxacin 500MG/100ML D5W 500 MG/100 ML BAG IV STA (16:29)
--- NOTE | 2023-10-05 16:36 | ERPHSYRPT ---
- History of Present Illness Time Seen by Provider: 10/05/23 11:43 Source: patient, family, EMS Exam Limitations: no limitations Patient Subjective Stated Complaint: C/O multiple falls today. Bilateral knee pain and left hip following last fall this am. Patient indicates she became weak, thinks she "passed out" then fell at home. Triage Nursing Assessment: Patient arrived by ambulance. She is hard of hearing. Not the best historian. Alert and oriented at this time. No SOB. Pale. No skin alterations noted to areas of pain. Patient unaware if she hit her head or not but states she does take eliquis and took a dose already this am. Physician History: 88 years old female with history of hypertension, coronary artery disease, pulmonary embolism on Eliquis, issues with balance at her baseline presented in the ER with recurrent falls with loss of consciousness from fall this morning. Patient reports she gets lightheaded with standing up and weak all over leading to fall. This morning she fell between her bed and chair, loss of consciousness for few seconds to minutes. Does not remember hitting her head. She is complaining of some pain in the left knee and hip which is there chronically but was complaining of little more. She has no difficulty movements of hip and knee at all. No shortening or rotation. Denies any chest pain palpitations or shortness of breath before or after. Denies any dark stool. No fever or chills reported. Does have history of recurrent UTIs. Allergies/Adverse Reactions: penicillin G Allergy (Verified 10/05/23 11:28) hydrocodone bitartrate [From [place]] Adverse Reaction (Verified 10/05/23 11:28) lisinopril Adverse Reaction (Verified 10/05/23 11:28) procainamide HCl [From [place]ron[place]] Adverse Reaction (Verified 10/05/23 11:28) PRESANTINE Allergy (Uncoded 10/05/23 11:28) Home Medications: Aspirin 81 mg PO HS 04/04/13 [History] Glipizide 2.5 mg [Glucotrol Xl 2.5 MG] 2.5 mg PO DAILY 04/04/13 [History] Isosorbide Mononitrate 30 mg [Imdur 30 MG] 60 mg PO DAILY 04/04/13 [History] Levothyroxine Sodium 112 Mcg [Synthroid 112 Mcg] 88 mcg PO DAILY 04/04/13 [History] Metoprolol Tartrate 25 mg PO HS 04/04/13 [History] Omeprazole 20 MG [Prilosec 20 mg] 20 mg PO DAILY 04/04/13 [History] Apixaban [Eliquis] 2.5 mg PO BID 07/26/20 [History] Atorvastatin Calcium [Lipitor 40Mg] 40 mg PO DAILY 07/26/20 [History] Olmesartan Medoxomil [Benicar] 40 mg PO DAILY 07/26/20 [History] Cyanocobalamin (Vitamin B-12) [Vitamin B-12] 1,000 mcg PO HS 08/19/22 [History] Docusate Sodium [Colace] 1 tab PO DAILY 08/19/22 [History] L.acidoph,Paracasei, B.lactis [Probiotic] 1 cap PO HS 08/19/22 [History] Beta-Carotene(A) W-C & E/Min [Ocuvite Tablet] 1 tab PO DAILY 06/09/23 [History] Paroxetine HCl 20 mg [Paxil 20 MG] 20 mg PO DAILY 06/09/23 [History] Hx Tetanus, Diphtheria Vaccination/Date Given: Yes Hx Influenza Vaccination/Date Given: Yes Hx Pneumococcal Vaccination/Date Given: Yes Immunizations Up to Date: Yes Travel Risk - International Travel Have you traveled outside of the country in past 3 weeks: No - Emerging Infectious Disease Are you exhibiting symptoms associated with any current EIDs: No - Review of Systems Constitutional: Fatigue, Weakness Eyes: No Symptoms Ears, Nose, & Throat: No Symptoms Respiratory: No Symptoms Cardiac: No Symptoms Abdominal/Gastrointestinal: No Symptoms Genitourinary Symptoms: No Symptoms Musculoskeletal: Arthralgias, Fall Skin: No Symptoms Neurological: Dizziness Endocrine: No Symptoms Hematologic/Lymphatic: No Symptoms Immunological/Allergic: No Symptoms - Past Medical History Pertinent Past Medical History: Yes Neurological History: No Pertinent History, TIA ENT History: Cataracts Cardiac History: High Cholesterol, Hypertension Respiratory History: No Pertinent History Endocrine Medical History: Diabetes Type II, Hypothyroidism Musculoskeletal History: Fractures, Osteoarthritis GI Medical History: GERD, Gallbladder Disease History: No Pertinent History Psycho-Social History: No Pertinent History Female Reproductive Disorders: No Pertinent History Other Medical History: L ankle fracture with hardware - Past Surgical History Past Surgical History: Yes Neuro Surgical History: No Pertinent History Cardiac: No Pertinent History Respiratory: No Pertinent History Gastrointestinal: Cholecystectomy Genitourinary: No Pertinent History Musculoskeletal: Joint Replacement Female Surgical History: Dilation & Curettage, Other Other Surgical History: bilat knee replacement, breast biopsies, ARTERECTOMY- CAROTID - Social History Smoking Status: Never smoker Exposure to second hand smoke: No Drug Use: none Patient Lives Alone: Yes - Social Determinants of Health Will the patient participate in the screening: Yes Do you worry about a steady place to live?: No Do you have any problems with any of the following?: No known problems In the past 12 months,have you had to go without utilities?: No Transportation Issues: No Has anyone in your support network made you feel unsafe?: No Have you or anyone in your house had to go without enough: No - Nursing Vital Signs Nursing Vital Signs: Initial Vital Signs Temperature 97.4 F 10/05/23 11:23 Pulse Rate 80 10/05/23 11:23 Respiratory Rate 20 10/05/23 11:23 Blood Pressure 92/49 10/05/23 11:23 O2 Sat by Pulse Oximetry 94 L 10/05/23 11:23 Pain Scale Pain Intensity 4 - Physical Exam General Appearance: no apparent distress, alert Eye Exam: eyes nml inspection Ears, Nose, Throat Exam: normal ENT inspection Neck Exam: normal inspection, supple, full range of motion Respiratory Exam: normal breath sounds, lungs clear Cardiovascular Exam: regular rate/rhythm, normal heart sounds Gastrointestinal/Abdomen Exam: soft, normal bowel sounds, No tenderness Back Exam: normal inspection Extremity Exam: normal inspection, normal range of motion Neurologic Exam: alert, oriented x 3, cooperative, phosphoric acid operator II-XII nml as tested Skin Exam: normal color SpO2 Interpretation: normal SpO2: 97 O2 Delivery: Room Air - Course EKG Interpreted by Me: RATE (76), Sinus Rhythm, NORMAL AXIS, NORMAL INTERVALS, NORMAL QRS Ordered Tests: Active Orders 24 hr Category Date Time Status EKG-ER Only STAT Care 10/05/23 12:36 Active IV Insertion STAT Care 10/05/23 12:36 Active Orthostatic Vital Signs STAT Care 10/05/23 12:37 Active CERVICAL SPINE WO CONTRAST [CT] Stat Exams 10/05/23 12:36 Completed CHEST 1 VIEW (PORTABLE) Stat Exams 10/05/23 12:37 Completed HEAD WITHOUT CONTRAST [CT] Stat Exams 10/05/23 12:36 Completed BLOOD CULTURE Stat Lab 10/05/23 12:39 Received CBC W DIFF Stat Lab 10/05/23 12:39 Completed CMP Stat Lab 10/05/23 12:39 Completed CULTURE,URINE Stat Lab 10/05/23 14:53 Received LIPASE Stat Lab 10/05/23 12:39 Completed Lactic Acid Stat Lab 10/05/23 12:53 Completed Lactic Acid Stat Lab 10/05/23 14:59 Completed MAGNESIUM Stat Lab 10/05/23 12:39 Completed Occult Blood-Fecal Screen (Diagnostic) [OB-FECAL SCREEN Lab 10/05/23 15:07 Completed ] Stat TROPONIN Q4H Lab 10/05/23 12:39 Completed TROPONIN Q4H Lab 10/05/23 16:12 Completed TROPONIN Q4H Lab 10/05/23 20:45 Ordered UA W/RFX UR CULTURE Stat Lab 10/05/23 14:53 Completed Transfer Order Routine Transfer 10/05/23 Ordered Medication Summary Generic Name Dose Route Start Last Admin Trade Name Freq PRN Reason Stop Dose Admin Levofloxacin/Dextrose 500 mg in 100 mls @ 100 mls/hr 10/05/23 16:15 10/05/23 16:29 Levofloxacin 500mg/100ml D5w IV 10/05/23 17:14 100 mls/hr STAT STA 100 mls/hr Administration Discontinued Medications Generic Name Dose Route Start Last Admin Trade Name Freq PRN Reason Stop Dose Admin Sodium Chloride 1,000 mls @ 999 mls/hr 10/05/23 12:36 10/05/23 14:16 Sodium Chloride 0.9% 1000 Ml IV 10/05/23 13:36 Infused .Q1H1M STA Infusion Sodium Chloride Confirm 10/05/23 13:06 Sodium Chloride 0.9% 1000 Ml Administered 10/05/23 13:07 Dose 1,000 mls @ ud .ROUTE .STK-MED ONE Levofloxacin/Dextrose Confirm 10/05/23 16:22 Levofloxacin 500mg/100ml D5w Administered 10/05/23 16:23 Dose 500 mg in 100 mls @ ud IV .STK-MED ONE Ondansetron HCl 4 mg 10/05/23 12:36 10/05/23 13:10 Ondansetron Hcl 4 Mg/2 Ml Vial IV 10/05/23 12:37 4 mg STAT ONE Administration Ondansetron HCl Confirm 10/05/23 13:06 Ondansetron Hcl 4 Mg/2 Ml Vial Administered 10/05/23 13:07 Dose 4 mg .ROUTE .STK-MED ONE Pantoprazole Sodium 40 mg 10/05/23 16:15 10/05/23 16:28 Pantoprazole 40 Mg Vial IV 10/05/23 16:16 40 mg STAT ONE Administration Pantoprazole Sodium Confirm 10/05/23 16:22 Pantoprazole 40 Mg Vial Administered 10/05/23 16:23 Dose 40 mg IV .STK-MED ONE Lab/Rad Data: Laboratory Result Diagrams 10/05/23 12:39 10/05/23 12:39 Laboratory Results 10/05/23 10/05/23 10/05/23 Range/Units 16:12 15:07 14:59 WBC (3.98-10.04) x10^3/uL RBC (3.93-5.22) x10^6/uL Hgb (11.2-15.7) g/dL Hct (34.1-44.9) % MCV (79.4-94.8) fL MCH (25.6-32.2) pg MCHC (32.2-35.5) g/dL RDW (11.7-14.4) % Plt Count (182-369) x10^3/uL MPV (9.4-12.3) fL Gran % (34.0-71.1) % Immature Gran % (Auto) (0.001-0.429) % Nucleat RBC Rel Count (0.00-0.2) % Eos # (Auto) (0.04-0.36) x10^3/uL Immature Gran # (Auto) (0.001-0.031) x10^3u/L Absolute Lymphs (auto) (1.18-3.74) x10^3/uL Absolute Monos (auto) (0.24-0.86) x10^3/uL Absolute Nucleated RBC (0.00-0.012) x10^3u/L Lymphocytes % (19.3-51.7) % Monocytes % (4.7-12.5) % Eosinophils % (0.7-5.8) % Basophils % (0.1-1.2) % Absolute Granulocytes (1.56-6.13) x10^3/uL Basophils # (0.01-0.08) x10^3/uL Sodium (135-145) mmol/L Potassium (3.5-5.1) mmol/L Chloride (98-107) mmol/L Carbon Dioxide (22-30) mmol/L Anion Gap (5-15) MEQ/L BUN (7-17) mg/dL Creatinine (0.52-1.04) mg/dL Estimated GFR ML/MIN Glucose (74-106) mg/dL Lactic Acid 2.4 H (0.4-2.0) Calcium (8.4-10.2) mg/dL Magnesium (1.6-2.3) mg/dL Total Bilirubin (0.2-1.3) mg/dL AST (14-36) U/L ALT (0-35) U/L Alkaline Phosphatase (38-126) U/L Troponin I < 0.012 (0.000-0.033) ng/mL Serum Total Protein (6.3-8.2) g/dL Albumin (3.5-5.0) g/dL Lipase (23-300) U/L Urine Color (Yellow) Urine Appearance (Clear) Urine pH (4.6-8.0) Ur Specific [place] Range (1.005-1.030) Urine Protein (Negative) Urine Glucose (UA) (Negative) mg/dL Urine Ketones (Negative) Urine Blood (Negative) Urine Nitrite (Negative) Urine Bilirubin (Negative) Urine Urobilinogen (0.2) mg/dL Ur Leukocyte Esterase (Negative) U Hyaline Cast (Auto) (0-2) /LPF Urine Microscopic RBC (0-5) /HPF Urine Microscopic WBC (0-5) /HPF Ur Epithelial Cells (None Seen) /HPF Calcium Oxalate Crystal (None Seen) /HPF Urine Bacteria (None Seen) /HPF Urine Culture Reflexed (NO) Stl Occult Blood (IFOB) POSITIVE A (NEGATIVE) 10/05/23 10/05/23 10/05/23 Range/Units 14:53 12:53 12:39 WBC (3.98-10.04) x10^3/uL RBC (3.93-5.22) x10^6/uL Hgb (11.2-15.7) g/dL Hct (34.1-44.9) % MCV (79.4-94.8) fL MCH (25.6-32.2) pg MCHC (32.2-35.5) g/dL RDW (11.7-14.4) % Plt Count (182-369) x10^3/uL MPV (9.4-12.3) fL Gran % (34.0-71.1) % Immature Gran % (Auto) (0.001-0.429) % Nucleat RBC Rel Count (0.00-0.2) % Eos # (Auto) (0.04-0.36) x10^3/uL Immature Gran # (Auto) (0.001-0.031) x10^3u/L Absolute Lymphs (auto) (1.18-3.74) x10^3/uL Absolute Monos (auto) (0.24-0.86) x10^3/uL Absolute Nucleated RBC (0.00-0.012) x10^3u/L Lymphocytes % (19.3-51.7) % Monocytes % (4.7-12.5) % Eosinophils % (0.7-5.8) % Basophils % (0.1-1.2) % Absolute Granulocytes (1.56-6.13) x10^3/uL Basophils # (0.01-0.08) x10^3/uL Sodium (135-145) mmol/L Potassium (3.5-5.1) mmol/L Chloride (98-107) mmol/L Carbon Dioxide (22-30) mmol/L Anion Gap (5-15) MEQ/L BUN (7-17) mg/dL Creatinine (0.52-1.04) mg/dL Estimated GFR ML/MIN Glucose (74-106) mg/dL Lactic Acid 3.4 H (0.4-2.0) Calcium (8.4-10.2) mg/dL Magnesium (1.6-2.3) mg/dL Total Bilirubin (0.2-1.3) mg/dL AST (14-36) U/L ALT (0-35) U/L Alkaline Phosphatase (38-126) U/L Troponin I < 0.012 (0.000-0.033) ng/mL Serum Total Protein (6.3-8.2) g/dL Albumin (3.5-5.0) g/dL Lipase (23-300) U/L Urine Color Dark Yellow A (Yellow) Urine Appearance Cloudy A (Clear) Urine pH 5.5 (4.6-8.0) Ur Specific [place] 1.020 (1.005-1.030) Urine Protein 30 (Negative) Urine Glucose (UA) Negative (Negative) mg/dL Urine Ketones Trace A (Negative) Urine Blood Large A (Negative) Urine Nitrite Negative (Negative) Urine Bilirubin Negative (Negative) Urine Urobilinogen 1.0 A (0.2) mg/dL Ur Leukocyte Esterase Moderate A (Negative) U Hyaline Cast (Auto) None Seen (0-2) /LPF Urine Microscopic RBC >100 A (0-5) /HPF Urine Microscopic WBC 21-50 A (0-5) /HPF Ur Epithelial Cells Few (None Seen) /HPF Calcium Oxalate Crystal 3-5 A (None Seen) /HPF Urine Bacteria Few A (None Seen) /HPF Urine Culture Reflexed YES (NO) Stl Occult Blood (IFOB) (NEGATIVE) 10/05/23 10/05/23 Range/Units 12:39 12:39 WBC 9.7 (3.98-10.04) x10^3/uL RBC 3.33 L (3.93-5.22) x10^6/uL Hgb 9.0 L (11.2-15.7) g/dL Hct 29.6 L (34.1-44.9) % MCV 88.9 (79.4-94.8) fL MCH 27.0 (25.6-32.2) pg MCHC 30.4 L (32.2-35.5) g/dL RDW 15.6 H (11.7-14.4) % Plt Count 317 (182-369) x10^3/uL MPV 9.2 L (9.4-12.3) fL Gran % 77.2 H (34.0-71.1) % Immature Gran % (Auto) 0.6 H (0.001-0.429) % Nucleat RBC Rel Count 0.0 (0.00-0.2) % Eos # (Auto) 0.08 (0.04-0.36) x10^3/uL Immature Gran # (Auto) 0.06 H (0.001-0.031) x10^3u/L Absolute Lymphs (auto) 1.38 (1.18-3.74) x10^3/uL Absolute Monos (auto) 0.68 (0.24-0.86) x10^3/uL Absolute Nucleated RBC 0.00 (0.00-0.012) x10^3u/L Lymphocytes % 14.2 L (19.3-51.7) % Monocytes % 7.0 (4.7-12.5) % Eosinophils % 0.8 (0.7-5.8) % Basophils % 0.2 (0.1-1.2) % Absolute Granulocytes 7.52 H (1.56-6.13) x10^3/uL Basophils # 0.02 (0.01-0.08) x10^3/uL Sodium 137 (135-145) mmol/L Potassium 5.0 (3.5-5.1) mmol/L Chloride 101 (98-107) mmol/L Carbon Dioxide 28 (22-30) mmol/L Anion Gap 12.2 (5-15) MEQ/L BUN 28 H (7-17) mg/dL Creatinine 0.94 (0.52-1.04) mg/dL Estimated GFR 59.1 ML/MIN Glucose 274 H (74-106) mg/dL Lactic Acid (0.4-2.0) Calcium 9.7 (8.4-10.2) mg/dL Magnesium 1.7 (1.6-2.3) mg/dL Total Bilirubin 0.40 (0.2-1.3) mg/dL AST 33 (14-36) U/L ALT 23 (0-35) U/L Alkaline Phosphatase 98 (38-126) U/L Troponin I (0.000-0.033) ng/mL Serum Total Protein 6.0 L (6.3-8.2) g/dL Albumin 3.5 (3.5-5.0) g/dL Lipase 118 (23-300) U/L Urine Color (Yellow) Urine Appearance (Clear) Urine pH (4.6-8.0) Ur Specific [place] Range (1.005-1.030) Urine Protein (Negative) Urine Glucose (UA) (Negative) mg/dL Urine Ketones (Negative) Urine Blood (Negative) Urine Nitrite (Negative) Urine Bilirubin (Negative) Urine Urobilinogen (0.2) mg/dL Ur Leukocyte Esterase (Negative) U Hyaline Cast (Auto) (0-2) /LPF Urine Microscopic RBC (0-5) /HPF Urine Microscopic WBC (0-5) /HPF Ur Epithelial Cells (None Seen) /HPF Calcium Oxalate Crystal (None Seen) /HPF Urine Bacteria (None Seen) /HPF Urine Culture Reflexed (NO) Stl Occult Blood (IFOB) (NEGATIVE) - Progress Progress: improved, re-examined Progress Note: 10/05/23 16:36 88 years old is evaluated in the ER for recurrent falls and syncope earlier today. Patient has nonfocal neuroexam. EKG is normal sinus rhythm with no acute ST elevations. CT head and cervical spines are negative for any acute findings related to trauma or acute ischemic event. Chest x-ray negative. Normal white count, fairly unremarkable chemistries except for mildly elevated BUN and a lactate of 3.4. Given hydration, on reevaluation feeling better. Patient hemoglobin is dropped from 13-9.0. Denies any history of dark stool, no epigastric pain. She does take Eliquis. Stool occult is positive. She also has a UTI, given a dose of antibiotic. I believe patient has a combination of UTI sepsis with blood loss anemia causing lightheadedness. I believe patient would benefit with observation admission, monitoring of hemoglobin, IV fluid antibiotics and frequent neurochecks. Her syncope is probably secondary to drop in the blood pressure areas were low on presentation and after fluids it is low 100s. Discussed with Dr. Hobson, reviewed history, workup and agreed with admission. I have shared the results of workup with patient and family and plan of admission which they understand and agree with it. Discussed with : Brenden Counseled pt/family regarding: lab results, diagnosis, rad results Medical Desision Making - Independent Historian Additional History obtained from: Asset Coordinator/EMT - Discussion of managment Care discussed with:: hospitalist Reviewed:: Test results Agreed on:: Treatment plan, place in obs Will see patient: in hospital - Diagnostic Testing Diagnostic test were ordered, analyzed, and reviewed by me: Yes Radiological Interpretation: Reviewed by me - Risk of complications The pt has a mod risk of morbidity or mortality based on: Need for prescription drug management The pt has a high risk of morbidity or mortality based on: Decision regarding hospitilization or escalation of hosp level of care - Departure Departure Disposition: Observation Clinical Impression: Syncope and collapse, Sepsis secondary to UTI, Recurrent falls, GI bleed Condition: Stable Critical Care Time: No Referrals: LV LANIER DO [Primary Care Provider] - Follow up/PCP as directed
--- NOTE | 2023-10-05 17:38 | PCM.HP ---
History of Present Illness - Chief Complaint Chief Complaint: fall, uti Date: 10/05/23 History of Present Illness: is a 88 year old female with PMHX of hypertension, coronary artery disease, pulmonary embolism on Eliquis, and chronic issues with balance at her baseline. She presented in the ER with recurrent falls with loss of consciousness from fall this morning. Patient reports she gets lightheaded with standing up and weak all over leading to falls. This morning she fell between her bed and chair, + loss of consciousness for few seconds to minutes. Does not remember hitting her head. She is complaining of some pain in the backs of BL knees and R hip which is there chronically but was complaining of little more today than usual. She has no difficulty movements of hip and knees at all. No shortening or rotation. Denies any chest pain palpitations or shortness of breath before or after. Denies any dark stool. No fever or chills reported. Does have history of recurrent UTIs. She was started on Levaquin in ER for UTI as she has several allergies to meds. Gave 1 L NS in ER as lactic acid was 3.4 and repeat 2.4. Will continue with 500ml fluid bolus d/t heart hx. Started on PPI for anemia and + occult stool. She denies any recent dark or bloody stools. General surgery consulted. Trend HGB. She denies CP, SOB, abd. pain, N/V/D. - Review of Systems Constitutional: Weakness, No Fever, No Chills Eyes: No Symptoms Ears, Nose, & Throat: No Symptoms Respiratory: Short Of Breath (with walking in the morning), No Cough Cardiac: No Chest Pain, No Edema, No Syncope Abdominal/Gastrointestinal: No Abdominal Pain, No Nausea, No Vomiting, No Diarrhea Genitourinary Symptoms: No Dysuria Musculoskeletal: Joint Pain, No Back Pain, No Neck Pain Skin: No Rash Neurological: No Dizziness, No Focal Weakness, No Sensory Changes Psychological: No Symptoms Endocrine: No Symptoms Hematologic/Lymphatic: No Symptoms Immunological/Allergic: No Symptoms Medications & Allergies Home Medications: Home Medication List Aspirin 81 mg PO HS 04/04/13 [History Confirmed 10/05/23] Glipizide 2.5 mg [Glucotrol Xl 2.5 MG] 2.5 mg PO DAILY 01/16/14 [History Confirmed 10/05/23] Isosorbide Mononitrate 30 mg [Imdur 30 MG] 60 mg PO DAILY 04/04/13 [History Confirmed 10/05/23] Levothyroxine Sodium 112 Mcg [Synthroid 112 Mcg] 88 mcg PO DAILY 04/04/13 [History Confirmed 10/05/23] Metoprolol Tartrate 25 mg PO DAILY PRN PRN 04/04/13 [History Confirmed 10/05/23] Omeprazole 20 MG [Prilosec 20 mg] 20 mg PO DAILY 04/04/13 [History Confirmed 10/05/23] Apixaban [Eliquis] 2.5 mg PO BID 07/26/20 [History Confirmed 10/05/23] Atorvastatin Calcium [Lipitor 40Mg] 81 mg PO DAILY 07/26/20 [History Confirmed 10/05/23] Olmesartan Medoxomil [Benicar] 40 mg PO DAILY 07/26/20 [History Confirmed 10/05/23] Cyanocobalamin (Vitamin B-12) [Vitamin B-12] 1,000 mcg PO HS 08/19/22 [History Confirmed 10/05/23] Docusate Sodium [Colace] 1 tab PO DAILY 08/19/22 [History Confirmed 10/05/23] L.acidoph,Paracasei, B.lactis [Probiotic] 1 cap PO HS 08/19/22 [History C onfirmed 10/05/23] Beta-Carotene(A) W-C & E/Min [Ocuvite Tablet] 1 tab PO HS 06/09/23 [History Confirmed 10/05/23] Paroxetine HCl 20 mg [Paxil 20 MG] 20 mg PO DAILY 06/09/23 [History Confir med 10/05/23] Allergies/Adverse Reactions: Allergies Allergy/AdvReac Type Severity Reaction Status Date / Time penicillin G Allergy Verified 10/05/23 17:13 hydrocodone bitartrate AdvReac Verified 10/05/23 17:13 [From Wishon] lisinopril AdvReac Verified 10/05/23 17:13 procainamide HCl AdvReac Verified 10/05/23 17:13 [From Pronestyl] PRESANTINE Allergy Uncoded 10/05/23 17:13 - Past Medical History Past Medical History: Yes Neurological History: No Pertinent History, TIA ENT History: Cataracts Cardiac History: High Cholesterol, Hypertension Respiratory History: No Pertinent History Endocrine Medical History: Diabetes Type II, Hypothyroidism Musculoskelatal History: Fractures, Osteoarthritis GI Medical History: GERD, Gallbladder Disease History: No Pertinent History Pyscho-Social History: No Pertinent History Reproductive Disorders: No Pertinent History Comment: L ankle fracture with hardware - Past Surgical History Past Surgical History: Yes Neuro Surgical History: No Pertinent History Cardiac History: No Pertinent History Respiratory Surgery: No Pertinent History GI Surgical History: Cholecystectomy Genitourinary Surgical Hx: No Pertinent History Musculskeletal Surgical Hx: Joint Replacement Female Surgical History: Dilation & Curettage, Other Other Surgical History: bilat knee replacement, breast biopsies, ARTERECTOMY- CAROTID - Social History Smoking Status: Never smoker Exposure to second hand smoke: No Alcohol: None Drug Use: none - Social Determinants of Health Will the patient participate in the screening: Yes Do you worry about a steady place to live?: No Do you have any problems with any of the following?: No known problems In the past 12 months,have you had to go without utilities?: No Have you or anyone in your house had to go without enough: No Transportation Issues: No Has anyone in your support network made you feel unsafe?: No - Physical Exam Vital Signs: Vital Signs - 24 hr Temp Pulse Resp BP BP Pulse Ox 10/05/23 16:56 97 10/05/23 16:30 72 19 144/62 97 10/05/23 16:00 75 14 90/75 95 10/05/23 15:30 75 18 134/61 96 10/05/23 14:30 77 16 117/54 94 L 10/05/23 14:00 75 13 117/57 94 L 10/05/23 13:41 78 18 112/58 92 L 10/05/23 13:00 98 H 18 113/64 94 L 10/05/23 12:42 80 16 105/60 95 10/05/23 12:41 80 17 107/53 96 10/05/23 12:30 79 16 96/51 97 10/05/23 12:00 80 16 95/47 97 10/05/23 11:30 72 17 109/51 96 10/05/23 11:27 82 17 92/49 94 L 10/05/23 11:23 97.4 F 80 20 92/49 94 L General Appearance: no apparent distress, alert Neurologic Exam: alert, oriented x 3, cooperative, normal mood/affect, nml cerebellar function, nml station & gait, sensation nml, motor weakness, No motor deficits Eye Exam: PERRL/EOMI, eyes nml inspection Ears, Nose, Throat Exam: normal ENT inspection, TMs normal, pharynx normal, moist mucous membranes Neck Exam: normal inspection, non-tender, supple, full range of motion Respiratory Exam: normal breath sounds, lungs clear, No respiratory distress Cardiovascular Exam: regular rate/rhythm, normal heart sounds, normal peripheral pulses Gastrointestinal/Abdomen Exam: soft, normal bowel sounds, No tenderness, No mass Back Exam: normal inspection, normal range of motion, No CVA tenderness, No vertebral tenderness Extremity Exam: normal inspection, normal range of motion, pelvis stable Skin Exam: normal color, warm, dry, pale, No rash Lymphatic Exam: No adenopathy Results - Labs Lab/Micro Results: Lab Results-Last 24 Hours 10/05/23 10/05/23 10/05/23 Range/Units 12:39 12:39 12:39 WBC 9.7 (3.98-10.04) x10^3/uL RBC 3.33 L (3.93-5.22) x10^6/uL Hgb 9.0 L (11.2-15.7) g/dL Hct 29.6 L (34.1-44.9) % MCV 88.9 (79.4-94.8) fL MCH 27.0 (25.6-32.2) pg MCHC 30.4 L (32.2-35.5) g/dL RDW 15.6 H (11.7-14.4) % Plt Count 317 (182-369) x10^3/uL MPV 9.2 L (9.4-12.3) fL Gran % 77.2 H (34.0-71.1) % Immature Gran % (Auto) 0.6 H (0.001-0.429) % Nucleat RBC Rel Count 0.0 (0.00-0.2) % Eos # (Auto) 0.08 (0.04-0.36) x10^3/uL Immature Gran # (Auto) 0.06 H (0.001-0.031) x10^3u/L Absolute Lymphs (auto) 1.38 (1.18-3.74) x10^3/uL Absolute Monos (auto) 0.68 (0.24-0.86) x10^3/uL Absolute Nucleated RBC 0.00 (0.00-0.012) x10^3u/L Lymphocytes % 14.2 L (19.3-51.7) % Monocytes % 7.0 (4.7-12.5) % Eosinophils % 0.8 (0.7-5.8) % Basophils % 0.2 (0.1-1.2) % Absolute Granulocytes 7.52 H (1.56-6.13) x10^3/uL Basophils # 0.02 (0.01-0.08) x10^3/uL Sodium 137 (135-145) mmol/L Potassium 5.0 (3.5-5.1) mmol/L Chloride 101 (98-107) mmol/L Carbon Dioxide 28 (22-30) mmol/L Anion Gap 12.2 (5-15) MEQ/L BUN 28 H (7-17) mg/dL Creatinine 0.94 (0.52-1.04) mg/dL Estimated GFR 59.1 ML/MIN Glucose 274 H (74-106) mg/dL Lactic Acid (0.4-2.0) Calcium 9.7 (8.4-10.2) mg/dL Magnesium 1.7 (1.6-2.3) mg/dL Total Bilirubin 0.40 (0.2-1.3) mg/dL AST 33 (14-36) U/L ALT 23 (0-35) U/L Alkaline Phosphatase 98 (38-126) U/L Troponin I < 0.012 (0.000-0.033) ng/mL Serum Total Protein 6.0 L (6.3-8.2) g/dL Albumin 3.5 (3.5-5.0) g/dL Lipase 118 (23-300) U/L Urine Color (Yellow) Urine Appearance (Clear) Urine pH (4.6-8.0) Ur Specific [place] (1.005-1.030) Urine Protein (Negative) Urine Glucose (UA) (Negative) mg/dL Urine Ketones (Negative) Urine Blood (Negative) Urine Nitrite (Negative) Urine Bilirubin (Negative) Urine Urobilinogen (0.2) mg/dL Ur Leukocyte Esterase (Negative) U Hyaline Cast (Auto) (0-2) /LPF Urine Microscopic RBC (0-5) /HPF Urine Microscopic WBC (0-5) /HPF Ur Epithelial Cells (None Seen) /HPF Calcium Oxalate Crystal (None Seen) /HPF Urine Bacteria (None Seen) /HPF Urine Culture Reflexed (NO) Stl Occult Blood (IFOB) (NEGATIVE) 10/05/23 10/05/23 10/05/23 Range/Units 12:53 14:53 14:59 WBC (3.98-10.04) x10^3/uL RBC (3.93-5.22) x10^6/uL Hgb (11.2-15.7) g/dL Hct (34.1-44.9) % MCV (79.4-94.8) fL MCH (25.6-32.2) pg MCHC (32.2-35.5) g/dL RDW (11.7-14.4) % Plt Count (182-369) x10^3/uL MPV (9.4-12.3) fL Gran % (34.0-71.1) % Immature Gran % (Auto) (0.001-0.429) % Nucleat RBC Rel Count (0.00-0.2) % Eos # (Auto) (0.04-0.36) x10^3/uL Immature Gran # (Auto) (0.001-0.031) x10^3u/L Absolute Lymphs (auto) (1.18-3.74) x10^3/uL Absolute Monos (auto) (0.24-0.86) x10^3/uL Absolute Nucleated RBC (0.00-0.012) x10^3u/L Lymphocytes % (19.3-51.7) % Monocytes % (4.7-12.5) % Eosinophils % (0.7-5.8) % Basophils % (0.1-1.2) % Absolute Granulocytes (1.56-6.13) x10^3/uL Basophils # (0.01-0.08) x10^3/uL Sodium (135-145) mmol/L Potassium (3.5-5.1) mmol/L Chloride (98-107) mmol/L Carbon Dioxide (22-30) mmol/L Anion Gap (5-15) MEQ/L BUN (7-17) mg/dL Creatinine (0.52-1.04) mg/dL Estimated GFR ML/MIN Glucose (74-106) mg/dL Lactic Acid 3.4 H 2.4 H (0.4-2.0) Calcium (8.4-10.2) mg/dL Magnesium (1.6-2.3) mg/dL Total Bilirubin (0.2-1.3) mg/dL AST (14-36) U/L ALT (0-35) U/L Alkaline Phosphatase (38-126) U/L Troponin I (0.000-0.033) ng/mL Serum Total Protein (6.3-8.2) g/dL Albumin (3.5-5.0) g/dL Lipase (23-300) U/L Urine Color Dark Yellow A (Yellow) Urine Appearance Cloudy A (Clear) Urine pH 5.5 (4.6-8.0) Ur Specific [place] 1.020 (1.005-1.030) Urine Protein 30 (Negative) Urine Glucose (UA) Negative (Negative) mg/dL Urine Ketones Trace A (Negative) Urine Blood Large A (Negative) Urine Nitrite Negative (Negative) Urine Bilirubin Negative (Negative) Urine Urobilinogen 1.0 A (0.2) mg/dL Ur Leukocyte Esterase Moderate A (Negative) U Hyaline Cast (Auto) None Seen (0-2) /LPF Urine Microscopic RBC >100 A (0-5) /HPF Urine Microscopic WBC 21-50 A (0-5) /HPF Ur Epithelial Cells Few (None Seen) /HPF Calcium Oxalate Crystal 3-5 A (None Seen) /HPF Urine Bacteria Few A (None Seen) /HPF Urine Culture Reflexed YES (NO) Stl Occult Blood (IFOB) (NEGATIVE) 10/05/23 10/05/23 Range/Units 15:07 16:12 WBC (3.98-10.04) x10^3/uL RBC (3.93-5.22) x10^6/uL Hgb (11.2-15.7) g/dL Hct (34.1-44.9) % MCV (79.4-94.8) fL MCH (25.6-32.2) pg MCHC (32.2-35.5) g/dL RDW (11.7-14.4) % Plt Count (182-369) x10^3/uL MPV (9.4-12.3) fL Gran % (34.0-71.1) % Immature Gran % (Auto) (0.001-0.429) % Nucleat RBC Rel Count (0.00-0.2) % Eos # (Auto) (0.04-0.36) x10^3/uL Immature Gran # (Auto) (0.001-0.031) x10^3u/L Absolute Lymphs (auto) (1.18-3.74) x10^3/uL Absolute Monos (auto) (0.24-0.86) x10^3/uL Absolute Nucleated RBC (0.00-0.012) x10^3u/L Lymphocytes % (19.3-51.7) % Monocytes % (4.7-12.5) % Eosinophils % (0.7-5.8) % Basophils % (0.1-1.2) % Absolute Granulocytes (1.56-6.13) x10^3/uL Basophils # (0.01-0.08) x10^3/uL Sodium (135-145) mmol/L Potassium (3.5-5.1) mmol/L Chloride (98-107) mmol/L Carbon Dioxide (22-30) mmol/L Anion Gap (5-15) MEQ/L BUN (7-17) mg/dL Creatinine (0.52-1.04) mg/dL Estimated GFR ML/MIN Glucose (74-106) mg/dL Lactic Acid (0.4-2.0) Calcium (8.4-10.2) mg/dL Magnesium (1.6-2.3) mg/dL Total Bilirubin (0.2-1.3) mg/dL AST (14-36) U/L ALT (0-35) U/L Alkaline Phosphatase (38-126) U/L Troponin I < 0.012 (0.000-0.033) ng/mL Serum Total Protein (6.3-8.2) g/dL Albumin (3.5-5.0) g/dL Lipase (23-300) U/L Urine Color (Yellow) Urine Appearance (Clear) Urine pH (4.6-8.0) Ur Specific [place] (1.005-1.030) Urine Protein (Negative) Urine Glucose (UA) (Negative) mg/dL Urine Ketones (Negative) Urine Blood (Negative) Urine Nitrite (Negative) Urine Bilirubin (Negative) Urine Urobilinogen (0.2) mg/dL Ur Leukocyte Esterase (Negative) U Hyaline Cast (Auto) (0-2) /LPF Urine Microscopic RBC (0-5) /HPF Urine Microscopic WBC (0-5) /HPF Ur Epithelial Cells (None Seen) /HPF Calcium Oxalate Crystal (None Seen) /HPF Urine Bacteria (None Seen) /HPF Urine Culture Reflexed (NO) Stl Occult Blood (IFOB) POSITIVE A (NEGATIVE) - Radiology Impressions Radiology Exams & Impressions: Radiology Procedures Category Date Time Status CERVICAL SPINE WO CONTRAST [CT] Stat Exams 10/05/23 12:36 Completed CHEST 1 VIEW (PORTABLE) Stat Exams 10/05/23 12:37 Completed HEAD WITHOUT CONTRAST [CT] Stat Exams 10/05/23 12:36 Completed - Other Procedures and Tests Respiratory Therapy 10/05/23 17:10 Respiratory Therapy Consult ONCE Assessment/Plan (1) Sepsis secondary to UTI Current Visit: Yes Status: Acute Assessment & Plan: - UC and BC pending - Lactic acid elevated in ER at 4.2- 1L fluid bolus gave IV - Repeat LA 3.4- 500ml fluid bolus ordered d/t heart hx - Trend LA level - HR > 90 - +Weakness Code(s): A41.9 - SEPSIS, UNSPECIFIED ORGANISM; N39.0 - URINARY TRACT INFECTION, SITE NOT SPECIFIED (2) Anemia Current Visit: Yes Status: Acute Assessment & Plan: - iron panel - + occult stool in ER - Surgical consult - NPO after midnight - Hgb 9.0- dropped from most recent labs reviewed - pt denies dark or tarry stools Code(s): D64.9 - ANEMIA, UNSPECIFIED (3) GI bleed Current Visit: Yes Status: Acute Assessment & Plan: - protonix IV - NPO after midnight - trend hgb - GS consult - + occult stool - Eliquis held Code(s): K92.2 - GASTROINTESTINAL HEMORRHAGE, UNSPECIFIED (4) Recurrent falls Current Visit: Yes Status: Acute Assessment & Plan: - PT/ OT eval - consdier placement - Lives alone - Daughter lives nearby Code(s): R29.6 - REPEATED FALLS (5) Syncope and collapse Current Visit: Yes Status: Acute Assessment & Plan: - + LOC with fall. - CT head: Impression: Again nonacute senile brain with remote lacunar infarct right basal ganglia. - CT cervical spine: Impression: Again cervical lordotic reversal, osteopenia, multilevel degenerative spondylosis, multilevel minimal spondylolisthesis, and arteriosclerotic disease. No new/acute findings. - CXR: Impression: Nonacute chest with chronic features. - Trop x2 negative- trend - 2:2 UTI, anemia Code(s): R55 - SYNCOPE AND COLLAPSE (6) Acute UTI Current Visit: No Status: Acute Assessment & Plan: - Levaquin IV - UC pending Code(s): N39.0 - URINARY TRACT INFECTION, SITE NOT SPECIFIED (7) DM2 (diabetes mellitus, type 2) Current Visit: No Status: Chronic Qualifiers: Diabetes mellitus senior care insulin use: without tank terminal gauger use Diabetes mellitus complication status: without complication Qualified Code(s): E11.9 - Type 2 diabetes mellitus without complications Assessment & Plan: - A1C - Oral controlled (8) HTN (hypertension) Current Visit: No Status: Chronic Assessment & Plan: - Continue home meds - BP well controlled - monitor VTE: Eliqus held d/t GI bleed, SCD's PPI: Protonix Next of KIN: Sol Herrera- daughter D/c plan: 1-2 days Code status: Full Code(s): I10 - ESSENTIAL (PRIMARY) HYPERTENSION Telemedicine Encounter - Telemedicine Encounter Telemedicine Encounter: "The entirety of this encounter was performed via Telemedicine" This visit was performed using real-time audio and video connection between my location and thepatients locationwith the assistance of a surrogateat the patients location. Written or verbal consent was obtained from the patient/guardian to perform this [facility]. Any patient questions regarding the telemedicine interaction were answered.
[2023-10-05] MEDS ORDERED: Compazine 10 MG/2 ML IM PRN (17:50)
[2023-10-05 19:17] LABS: Iron 37 ug/dL (37-170); Iron Saturation 10 % (20-39); TIBC 367 ug/dL (265-462)
[2023-10-05 20:06] LABS: Ferritin 9.32 ng/mL (11.1-264); Folate (Folic Acid) > 16.6 ng/mL (2.76 - >20); Vitamin B12 887 pg/mL (239-931)
[2023-10-05] MEDS: PROTONIX 40 MG IV IV SCH (20:33)
[2023-10-05] MEDS: Sodium Chloride 0.9% 500 ML 500 ML IV ONE (20:37)
[2023-10-05] MEDS: ECOTRIN 81 MG PO SCH (22:29)
[2023-10-05] MEDS: Vitamin B-12 500 MCG PO SCH (22:29)
[2023-10-05] MEDS: Ocuvite Tablet PO SCH (22:29)
[2023-10-06] MEDS: TYLENOL 325 MG PO PRN (00:14)
[2023-10-06] MEDS: NON-FORMULARY ITEM (Aspirin [Aspirin] 81 MG Tablet) PO SCH (03:12)
[2023-10-06] MEDS: NON-FORMULARY ITEM (L.Acidoph,Paracasei, B.Lactis [Probiotic] 1 EACH Capsule) PO SCH (03:12)
[2023-10-06] MEDS: NON-FORMULARY ITEM (Cyanocobalamin (Vitamin B-12) [Vitamin B-12] 1,000 MCG Capsule) PO SCH (03:12)
[2023-10-06] MEDS: Acidophilus TABLET PO SCH ×2 (03:12→21:23)
[2023-10-06 05:03] LABS: Hematocrit 26.7 % (34.1-44.9); Hemoglobin 7.8 g/dL (11.2-15.7); Mean Cell Volume 91.1 fL (79.4-94.8); Mean Corpuscular Hemoglobin 26.6 pg (25.6-32.2); Mean Corpuscular Hgb Concent. 29.2 g/dL (32.2-35.5); Mean Platelet Volume 10.4 fL (9.4-12.3); Platelet Count 233 x10^3/uL (182-369); Red Blood Count 2.93 x10^6/uL (3.93-5.22); Red Cell Distribution Width 15.9 % (11.7-14.4); White Blood Count 6.9 x10^3/uL (3.98-10.04)
[2023-10-06 05:29] LABS: ALBUMIN 2.9 g/dL (3.5-5.0); BILIRUBIN,TOTAL 0.5 mg/dL (0.2-1.3); Creatinine 1 0.86 mg/dL (0.52-1.04); EST GLOMERULAR FILTRATION RATE 65.8 ML/MIN; Potassium 4.3 mmol/L (3.5-5.1); Total Protein 5.3 g/dL (6.3-8.2)
[2023-10-06] MEDS ORDERED: Lopressor 25MG Tab PO PRN (07:11)
[2023-10-06] MEDS: Glucotrol Xl 2.5 MG PO SCH (08:16)
[2023-10-06] MEDS ORDERED: Paxil 20 MG ONE (08:56)
[2023-10-06] MEDS ORDERED: Imdur 60MG PO ONE (08:56)
[2023-10-06] MEDS ORDERED: Benicar 20 MG ONE (08:56)
[2023-10-06] MEDS ORDERED: Protonix 40MG Tablet ONE (08:56)
[2023-10-06] MEDS ORDERED: Docusate Sodium 100 MG ONE (08:57)
[2023-10-06] MEDS ORDERED: ZOCOR 20MG ONE (08:57)
[2023-10-06] MEDS ORDERED: FEOSOL 325 MG ONE (08:57)
[2023-10-06] MEDS: ZOCOR 20MG PO SCH (09:02)
[2023-10-06] MEDS: Imdur 60MG PO SCH (09:02)
[2023-10-06] MEDS: FEOSOL 325 MG PO SCH (09:03)
[2023-10-06] MEDS: Docusate Sodium 100 MG PO SCH (09:03)
[2023-10-06] MEDS: Protonix 40MG Tablet PO SCH (09:04)
[2023-10-06] MEDS: Paxil 20 MG PO SCH (09:04)
[2023-10-06] MEDS: SYNTHROID 88 MCG PO SCH (09:05)
[2023-10-06] MEDS: Levaquin 250MG/50ML D5W 250 MG/50 ML BAG IV SCH (09:08)
[2023-10-06] MEDS: Benicar 20 MG PO SCH (09:20)
[2023-10-06] MEDS: Prozac 20 MG PO SCH (10:16)
--- NOTE | 2023-10-06 11:14 | PCM.NOTE ---
Date and Time: 10/06/23 1105 Subjective Assessment: 10/05/23 is a 88 year old female with PMHX of hypertension, coronary artery disease, pulmonary embolism on Eliquis, and chronic issues with balance at her baseline. She presented in the ER with recurrent falls with loss of consciousness from fall this morning. Patient reports she gets lightheaded with standing up and weak all over leading to falls. This morning she fell between her bed and chair, + loss of consciousness for few seconds to minutes. Does not remember hitting her head. She is complaining of some pain in the backs of BL knees and R hip which is there chronically but was complaining of little more today than usual. She has no difficulty movements of hip and knees at all. No shortening or rotation. Denies any chest pain palpitations or shortness of breath before or after. Denies any dark stool. No fever or chills reported. Does have history of recurrent UTIs. She was started on Levaquin in ER for UTI as she has several allergies to meds. Gave 1 L NS in ER as lactic acid was 3.4 and repeat 2.4. Will continue with 500ml fluid bolus d/t heart hx. Started on PPI for anemia and + occult stool. She denies any recent dark or bloody stools. General surgery consulted. Trend HGB. She denies CP, SOB, abd. pain, N/V/D. 10/06/23 Pt resting in bed. She continues to have increased pain in BL knees. Daughter did not want XR's done. Pt has no swelling or edema of Knees. Rates pain 5/10 with tylenol. Hgb 7.8 today. Yesterday was 9.0. GS consulted yesterday and they explained it would be Monday or Monday before EGD/ Colonoscpy could be done. 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 Nurse did a throughout evaluation today of pt's body d/t hx of multiple falls n the last 2 weeks and no bruising found. Pt reports she has only been eating cereal at home as she is so SOB when walking and standing. Therefore she cannot stand to make meal. Echo and BNP ordered. She denies CP, SOB when laying, Abd. pain, N/V/D. - Review of Systems Constitutional: Weakness, No Fever, No Chills Eyes: No Symptoms Ears, Nose, & Throat: No Symptoms Respiratory: No Cough, No Short Of Breath Cardiac: No Chest Pain, No Edema, No Syncope Abdominal/Gastrointestinal: No Abdominal Pain, No Nausea, No Vomiting, No Diarrhea Genitourinary Symptoms: No Dysuria Musculoskeletal: Joint Pain (BL knee pain), No Back Pain, No Neck Pain Skin: No Rash Neurological: No Dizziness, No Focal Weakness, No Sensory Changes Psychological: No Symptoms Endocrine: No Symptoms Hematologic/Lymphatic: No Symptoms Immunological/Allergic: No Symptoms Objective Exam General Appearance: no apparent distress, alert Neurologic Exam: alert, oriented x 3, cooperative, normal mood/affect, nml cerebellar function, sensation nml, motor weakness, No motor deficits Skin Exam: normal color, warm, dry, pale Eye Exam: PERRL, EOMI, eyes nml inspection Ears, Nose, Throat Exam: normal ENT inspection, pharynx normal, moist mucous membranes Neck Exam: normal inspection, non-tender, supple, full range of motion Respiratory Exam: normal breath sounds, lungs clear, No respiratory distress Cardiovascular Exam: regular rate/rhythm, normal heart sounds Gastrointestinal/Abdomen Exam: soft, No tenderness, No mass Extremity Exam: normal inspection, normal range of motion Back Exam: normal inspection, normal range of motion, No CVA tenderness, No vertebral tenderness Pelvic Exam: deferred Rectal Exam: deferred Objective Data Vital Signs: Vital Signs - 24 hr Temp Pulse Resp BP BP Pulse Ox 10/06/23 08:00 98.6 F 64 18 108/54 95 10/06/23 04:00 97.5 F 68 16 133/63 96 10/05/23 23:45 97.5 F 85 16 142/65 96 10/05/23 20:00 97.7 F 79 18 116/57 94 L 10/05/23 19:00 80 18 95 10/05/23 17:42 96.9 F 80 16 156/70 96 10/05/23 16:56 97 10/05/23 16:30 72 19 144/62 97 10/05/23 16:00 75 14 90/75 95 10/05/23 15:30 75 18 134/61 96 10/05/23 14:30 77 16 117/54 94 L 10/05/23 14:00 75 13 117/57 94 L 10/05/23 13:41 78 18 112/58 92 L 10/05/23 13:00 98 H 18 113/64 94 L 10/05/23 12:42 80 16 105/60 95 10/05/23 12:41 80 17 107/53 96 10/05/23 12:30 79 16 96/51 97 10/05/23 12:00 80 16 95/47 97 10/05/23 11:30 72 17 109/51 96 10/05/23 11:27 82 17 92/49 94 L 10/05/23 11:23 97.4 F 80 20 92/49 94 L Pain Assessment - Last Documented Pain Intensity 5 Pain Scale Used 0-10 Pain Scale Intake and Output: Intake & Output 10/03/23 10/04/23 10/05/23 10/06/23 11:59 11:59 11:59 11:59 Intake Total 320 Output Total 600 Balance -280 Weight 71.668 kg 71.7 kg Lab Results: Lab Results-Last 24 Hours 10/05/23 10/05/23 10/05/23 Range/Units 12:39 12:39 12:39 WBC 9.7 (3.98-10.04) x10^3/uL RBC 3.33 L (3.93-5.22) x10^6/uL Hgb 9.0 L (11.2-15.7) g/dL Hct 29.6 L (34.1-44.9) % MCV 88.9 (79.4-94.8) fL MCH 27.0 (25.6-32.2) pg MCHC 30.4 L (32.2-35.5) g/dL RDW 15.6 H (11.7-14.4) % Plt Count 317 (182-369) x10^3/uL MPV 9.2 L (9.4-12.3) fL Gran % 77.2 H (34.0-71.1) % Immature Gran % (Auto) 0.6 H (0.001-0.429) % Nucleat RBC Rel Count 0.0 (0.00-0.2) % Eos # (Auto) 0.08 (0.04-0.36) x10^3/uL Immature Gran # (Auto) 0.06 H (0.001-0.031) x10^3u/L Absolute Lymphs (auto) 1.38 (1.18-3.74) x10^3/uL Absolute Monos (auto) 0.68 (0.24-0.86) x10^3/uL Absolute Nucleated RBC 0.00 (0.00-0.012) x10^3u/L Lymphocytes % 14.2 L (19.3-51.7) % Monocytes % 7.0 (4.7-12.5) % Eosinophils % 0.8 (0.7-5.8) % Basophils % 0.2 (0.1-1.2) % Absolute Granulocytes 7.52 H (1.56-6.13) x10^3/uL Basophils # 0.02 (0.01-0.08) x10^3/uL Sodium 137 (135-145) mmol/L Potassium 5.0 (3.5-5.1) mmol/L Chloride 101 (98-107) mmol/L Carbon Dioxide 28 (22-30) mmol/L Anion Gap 12.2 (5-15) MEQ/L BUN 28 H (7-17) mg/dL Creatinine 0.94 (0.52-1.04) mg/dL Estimated GFR 59.1 ML/MIN Glucose 274 H (74-106) mg/dL POC Glucometer (74 to 106) mg/dL Hemoglobin A1c (4.5-6.0) % Lactic Acid (0.4-2.0) Calcium 9.7 (8.4-10.2) mg/dL Magnesium 1.7 (1.6-2.3) mg/dL Iron (37-170) ug/dL TIBC (265-462) ug/dL Iron Saturation (20-39) % Ferritin (11.1-264) ng/mL Total Bilirubin 0.40 (0.2-1.3) mg/dL AST 33 (14-36) U/L ALT 23 (0-35) U/L Alkaline Phosphatase 98 (38-126) U/L Troponin I < 0.012 (0.000-0.033) ng/mL Serum Total Protein 6.0 L (6.3-8.2) g/dL Albumin 3.5 (3.5-5.0) g/dL Lipase 118 (23-300) U/L Vitamin B12 (239-931) pg/mL Folic Acid (2.76 - >20) ng/mL Urine Color (Yellow) Urine Appearance (Clear) Urine pH (4.6-8.0) Ur Specific [place] (1.005-1.030) Urine Protein (Negative) Urine Glucose (UA) (Negative) mg/dL Urine Ketones (Negative) Urine Blood (Negative) Urine Nitrite (Negative) Urine Bilirubin (Negative) Urine Urobilinogen (0.2) mg/dL Ur Leukocyte Esterase (Negative) U Hyaline Cast (Auto) (0-2) /LPF Urine Microscopic RBC (0-5) /HPF Urine Microscopic WBC (0-5) /HPF Ur Epithelial Cells (None Seen) /HPF Calcium Oxalate Crystal (None Seen) /HPF Urine Bacteria (None Seen) /HPF Urine Culture Reflexed (NO) Stl Occult Blood (IFOB) (NEGATIVE) 10/05/23 10/05/23 10/05/23 Range/Units 12:53 14:53 14:59 WBC (3.98-10.04) x10^3/uL RBC (3.93-5.22) x10^6/uL Hgb (11.2-15.7) g/dL Hct (34.1-44.9) % MCV (79.4-94.8) fL MCH (25.6-32.2) pg MCHC (32.2-35.5) g/dL RDW (11.7-14.4) % Plt Count (182-369) x10^3/uL MPV (9.4-12.3) fL Gran % (34.0-71.1) % Immature Gran % (Auto) (0.001-0.429) % Nucleat RBC Rel Count (0.00-0.2) % Eos # (Auto) (0.04-0.36) x10^3/uL Immature Gran # (Auto) (0.001-0.031) x10^3u/L Absolute Lymphs (auto) (1.18-3.74) x10^3/uL Absolute Monos (auto) (0.24-0.86) x10^3/uL Absolute Nucleated RBC (0.00-0.012) x10^3u/L Lymphocytes % (19.3-51.7) % Monocytes % (4.7-12.5) % Eosinophils % (0.7-5.8) % Basophils % (0.1-1.2) % Absolute Granulocytes (1.56-6.13) x10^3/uL Basophils # (0.01-0.08) x10^3/uL Sodium (135-145) mmol/L Potassium (3.5-5.1) mmol/L Chloride (98-107) mmol/L Carbon Dioxide (22-30) mmol/L Anion Gap (5-15) MEQ/L BUN (7-17) mg/dL Creatinine (0.52-1.04) mg/dL Estimated GFR ML/MIN Glucose (74-106) mg/dL POC Glucometer (74 to 106) mg/dL Hemoglobin A1c (4.5-6.0) % Lactic Acid 3.4 H 2.4 H (0.4-2.0) Calcium (8.4-10.2) mg/dL Magnesium (1.6-2.3) mg/dL Iron (37-170) ug/dL TIBC (265-462) ug/dL Iron Saturation (20-39) % Ferritin (11.1-264) ng/mL Total Bilirubin (0.2-1.3) mg/dL AST (14-36) U/L ALT (0-35) U/L Alkaline Phosphatase (38-126) U/L Troponin I (0.000-0.033) ng/mL Serum Total Protein (6.3-8.2) g/dL Albumin (3.5-5.0) g/dL Lipase (23-300) U/L Vitamin B12 (239-931) pg/mL Folic Acid (2.76 - >20) ng/mL Urine Color Dark Yellow A (Yellow) Urine Appearance Cloudy A (Clear) Urine pH 5.5 (4.6-8.0) Ur Specific [place] 1.020 (1.005-1.030) Urine Protein 30 (Negative) Urine Glucose (UA) Negative (Negative) mg/dL Urine Ketones Trace A (Negative) Urine Blood Large A (Negative) Urine Nitrite Negative (Negative) Urine Bilirubin Negative (Negative) Urine Urobilinogen 1.0 A (0.2) mg/dL Ur Leukocyte Esterase Moderate A (Negative) U Hyaline Cast (Auto) None Seen (0-2) /LPF Urine Microscopic RBC >100 A (0-5) /HPF Urine Microscopic WBC 21-50 A (0-5) /HPF Ur Epithelial Cells Few (None Seen) /HPF Calcium Oxalate Crystal 3-5 A (None Seen) /HPF Urine Bacteria Few A (None Seen) /HPF Urine Culture Reflexed YES (NO) Stl Occult Blood (IFOB) (NEGATIVE) 10/05/23 10/05/23 10/05/23 Range/Units 15:07 16:12 18:00 WBC (3.98-10.04) x10^3/uL RBC (3.93-5.22) x10^6/uL Hgb (11.2-15.7) g/dL Hct (34.1-44.9) % MCV (79.4-94.8) fL MCH (25.6-32.2) pg MCHC (32.2-35.5) g/dL RDW (11.7-14.4) % Plt Count (182-369) x10^3/uL MPV (9.4-12.3) fL Gran % (34.0-71.1) % Immature Gran % (Auto) (0.001-0.429) % Nucleat RBC Rel Count (0.00-0.2) % Eos # (Auto) (0.04-0.36) x10^3/uL Immature Gran # (Auto) (0.001-0.031) x10^3u/L Absolute Lymphs (auto) (1.18-3.74) x10^3/uL Absolute Monos (auto) (0.24-0.86) x10^3/uL Absolute Nucleated RBC (0.00-0.012) x10^3u/L Lymphocytes % (19.3-51.7) % Monocytes % (4.7-12.5) % Eosinophils % (0.7-5.8) % Basophils % (0.1-1.2) % Absolute Granulocytes (1.56-6.13) x10^3/uL Basophils # (0.01-0.08) x10^3/uL Sodium (135-145) mmol/L Potassium (3.5-5.1) mmol/L Chloride (98-107) mmol/L Carbon Dioxide (22-30) mmol/L Anion Gap (5-15) MEQ/L BUN (7-17) mg/dL Creatinine (0.52-1.04) mg/dL Estimated GFR ML/MIN Glucose (74-106) mg/dL POC Glucometer (74 to 106) mg/dL Hemoglobin A1c (4.5-6.0) % Lactic Acid (0.4-2.0) Calcium (8.4-10.2) mg/dL Magnesium (1.6-2.3) mg/dL Iron (37-170) ug/dL TIBC (265-462) ug/dL Iron Saturation (20-39) % Ferritin 9.32 L (11.1-264) ng/mL Total Bilirubin (0.2-1.3) mg/dL AST (14-36) U/L ALT (0-35) U/L Alkaline Phosphatase (38-126) U/L Troponin I < 0.012 (0.000-0.033) ng/mL Serum Total Protein (6.3-8.2) g/dL Albumin (3.5-5.0) g/dL Lipase (23-300) U/L Vitamin B12 887 (239-931) pg/mL Folic Acid > 16.6 (2.76 - >20) ng/mL Urine Color (Yellow) Urine Appearance (Clear) Urine pH (4.6-8.0) Ur Specific [place] (1.005-1.030) Urine Protein (Negative) Urine Glucose (UA) (Negative) mg/dL Urine Ketones (Negative) Urine Blood (Negative) Urine Nitrite (Negative) Urine Bilirubin (Negative) Urine Urobilinogen (0.2) mg/dL Ur Leukocyte Esterase (Negative) U Hyaline Cast (Auto) (0-2) /LPF Urine Microscopic RBC (0-5) /HPF Urine Microscopic WBC (0-5) /HPF Ur Epithelial Cells (None Seen) /HPF Calcium Oxalate Crystal (None Seen) /HPF Urine Bacteria (None Seen) /HPF Urine Culture Reflexed (NO) Stl Occult Blood (IFOB) POSITIVE A (NEGATIVE) 10/05/23 10/05/23 10/05/23 Range/Units 18:00 19:00 21:05 WBC (3.98-10.04) x10^3/uL RBC (3.93-5.22) x10^6/uL Hgb (11.2-15.7) g/dL Hct (34.1-44.9) % MCV (79.4-94.8) fL MCH (25.6-32.2) pg MCHC (32.2-35.5) g/dL RDW (11.7-14.4) % Plt Count (182-369) x10^3/uL MPV (9.4-12.3) fL Gran % (34.0-71.1) % Immature Gran % (Auto) (0.001-0.429) % Nucleat RBC Rel Count (0.00-0.2) % Eos # (Auto) (0.04-0.36) x10^3/uL Immature Gran # (Auto) (0.001-0.031) x10^3u/L Absolute Lymphs (auto) (1.18-3.74) x10^3/uL Absolute Monos (auto) (0.24-0.86) x10^3/uL Absolute Nucleated RBC (0.00-0.012) x10^3u/L Lymphocytes % (19.3-51.7) % Monocytes % (4.7-12.5) % Eosinophils % (0.7-5.8) % Basophils % (0.1-1.2) % Absolute Granulocytes (1.56-6.13) x10^3/uL Basophils # (0.01-0.08) x10^3/uL Sodium (135-145) mmol/L Potassium (3.5-5.1) mmol/L Chloride (98-107) mmol/L Carbon Dioxide (22-30) mmol/L Anion Gap (5-15) MEQ/L BUN (7-17) mg/dL Creatinine (0.52-1.04) mg/dL Estimated GFR ML/MIN Glucose (74-106) mg/dL POC Glucometer (74 to 106) mg/dL Hemoglobin A1c (4.5-6.0) % Lactic Acid 1.5 (0.4-2.0) Calcium (8.4-10.2) mg/dL Magnesium (1.6-2.3) mg/dL Iron 37 (37-170) ug/dL TIBC 367 (265-462) ug/dL Iron Saturation 10 L (20-39) % Ferritin (11.1-264) ng/mL Total Bilirubin (0.2-1.3) mg/dL AST (14-36) U/L ALT (0-35) U/L Alkaline Phosphatase (38-126) U/L Troponin I < 0.012 (0.000-0.033) ng/mL Serum Total Protein (6.3-8.2) g/dL Albumin (3.5-5.0) g/dL Lipase (23-300) U/L Vitamin B12 (239-931) pg/mL Folic Acid (2.76 - >20) ng/mL Urine Color (Yellow) Urine Appearance (Clear) Urine pH (4.6-8.0) Ur Specific [place] (1.005-1.030) Urine Protein (Negative) Urine Glucose (UA) (Negative) mg/dL Urine Ketones (Negative) Urine Blood (Negative) Urine Nitrite (Negative) Urine Bilirubin (Negative) Urine Urobilinogen (0.2) mg/dL Ur Leukocyte Esterase (Negative) U Hyaline Cast (Auto) (0-2) /LPF Urine Microscopic RBC (0-5) /HPF Urine Microscopic WBC (0-5) /HPF Ur Epithelial Cells (None Seen) /HPF Calcium Oxalate Crystal (None Seen) /HPF Urine Bacteria (None Seen) /HPF Urine Culture Reflexed (NO) Stl Occult Blood (IFOB) (NEGATIVE) 10/05/23 10/06/23 10/06/23 Range/Units 21:52 04:23 04:23 WBC 6.9 (3.98-10.04) x10^3/uL RBC 2.93 L (3.93-5.22) x10^6/uL Hgb 7.8 L (11.2-15.7) g/dL Hct 26.7 L (34.1-44.9) % MCV 91.1 (79.4-94.8) fL MCH 26.6 (25.6-32.2) pg MCHC 29.2 L (32.2-35.5) g/dL RDW 15.9 H (11.7-14.4) % Plt Count 233 (182-369) x10^3/uL MPV 10.4 (9.4-12.3) fL Gran % (34.0-71.1) % Immature Gran % (Auto) (0.001-0.429) % Nucleat RBC Rel Count (0.00-0.2) % Eos # (Auto) (0.04-0.36) x10^3/uL Immature Gran # (Auto) (0.001-0.031) x10^3u/L Absolute Lymphs (auto) (1.18-3.74) x10^3/uL Absolute Monos (auto) (0.24-0.86) x10^3/uL Absolute Nucleated RBC (0.00-0.012) x10^3u/L Lymphocytes % (19.3-51.7) % Monocytes % (4.7-12.5) % Eosinophils % (0.7-5.8) % Basophils % (0.1-1.2) % Absolute Granulocytes (1.56-6.13) x10^3/uL Basophils # (0.01-0.08) x10^3/uL Sodium 137 (135-145) mmol/L Potassium 4.3 (3.5-5.1) mmol/L Chloride 106 (98-107) mmol/L Carbon Dioxide 23 (22-30) mmol/L Anion Gap 12.0 (5-15) MEQ/L BUN 25 H (7-17) mg/dL Creatinine 0.86 (0.52-1.04) mg/dL Estimated GFR 65.8 ML/MIN Glucose 95 (74-106) mg/dL POC Glucometer 109 H (74 to 106) mg/dL Hemoglobin A1c (4.5-6.0) % Lactic Acid (0.4-2.0) Calcium 9.0 (8.4-10.2) mg/dL Magnesium (1.6-2.3) mg/dL Iron (37-170) ug/dL TIBC (265-462) ug/dL Iron Saturation (20-39) % Ferritin (11.1-264) ng/mL Total Bilirubin 0.50 (0.2-1.3) mg/dL AST 26 (14-36) U/L ALT 13 (0-35) U/L Alkaline Phosphatase 76 (38-126) U/L Troponin I (0.000-0.033) ng/mL Serum Total Protein 5.3 L (6.3-8.2) g/dL Albumin 2.9 L (3.5-5.0) g/dL Lipase (23-300) U/L Vitamin B12 (239-931) pg/mL Folic Acid (2.76 - >20) ng/mL Urine Color (Yellow) Urine Appearance (Clear) Urine pH (4.6-8.0) Ur Specific [place] (1.005-1.030) Urine Protein (Negative) Urine Glucose (UA) (Negative) mg/dL Urine Ketones (Negative) Urine Blood (Negative) Urine Nitrite (Negative) Urine Bilirubin (Negative) Urine Urobilinogen (0.2) mg/dL Ur Leukocyte Esterase (Negative) U Hyaline Cast (Auto) (0-2) /LPF Urine Microscopic RBC (0-5) /HPF Urine Microscopic WBC (0-5) /HPF Ur Epithelial Cells (None Seen) /HPF Calcium Oxalate Crystal (None Seen) /HPF Urine Bacteria (None Seen) /HPF Urine Culture Reflexed (NO) Stl Occult Blood (IFOB) (NEGATIVE) 10/06/23 10/06/23 Range/Units 04:23 07:22 WBC (3.98-10.04) x10^3/uL RBC (3.93-5.22) x10^6/uL Hgb (11.2-15.7) g/dL Hct (34.1-44.9) % MCV (79.4-94.8) fL MCH (25.6-32.2) pg MCHC (32.2-35.5) g/dL RDW (11.7-14.4) % Plt Count (182-369) x10^3/uL MPV (9.4-12.3) fL Gran % (34.0-71.1) % Immature Gran % (Auto) (0.001-0.429) % Nucleat RBC Rel Count (0.00-0.2) % Eos # (Auto) (0.04-0.36) x10^3/uL Immature Gran # (Auto) (0.001-0.031) x10^3u/L Absolute Lymphs (auto) (1.18-3.74) x10^3/uL Absolute Monos (auto) (0.24-0.86) x10^3/uL Absolute Nucleated RBC (0.00-0.012) x10^3u/L Lymphocytes % (19.3-51.7) % Monocytes % (4.7-12.5) % Eosinophils % (0.7-5.8) % Basophils % (0.1-1.2) % Absolute Granulocytes (1.56-6.13) x10^3/uL Basophils # (0.01-0.08) x10^3/uL Sodium (135-145) mmol/L Potassium (3.5-5.1) mmol/L Chloride (98-107) mmol/L Carbon Dioxide (22-30) mmol/L Anion Gap (5-15) MEQ/L BUN (7-17) mg/dL Creatinine (0.52-1.04) mg/dL Estimated GFR ML/MIN Glucose (74-106) mg/dL POC Glucometer 110 H (74 to 106) mg/dL Hemoglobin A1c 6.82 H (4.5-6.0) % Lactic Acid (0.4-2.0) Calcium (8.4-10.2) mg/dL Magnesium (1.6-2.3) mg/dL Iron (37-170) ug/dL TIBC (265-462) ug/dL Iron Saturation (20-39) % Ferritin (11.1-264) ng/mL Total Bilirubin (0.2-1.3) mg/dL AST (14-36) U/L ALT (0-35) U/L Alkaline Phosphatase (38-126) U/L Troponin I (0.000-0.033) ng/mL Serum Total Protein (6.3-8.2) g/dL Albumin (3.5-5.0) g/dL Lipase (23-300) U/L Vitamin B12 (239-931) pg/mL Folic Acid (2.76 - >20) ng/mL Urine Color (Yellow) Urine Appearance (Clear) Urine pH (4.6-8.0) Ur Specific [place] (1.005-1.030) Urine Protein (Negative) Urine Glucose (UA) (Negative) mg/dL Urine Ketones (Negative) Urine Blood (Negative) Urine Nitrite (Negative) Urine Bilirubin (Negative) Urine Urobilinogen (0.2) mg/dL Ur Leukocyte Esterase (Negative) U Hyaline Cast (Auto) (0-2) /LPF Urine Microscopic RBC (0-5) /HPF Urine Microscopic WBC (0-5) /HPF Ur Epithelial Cells (None Seen) /HPF Calcium Oxalate Crystal (None Seen) /HPF Urine Bacteria (None Seen) /HPF Urine Culture Reflexed (NO) Stl Occult Blood (IFOB) (NEGATIVE) Radiology Exams: Radiology Procedures Category Date Time Status CERVICAL SPINE WO CONTRAST [CT] Stat Exams 10/05/23 12:36 Completed CHEST 1 VIEW (PORTABLE) Stat Exams 10/05/23 12:37 Completed ECHO W/2D AND DOPPLER [US] Routine Exams 10/06/23 09:22 Ordered HEAD WITHOUT CONTRAST [CT] Stat Exams 10/05/23 12:36 Completed Assessment/Plan (1) Sepsis secondary to UTI Current Visit: Yes Status: Acute Code(s): A41.9 - SEPSIS, UNSPECIFIED ORGANISM; N39.0 - URINARY TRACT INFECTION, SITE NOT SPECIFIED (2) Anemia Current Visit: Yes Status: Acute Qualifiers: Anemia type: iron deficiency Iron deficiency anemia type: chronic blood loss Qualified Code(s): D50.0 - Iron deficiency anemia secondary to blood loss (chronic) Code(s): D64.9 - ANEMIA, UNSPECIFIED (3) GI bleed Current Visit: Yes Status: Acute Code(s): K92.2 - GASTROINTESTINAL HEMORRHAGE, UNSPECIFIED (4) Recurrent falls Current Visit: Yes Status: Acute Code(s): R29.6 - REPEATED FALLS (5) Syncope and collapse Current Visit: Yes Status: Acute Code(s): R55 - SYNCOPE AND COLLAPSE (6) Acute UTI Current Visit: No Status: Acute Code(s): N39.0 - URINARY TRACT INFECTION, SITE NOT SPECIFIED (7) DM2 (diabetes mellitus, type 2) Current Visit: No Status: Chronic Qualifiers: Diabetes mellitus custodial insulin use: without termite treater helper use Diabetes mellitus complication status: without complication Qualified Code(s): E11.9 - Type 2 diabetes mellitus without complications (8) HTN (hypertension) Current Visit: No Status: Chronic Assessment & Plan: (1) Sepsis secondary to UTI Current Visit: Yes Status: Acute Assessment & Plan: - UC and BC pending - Lactic acid elevated in ER at 4.2- 1L fluid bolus gave IV - Repeat LA 3.4- 500ml fluid bolus ordered d/t heart hx - Trend LA level - HR > 90 - +Weakness Code(s): A41.9 - SEPSIS, UNSPECIFIED ORGANISM; N39.0 - URINARY TRACT INFECTION, SITE NOT SPECIFIED (2) Anemia Current Visit: Yes Status: Acute Assessment & Plan: - iron panel - + occult stool in ER - Surgical consult - NPO after midnight - Hgb 9.0- dropped from most recent labs reviewed - pt denies dark or tarry stools 10/06/23 - Hgb 7.8 - Surgery to do EGD/ Colonoscopy tomorrow or Monday - H& H Q6 - Iron def per lab - Started ferrous sulfate daily Code(s): D64.9 - ANEMIA, UNSPECIFIED (3) GI bleed Current Visit: Yes Status: Acute Assessment & Plan: - protonix IV - NPO after midnight- if surgery is to do procedure tomorrow - trend hgb - GS consult - + occult stool - Eliquis held - H& H Q6 Code(s): K92.2 - GASTROINTESTINAL HEMORRHAGE, UNSPECIFIED (4) Recurrent falls Current Visit: Yes Status: Acute Assessment & Plan: - PT/ OT eval - consider placement - Lives alone - Daughter lives nearby Code(s): R29.6 - REPEATED FALLS (5) Syncope and collapse Current Visit: Yes Status: Acute Assessment & Plan: - + LOC with fall. - CT head: Impression: Again nonacute senile brain with remote lacunar infarct right basal ganglia. - CT cervical spine: Impression: Again cervical lordotic reversal, osteopenia, multilevel degenerative spondylosis, multilevel minimal spondylolisthesis, and arteriosclerotic disease. No new/acute findings. - CXR: Impression: Nonacute chest with chronic features. - Trop x2 negative- trend - 2:2 UTI, anemia 10/05 - Echo - BNP Code(s): R55 - SYNCOPE AND COLLAPSE (6) Acute UTI Current Visit: No Status: Acute Assessment & Plan: - Levaquin IV - UC pending 10/05 - UC gram negative- sensitivity pending Code(s): N39.0 - URINARY TRACT INFECTION, SITE NOT SPECIFIED (7) DM2 (diabetes mellitus, type 2) Current Visit: No Status: Chronic Qualifiers: Diabetes mellitus custodial insulin use: without custodial use Diabetes mellitus complication status: without complication Qualified Code(s): E11.9 - Type 2 diabetes mellitus without complications Assessment & Plan: - A1C 6.82- controlled - Oral controlled (8) HTN (hypertension) Current Visit: No Status: Chronic Assessment & Plan: - Continue home meds - BP well controlled - monitor Code(s): I10 - ESSENTIAL (PRIMARY) HYPERTENSION Code(s): I10 - ESSENTIAL (PRIMARY) HYPERTENSION (9) Knee pain, bilateral Current Visit: Yes Status: Acute Assessment & Plan: - daughter refused pt to have knee XR's at this time - Tylenol PRN - Tramadol PRN VTE: Elishirin swenson d/t GI bleed, SCD's PPI: Protonix Next of KIN: Sol Herrera- daughter D/c plan: 1-2 days Code status: Full Code(s): M25.561 - PAIN IN RIGHT KNEE; M25.562 - PAIN IN LEFT KNEE
[2023-10-06] MEDS: Compazine 10 MG/2 ML IV PRN (12:09)
[2023-10-06 12:25] LABS: Hematocrit 26.9 % (34.1-44.9); Hemoglobin 8.1 g/dL (11.2-15.7)
[2023-10-06 18:05] LABS: Hematocrit 25.1 % (34.1-44.9); Hemoglobin 7.6 g/dL (11.2-15.7)
[2023-10-06] MEDS: ULTRAM 50 MG PO PRN (21:23)
[2023-10-07 00:50] LABS: Hematocrit 23.7 % (34.1-44.9); Hemoglobin 7.3 g/dL (11.2-15.7)
[2023-10-07 06:17] LABS: Hematocrit 24.4 % (34.1-44.9); Hemoglobin 7.5 g/dL (11.2-15.7); Mean Cell Volume 88.1 fL (79.4-94.8); Mean Corpuscular Hemoglobin 27.1 pg (25.6-32.2); Mean Corpuscular Hgb Concent. 30.7 g/dL (32.2-35.5); Mean Platelet Volume 9.3 fL (9.4-12.3); Platelet Count 270 x10^3/uL (182-369); Red Blood Count 2.77 x10^6/uL (3.93-5.22); Red Cell Distribution Width 15.9 % (11.7-14.4); White Blood Count 6.4 x10^3/uL (3.98-10.04)
[2023-10-07 06:29] LABS: BILIRUBIN,TOTAL 0.3 mg/dL (0.2-1.3); Calcium 9.4 mg/dL (8.4-10.2); Creatinine 1 0.91 mg/dL (0.52-1.04); EST GLOMERULAR FILTRATION RATE 61.4 ML/MIN; Total Protein 5.4 g/dL (6.3-8.2)
[2023-10-07 06:31] LABS: Potassium 4.1 mmol/L (3.5-5.1)
[2023-10-07 06:47] LABS: ANION GAP 8.1 MEQ/L (5-15)
[2023-10-07] MEDS ORDERED: Sodium Chloride 0.9% 1000 ML 1,000 ML ONE (09:57)
[2023-10-07] MEDS ORDERED: DIPRIVAN 200 MG/20 ML IV ONE (10:22)
[2023-10-07] MEDS: Docusate Sodium 100 MG PO SCH (11:51)
[2023-10-07] MEDS: Prozac 20 MG PO SCH (11:51)
--- NOTE | 2023-10-07 14:23 | PCM.NOTE ---
Date and Time: 10/07/23 141 Subjective Assessment: 10/05/23 is a 88 year old female with PMHX of hypertension, coronary artery disease, pulmonary embolism on Eliquis, and chronic issues with balance at her baseline. She presented in the ER with recurrent falls with loss of consciousness from fall this morning. Patient reports she gets lightheaded with standing up and weak all over leading to falls. This morning she fell between her bed and chair, + loss of consciousness for few seconds to minutes. Does not remember hitting her head. She is complaining of some pain in the backs of BL knees and R hip which is there chronically but was complaining of little more today than usual. She has no difficulty movements of hip and knees at all. No shortening or rotation. Denies any chest pain palpitations or shortness of breath before or after. Denies any dark stool. No fever or chills reported. Does have history of recurrent UTIs. She was started on Levaquin in ER for UTI as she has several allergies to meds. Gave 1 L NS in ER as lactic acid was 3.4 and repeat 2.4. Will continue with 500ml fluid bolus d/t heart hx. Started on PPI for anemia and + occult stool. She denies any recent dark or bloody stools. General surgery consulted. Trend HGB. She denies CP, SOB, abd. pain, N/V/D. 10/06/23 Pt resting in bed. She continues to have increased pain in BL knees. Daughter did not want XR's done. Pt has no swelling or edema of Knees. Rates pain 5/10 with tylenol. Hgb 7.8 today. Yesterday was 9.0. GS consulted yesterday and they explained it would be Monday or Monday before EGD/ Colonoscpy could be done. 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 Nurse did a throughout evaluation today of pt's body d/t hx of multiple falls n the last 2 weeks and no bruising found. Pt reports she has only been eating cereal at home as she is so SOB when walking and standing. Therefore she cannot stand to make meal. Echo and BNP ordered. She denies CP, SOB when laying, Abd. pain, N/V/D. 7/20/24 Pt resting in bed. She continues to feel weak. Hgb 7.5 today. She had an EGD today and it showed gastritis. Colonoscopy to be done OP. Family is wanting to pt to go to rehab at this point as she continues to be very weak. She lives alone and is afraid to go home. Family lives near by but works. To stand it takes to people at her side. IV antibiotocs continued for UTI. UC showed e-coli. She denies CP, SOB, abd. pain, N/V/D. - Review of Systems Constitutional: Weakness, No Fever, No Chills Eyes: No Symptoms Ears, Nose, & Throat: No Symptoms Respiratory: No Cough, No Short Of Breath Cardiac: No Chest Pain, No Edema, No Syncope Abdominal/Gastrointestinal: No Abdominal Pain, No Nausea, No Vomiting, No Diarrhea Genitourinary Symptoms: No Dysuria Musculoskeletal: No Back Pain, No Neck Pain Skin: No Rash Neurological: No Dizziness, No Focal Weakness, No Sensory Changes Psychological: No Symptoms Endocrine: No Symptoms Hematologic/Lymphatic: No Symptoms Immunological/Allergic: No Symptoms Objective Exam General Appearance: no apparent distress, alert Neurologic Exam: alert, oriented x 3, cooperative, normal mood/affect, nml cerebellar function, sensation nml, motor weakness, No motor deficits Skin Exam: normal color, warm, dry, pale Eye Exam: PERRL, EOMI, eyes nml inspection Ears, Nose, Throat Exam: normal ENT inspection, pharynx normal, moist mucous membranes Neck Exam: normal inspection, non-tender, supple, full range of motion Respiratory Exam: normal breath sounds, lungs clear, No respiratory distress Cardiovascular Exam: regular rate/rhythm, normal heart sounds Gastrointestinal/Abdomen Exam: soft, No tenderness, No mass Extremity Exam: normal inspection, normal range of motion Back Exam: normal inspection, normal range of motion, No CVA tenderness, No vertebral tenderness Pelvic Exam: deferred Rectal Exam: deferred Objective Data Vital Signs: Vital Signs - 24 hr Temp Pulse Resp BP Pulse Ox 10/07/23 11:49 96.8 F 68 20 143/65 90 L 10/07/23 10:07 97.0 F 72 14 137/66 91 L 10/07/23 07:26 97.0 F 72 14 137/66 91 L 10/07/23 04:00 97.9 F 72 16 139/62 92 L 10/06/23 23:48 97.9 F 70 16 136/59 92 L 10/06/23 20:00 97.8 F 82 17 91/54 92 L 10/06/23 16:00 98.7 F 76 19 100/46 91 L Pain Assessment - Last Documented Pain Intensity 5 Pain Scale Used 0-10 Pain Scale Intake and Output: Intake & Output 10/05/23 10/06/23 10/07/23 10/08/23 11:59 11:59 11:59 11:59 Intake Total 400 180 380 Output Total 600 800 Balance -200 -620 380 Weight 71.668 kg 71.7 kg 71.7 kg Lab Results: Lab Results-Last 24 Hours 10/06/23 10/06/23 10/06/23 Range/Units 16:30 17:58 21:15 WBC (3.98-10.04) x10^3/uL RBC (3.93-5.22) x10^6/uL Hgb 7.6 L (11.2-15.7) g/dL Hct 25.1 L (34.1-44.9) % MCV (79.4-94.8) fL MCH (25.6-32.2) pg MCHC (32.2-35.5) g/dL RDW (11.7-14.4) % Plt Count (182-369) x10^3/uL MPV (9.4-12.3) fL Sodium (135-145) mmol/L Potassium (3.5-5.1) mmol/L Chloride (98-107) mmol/L Carbon Dioxide (22-30) mmol/L Anion Gap (5-15) MEQ/L BUN (7-17) mg/dL Creatinine (0.52-1.04) mg/dL Estimated GFR ML/MIN Glucose (74-106) mg/dL POC Glucometer 89 156 H (74 to 106) mg/dL Calcium (8.4-10.2) mg/dL Total Bilirubin (0.2-1.3) mg/dL AST (14-36) U/L ALT (0-35) U/L Alkaline Phosphatase (38-126) U/L Serum Total Protein (6.3-8.2) g/dL Albumin (3.5-5.0) g/dL 10/07/23 10/07/23 10/07/23 Range/Units 00:48 05:35 05:35 WBC 6.4 (3.98-10.04) x10^3/uL RBC 2.77 L (3.93-5.22) x10^6/uL Hgb 7.3 L 7.5 L (11.2-15.7) g/dL Hct 23.7 L 24.4 L (34.1-44.9) % MCV 88.1 (79.4-94.8) fL MCH 27.1 (25.6-32.2) pg MCHC 30.7 L (32.2-35.5) g/dL RDW 15.9 H (11.7-14.4) % Plt Count 270 (182-369) x10^3/uL MPV 9.3 L (9.4-12.3) fL Sodium 136 (135-145) mmol/L Potassium 4.1 (3.5-5.1) mmol/L Chloride 104 (98-107) mmol/L Carbon Dioxide 28 (22-30) mmol/L Anion Gap 8.1 (5-15) MEQ/L BUN 23 H (7-17) mg/dL Creatinine 0.91 (0.52-1.04) mg/dL Estimated GFR 61.4 ML/MIN Glucose 132 H (74-106) mg/dL POC Glucometer (74 to 106) mg/dL Calcium 9.4 (8.4-10.2) mg/dL Total Bilirubin 0.30 (0.2-1.3) mg/dL AST 23 (14-36) U/L ALT 15 (0-35) U/L Alkaline Phosphatase 80 (38-126) U/L Serum Total Protein 5.4 L (6.3-8.2) g/dL Albumin 3.0 L (3.5-5.0) g/dL 10/07/23 10/07/23 Range/Units 07:17 11:13 WBC (3.98-10.04) x10^3/uL RBC (3.93-5.22) x10^6/uL Hgb (11.2-15.7) g/dL Hct (34.1-44.9) % MCV (79.4-94.8) fL MCH (25.6-32.2) pg MCHC (32.2-35.5) g/dL RDW (11.7-14.4) % Plt Count (182-369) x10^3/uL MPV (9.4-12.3) fL Sodium (135-145) mmol/L Potassium (3.5-5.1) mmol/L Chloride (98-107) mmol/L Carbon Dioxide (22-30) mmol/L Anion Gap (5-15) MEQ/L BUN (7-17) mg/dL Creatinine (0.52-1.04) mg/dL Estimated GFR ML/MIN Glucose (74-106) mg/dL POC Glucometer 121 H 149 H (74 to 106) mg/dL Calcium (8.4-10.2) mg/dL Total Bilirubin (0.2-1.3) mg/dL AST (14-36) U/L ALT (0-35) U/L Alkaline Phosphatase (38-126) U/L Serum Total Protein (6.3-8.2) g/dL Albumin (3.5-5.0) g/dL Radiology Exams: Radiology Procedures Category Date Time Status ECHO W/2D AND DOPPLER [US] Routine Exams 10/06/23 09:22 Taken Multi-Disciplinary Progress Notes: Multi-Disciplinary Progress Notes 10/07/23 02:03 Radiology Note by HAILEE ANTUNEZ TRANSTHORACIC ECHOCARDIOGRAM 10/06/2023: 1. Mildly dilated left atrium. Other chamber sizes are normal. 2. Mild concentric left ventricular hypertrophy. 3. Normal left ventricular systolic function without wall motion abnormalities. Estimated EF 65%. 4. Moderate diastolic dysfunction. 5. Normal right ventricular systolic function. 6. Mild aortic sclerosis without stenosis. 7. Doppler: Trace aortic regurgitation. 8. Moderate pulmonary hypertension with an estimated PA systolic pressure 60 mmHg. 9. Mildly elevated right atrial pressure. 10. No pericardial effusion. Hailee Antunez MD [facility] Initialized on 10/07/23 02:03 - END OF NOTE Assessment/Plan (1) Sepsis secondary to UTI Current Visit: Yes Status: Acute Code(s): A41.9 - SEPSIS, UNSPECIFIED ORGANISM; N39.0 - URINARY TRACT INFECTION, SITE NOT SPECIFIED (2) Anemia Current Visit: Yes Status: Acute Qualifiers: Anemia type: iron deficiency Iron deficiency anemia type: chronic blood loss Qualified Code(s): D50.0 - Iron deficiency anemia secondary to blood loss (chronic) Code(s): D64.9 - ANEMIA, UNSPECIFIED (3) GI bleed Current Visit: Yes Status: Acute Code(s): K92.2 - GASTROINTESTINAL HEMORRHAGE, UNSPECIFIED (4) Recurrent falls Current Visit: Yes Status: Acute Code(s): R29.6 - REPEATED FALLS (5) Syncope and collapse Current Visit: Yes Status: Acute Code(s): R55 - SYNCOPE AND COLLAPSE (6) Acute UTI Current Visit: No Status: Acute Code(s): N39.0 - URINARY TRACT INFECTION, SITE NOT SPECIFIED (7) DM2 (diabetes mellitus, type 2) Current Visit: No Status: Chronic Qualifiers: Diabetes mellitus mcfp insulin use: without termite exterminator use Diabetes mellitus complication status: without complication Qualified Code(s): E11.9 - Type 2 diabetes mellitus without complications (8) HTN (hypertension) Current Visit: No Status: Chronic Code(s): I10 - ESSENTIAL (PRIMARY) HYPERTENSION (9) Knee pain, bilateral Current Visit: Yes Status: Acute Assessment & Plan: (1) Sepsis secondary to UTI Current Visit: Yes Status: Acute Assessment & Plan: - UC and BC pending - Lactic acid elevated in ER at 4.2- 1L fluid bolus gave IV - Repeat LA 3.4- 500ml fluid bolus ordered d/t heart hx - Trend LA level - HR > 90 - +Weakness Code(s): A41.9 - SEPSIS, UNSPECIFIED ORGANISM; N39.0 - URINARY TRACT INFECTION, SITE NOT SPECIFIED (2) Anemia Current Visit: Yes Status: Acute Assessment & Plan: - iron panel - + occult stool in ER - Surgical consult - NPO after midnight - Hgb 9.0- dropped from most recent labs reviewed - pt denies dark or tarry stools 10/06/23 - Hgb 7.8 - Surgery to do EGD/ Colonoscopy tomorrow or Monday - H& H Q6 - Iron def per lab - Started ferrous sulfate daily 10/06 - + continued weakness - Hgb 7.5 Code(s): D64.9 - ANEMIA, UNSPECIFIED (3) GI bleed Current Visit: Yes Status: Acute Assessment & Plan: - protonix IV - NPO after midnight- if surgery is to do procedure tomorrow - trend hgb - GS consult - + occult stool - Eliquis held - H& H Q6 10/06 - EKG- showed gastritis per GS - Colonoscopy to be done Code(s): K92.2 - GASTROINTESTINAL HEMORRHAGE, UNSPECIFIED (4) Recurrent falls Current Visit: Yes Status: Acute Assessment & Plan: - PT/ OT eval - consider placement - Lives alone - Daughter lives nearby Code(s): R29.6 - REPEATED FALLS (5) Syncope and collapse Current Visit: Yes Status: Acute Assessment & Plan: - + LOC with fall. - CT head: Impression: Again nonacute senile brain with remote lacunar infarct right basal ganglia. - CT cervical spine: Impression: Again cervical lordotic reversal, osteopenia, multilevel degenerative spondylosis, multilevel minimal spondylolisthesis, and arteriosclerotic disease. No new/acute findings. - CXR: Impression: Nonacute chest with chronic features. - Trop x2 negative- trend - 2:2 UTI, anemia 10/05 - Echo - BNP 10/06 - Continued Weakness - Family wants Rehab placement Code(s): R55 - SYNCOPE AND COLLAPSE (6) Acute UTI Current Visit: No Status: Acute Assessment & Plan: - Levaquin IV - UC pending 10/05 - UC gram negative- sensitivity pending 10/06 - UC + E-coli - Continue Levaquin Code(s): N39.0 - URINARY TRACT INFECTION, SITE NOT SPECIFIED (7) DM2 (diabetes mellitus, type 2) Current Visit: No Status: Chronic Qualifiers: Diabetes mellitus mcfp insulin use: without termite exterminator use Diabetes mellitus complication status: without complication Qualified Code(s): E11.9 - Type 2 diabetes mellitus without complications Assessment & Plan: - A1C 6.82- controlled - Oral controlled (8) HTN (hypertension) Current Visit: No Status: Chronic Assessment & Plan: - Continue home meds - BP well controlled - monitor Code(s): I10 - ESSENTIAL (PRIMARY) HYPERTENSION Code(s): I10 - ESSENTIAL (PRIMARY) HYPERTENSION (9) Knee pain, bilateral Current Visit: Yes Status: Acute Assessment & Plan: - daughter refused pt to have knee XR's at this time - Tylenol PRN - Tramadol PRN VTE: Eliqus held d/t GI bleed, SCD's PPI: Protonix Next of KIN: Sol Herrera- daughter D/c plan: Monday? - placement Code status: Full Code(s): M25.561 - PAIN IN RIGHT KNEE; M25.562 - PAIN IN LEFT KNEE
[2023-10-07] MEDS: Sodium Chloride 0.9% 1000 ML 1,000 ML IV SCH (17:05)
[2023-10-08 06:10] LABS: Hemoglobin 7.3 g/dL (11.2-15.7); Mean Cell Volume 87.3 fL (79.4-94.8); Mean Corpuscular Hemoglobin 26.5 pg (25.6-32.2); Mean Corpuscular Hgb Concent. 30.4 g/dL (32.2-35.5); Mean Platelet Volume 9.4 fL (9.4-12.3); Platelet Count 260 x10^3/uL (182-369); Red Blood Count 2.75 x10^6/uL (3.93-5.22); Red Cell Distribution Width 16.2 % (11.7-14.4); White Blood Count 6.8 x10^3/uL (3.98-10.04)
[2023-10-08 06:25] LABS: ALBUMIN 2.9 g/dL (3.5-5.0); ANION GAP 8.6 MEQ/L (5-15); BILIRUBIN,TOTAL 0.2 mg/dL (0.2-1.3); Calcium 9.1 mg/dL (8.4-10.2); Creatinine 1 0.9 mg/dL (0.52-1.04); EST GLOMERULAR FILTRATION RATE 62.3 ML/MIN; Potassium 4.1 mmol/L (3.5-5.1); Total Protein 5.3 g/dL (6.3-8.2)
[2023-10-08] MEDS: Levofloxacin 250MG Tablet PO SCH (10:45)
--- NOTE | 2023-10-08 12:53 | PCM.NOTE ---
Date and Time: 10/08/23 1247 Subjective Assessment: 10/05/23 is a 88 year old female with PMHX of hypertension, coronary artery disease, pulmonary embolism on Eliquis, and chronic issues with balance at her baseline. She presented in the ER with recurrent falls with loss of consciousness from fall this morning. Patient reports she gets lightheaded with standing up and weak all over leading to falls. This morning she fell between her bed and chair, + loss of consciousness for few seconds to minutes. Does not remember hitting her head. She is complaining of some pain in the backs of BL knees and R hip which is there chronically but was complaining of little more today than usual. She has no difficulty movements of hip and knees at all. No shortening or rotation. Denies any chest pain palpitations or shortness of breath before or after. Denies any dark stool. No fever or chills reported. Does have history of recurrent UTIs. She was started on Levaquin in ER for UTI as she has several allergies to meds. Gave 1 L NS in ER as lactic acid was 3.4 and repeat 2.4. Will continue with 500ml fluid bolus d/t heart hx. Started on PPI for anemia and + occult stool. She denies any recent dark or bloody stools. General surgery consulted. Trend HGB. She denies CP, SOB, abd. pain, N/V/D. 10/06/23 Pt resting in bed. She continues to have increased pain in BL knees. Daughter did not want XR's done. Pt has no swelling or edema of Knees. Rates pain 5/10 with tylenol. Hgb 7.8 today. Yesterday was 9.0. GS consulted yesterday and they explained it would be Monday or Monday before EGD/ Colonoscpy could be done. 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 Nurse did a throughout evaluation today of pt's body d/t hx of multiple falls n the last 2 weeks and no bruising found. Pt reports she has only been eating cereal at home as she is so SOB when walking and standing. Therefore she cannot stand to make meal. Echo and BNP ordered. She denies CP, SOB when laying, Abd. pain, N/V/D. 10/07/23 Pt resting in bed. She continues to feel weak. Hgb 7.5 today. She had an EGD today and it showed gastritis. Colonoscopy to be done OP. Family is wanting to pt to go to rehab at this point as she continues to be very weak. She lives alone and is afraid to go home. Family lives near by but works. To stand it takes to people at her side. IV antibiotics continued for UTI. UC showed e-coli. She denies CP, SOB, abd. pain, N/V/D. 10/08/23 Pt sitting up in the chair. She is c/o BL hip pain and left thigh pain. Will XR as she has had continued pain since time of admission. Pt lost her IV so antibiotics changed to PO. Pt and family would for her to go to rehab at d/c. Will have to wait until tomorrow when case management is here to set this up. She admits to continued weakness. Hgb 7.3 today. She denies any dark or tarry stools overnight. She denies CP, SOB, abd. pain, N/V/D. - Review of Systems Constitutional: Weakness, No Fever, No Chills Eyes: No Symptoms Ears, Nose, & Throat: No Symptoms Respiratory: No Cough, No Short Of Breath Cardiac: No Chest Pain, No Edema, No Syncope Abdominal/Gastrointestinal: No Abdominal Pain, No Nausea, No Vomiting, No Diarrhea Genitourinary Symptoms: No Dysuria Musculoskeletal: Arthralgias (BL hips and left thigh), Joint Pain, No Back Pain, No Neck Pain Skin: No Rash Neurological: No Dizziness, No Focal Weakness, No Sensory Changes Psychological: No Symptoms Endocrine: No Symptoms Hematologic/Lymphatic: No Symptoms Immunological/Allergic: No Symptoms Objective Exam General Appearance: no apparent distress, alert Neurologic Exam: alert, oriented x 3, cooperative, normal mood/affect, nml cerebellar function, sensation nml, motor weakness, No motor deficits Skin Exam: normal color, warm, dry, pale Eye Exam: PERRL, EOMI, eyes nml inspection Ears, Nose, Throat Exam: normal ENT inspection, pharynx normal, moist mucous membranes Neck Exam: normal inspection, non-tender, supple, full range of motion Respiratory Exam: normal breath sounds, lungs clear, No respiratory distress Cardiovascular Exam: regular rate/rhythm, normal heart sounds Gastrointestinal/Abdomen Exam: soft, No tenderness, No mass Extremity Exam: normal inspection, normal range of motion Back Exam: normal inspection, normal range of motion, No CVA tenderness, No vertebral tenderness Pelvic Exam: deferred Rectal Exam: deferred Objective Data Vital Signs: Vital Signs - 24 hr Temp Pulse Resp BP BP Pulse Ox 10/08/23 11:55 97.6 F 75 16 132/60 97 10/08/23 07:19 97.8 F 67 16 131/63 98 10/08/23 04:00 98.7 F 75 16 130/56 93 L 10/08/23 00:00 98.8 F 74 18 129/63 93 L 10/07/23 19:56 99.1 F 85 16 92/52 89 L 10/07/23 16:00 98.4 F 75 16 124/58 97 Pain Assessment - Last Documented Pain Intensity 5 Pain Scale Used 0-10 Pain Scale Intake and Output: Intake & Output 10/06/23 10/07/23 10/08/23 10/09/23 11:59 11:59 11:59 11:59 Intake Total 199 147 5370 Output Total 600 800 Balance -200 -620 1300 Weight 71.7 kg 71.7 kg Lab Results: Lab Results-Last 24 Hours 10/07/23 10/07/23 10/08/23 Range/Units 16:16 20:51 05:45 WBC 6.8 (3.98-10.04) x10^3/uL RBC 2.75 L (3.93-5.22) x10^6/uL Hgb 7.3 L (11.2-15.7) g/dL Hct 24.0 L (34.1-44.9) % MCV 87.3 (79.4-94.8) fL MCH 26.5 (25.6-32.2) pg MCHC 30.4 L (32.2-35.5) g/dL RDW 16.2 H (11.7-14.4) % Plt Count 260 (182-369) x10^3/uL MPV 9.4 (9.4-12.3) fL Sodium (135-145) mmol/L Potassium (3.5-5.1) mmol/L Chloride (98-107) mmol/L Carbon Dioxide (22-30) mmol/L Anion Gap (5-15) MEQ/L BUN (7-17) mg/dL Creatinine (0.52-1.04) mg/dL Estimated GFR ML/MIN Glucose (74-106) mg/dL POC Glucometer 202 H 143 H (74 to 106) mg/dL Calcium (8.4-10.2) mg/dL Total Bilirubin (0.2-1.3) mg/dL AST (14-36) U/L ALT (0-35) U/L Alkaline Phosphatase (38-126) U/L Serum Total Protein (6.3-8.2) g/dL Albumin (3.5-5.0) g/dL 10/08/23 10/08/23 10/08/23 Range/Units 05:45 07:47 11:29 WBC (3.98-10.04) x10^3/uL RBC (3.93-5.22) x10^6/uL Hgb (11.2-15.7) g/dL Hct (34.1-44.9) % MCV (79.4-94.8) fL MCH (25.6-32.2) pg MCHC (32.2-35.5) g/dL RDW (11.7-14.4) % Plt Count (182-369) x10^3/uL MPV (9.4-12.3) fL Sodium 137 (135-145) mmol/L Potassium 4.1 (3.5-5.1) mmol/L Chloride 104 (98-107) mmol/L Carbon Dioxide 28 (22-30) mmol/L Anion Gap 8.6 (5-15) MEQ/L BUN 22 H (7-17) mg/dL Creatinine 0.90 (0.52-1.04) mg/dL Estimated GFR 62.3 ML/MIN Glucose 109 H (74-106) mg/dL POC Glucometer 106 131 H (74 to 106) mg/dL Calcium 9.1 (8.4-10.2) mg/dL Total Bilirubin 0.20 (0.2-1.3) mg/dL AST 21 (14-36) U/L ALT 15 (0-35) U/L Alkaline Phosphatase 83 (38-126) U/L Serum Total Protein 5.3 L (6.3-8.2) g/dL Albumin 2.9 L (3.5-5.0) g/dL Radiology Exams: Radiology Procedures Category Date Time Status FEMUR Routine Exams 10/08/23 11:25 Taken HIPS MISHA(2V) INCL PEL IF DONE Routine Exams 10/08/23 11:25 Taken Assessment/Plan (1) Sepsis secondary to UTI Current Visit: Yes Status: Acute Code(s): A41.9 - SEPSIS, UNSPECIFIED ORGANISM; N39.0 - URINARY TRACT INFECTION, SITE NOT SPECIFIED (2) Anemia Current Visit: Yes Status: Acute Qualifiers: Anemia type: iron deficiency Iron deficiency anemia type: chronic blood loss Qualified Code(s): D50.0 - Iron deficiency anemia secondary to blood loss (chronic) Code(s): D64.9 - ANEMIA, UNSPECIFIED (3) GI bleed Current Visit: Yes Status: Acute Code(s): K92.2 - GASTROINTESTINAL HEMORRHAGE, UNSPECIFIED (4) Recurrent falls Current Visit: Yes Status: Acute Code(s): R29.6 - REPEATED FALLS (5) Syncope and collapse Current Visit: Yes Status: Acute Code(s): R55 - SYNCOPE AND COLLAPSE (6) Acute UTI Current Visit: No Status: Acute Code(s): N39.0 - URINARY TRACT INFECTION, SITE NOT SPECIFIED (7) DM2 (diabetes mellitus, type 2) Current Visit: No Status: Chronic Qualifiers: Diabetes mellitus skilled nursing insulin use: without skilled nursing use Diabetes mellitus complication status: without complication Qualified Code(s): E11.9 - Type 2 diabetes mellitus without complications (8) HTN (hypertension) Current Visit: No Status: Chronic Code(s): I10 - ESSENTIAL (PRIMARY) HYPERTENSION (9) Knee pain, bilateral Current Visit: Yes Status: Acute Assessment & Plan: (1) Sepsis secondary to UTI Current Visit: Yes Status: Acute Assessment & Plan: - UC and BC pending - Lactic acid elevated in ER at 4.2- 1L fluid bolus gave IV - Repeat LA 3.4- 500ml fluid bolus ordered d/t heart hx - Trend LA level - HR > 90 - +Weakness Code(s): A41.9 - SEPSIS, UNSPECIFIED ORGANISM; N39.0 - URINARY TRACT INFECTION, SITE NOT SPECIFIED (2) Anemia Current Visit: Yes Status: Acute Assessment & Plan: - iron panel - + occult stool in ER - Surgical consult - NPO after midnight - Hgb 9.0- dropped from most recent labs reviewed - pt denies dark or tarry stools 10/06/23 - Hgb 7.8 - Surgery to do EGD/ Colonoscopy tomorrow or Monday - H& H Q6 - Iron def per lab - Started ferrous sulfate daily 10/06 - + continued weakness - Hgb 7.5 10/07 - Hgb 7.3 Code(s): D64.9 - ANEMIA, UNSPECIFIED (3) GI bleed Current Visit: Yes Status: Acute Assessment & Plan: - protonix IV - NPO after midnight- if surgery is to do procedure tomorrow - trend hgb - GS consult - + occult stool - Eliquis held - H& H Q6 10/06 - EKG- showed gastritis per GS- continue Protonix - Colonoscopy to be done OP Code(s): K92.2 - GASTROINTESTINAL HEMORRHAGE, UNSPECIFIED (4) Recurrent falls Current Visit: Yes Status: Acute Assessment & Plan: - PT/ OT eval - consider placement - Lives alone - Daughter lives nearby Code(s): R29.6 - REPEATED FALLS (5) Syncope and collapse Current Visit: Yes Status: Acute Assessment & Plan: - + LOC with fall. - CT head: Impression: Again nonacute senile brain with remote lacunar infarct right basal ganglia. - CT cervical spine: Impression: Again cervical lordotic reversal, osteopenia, multilevel degenerative spondylosis, multilevel minimal spondylolisthesis, and arteriosclerotic disease. No new/acute findings. - CXR: Impression: Nonacute chest with chronic features. - Trop x2 negative- trend - 2:2 UTI, anemia 10/05 - Echo - BNP 10/06 - Continued Weakness - Family wants Rehab placement Code(s): R55 - SYNCOPE AND COLLAPSE (6) Acute UTI Current Visit: No Status: Acute Assessment & Plan: - Levaquin IV - UC pending 10/05 - UC gram negative- sensitivity pending 10/06 - UC + E-coli - Continue Levaquin 10/07 - Changed to PO Levaquin as no IV now Code(s): N39.0 - URINARY TRACT INFECTION, SITE NOT SPECIFIED (7) DM2 (diabetes mellitus, type 2) Current Visit: No Status: Chronic Qualifiers: Diabetes mellitus skilled nursing insulin use: without skilled nursing use Diabetes mellitus complication status: without complication Qualified Code(s): E11.9 - Type 2 diabetes mellitus without complications Assessment & Plan: - A1C 6.82- controlled - Oral controlled (8) HTN (hypertension) Current Visit: No Status: Chronic Assessment & Plan: - Continue home meds - BP well controlled - monitor Code(s): I10 - ESSENTIAL (PRIMARY) HYPERTENSION Code(s): I10 - ESSENTIAL (PRIMARY) HYPERTENSION (9) Knee pain, bilateral Current Visit: Yes Status: Acute Assessment & Plan: - daughter refused pt to have knee XR's at this time - Tylenol PRN - Tramadol PRN Code(s): M25.561 - PAIN IN RIGHT KNEE; M25.562 - PAIN IN LEFT KNEE Code(s): M25.561 - PAIN IN RIGHT KNEE; M25.562 - PAIN IN LEFT KNEE (10) Hip pain, bilateral Current Visit: Yes Status: Acute Assessment & Plan: - XR- pending Code(s): M25.551 - PAIN IN RIGHT HIP; M25.552 - PAIN IN LEFT HIP (11) Left thigh pain Current Visit: Yes Status: Acute Assessment & Plan: - XR- pending VTE: Anusha swenson d/t GI bleed, SCD's PPI: Protonix Next of KIN: Sol Herrera- daughter D/c plan: Monday? - placement Code status: Full Code(s): M79.652 - PAIN IN LEFT THIGH
--- NOTE | 2023-10-08 20:43 | XRAY ---
CLINICAL HISTORY: Left thigh pain- not improving COMPARISON: None. TECHNIQUE: X-ray of the left femur in AP and lateral views. FINDINGS: Decreased generalized bone mineralization was observed. Evidence of mild osteoarthritis of the left hip, symphysis pubis joints, and femur in the form of marginal osteophytes and subchondral sclerosis. There are vascular calcifications noted along the femoral and popliteal arteries. Multiple phleboliths are observed, appearing as small, round calcifications within the pelvis. The knee prosthesis is in situ with no signs of loosening or osteolysis. The prosthetic components are appropriately aligned and positioned. No acute fracture or dislocation was noted. A tiny nodular opacities noted overlies suprapatellar subcutaneous fat tissue, otherwise soft tissues are unremarkable. IMPRESSION: 1. 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 2. Osteopenia. 3. Vascular calcifications and multiple phleboliths. 4. Stable knee joint prosthesis with no immediate complications. 5. No acute fracture or dislocations. DISCLAIMER:A subtle bone abnormality or fracture may not be readily apparent on x-rays, thus clinical correlation and further imaging including follow up CT, MRI, or follow up x-rays are advised as needed. Electronically Signed by: Ryan Mack MD. (10/08/2023 20:39:16 EDT)
--- NOTE | 2023-10-08 21:10 | XRAY ---
CLINICAL HISTORY: continued BL hip pain COMPARISON: None. TECHNIQUE: X-ray of both hip AP and lateral views. AP view of the pelvis has also been acquired. FINDINGS: Decreased generalized bone mineralization was observed. Evidence of mild to moderate osteoarthritis of the visualized joints (hip, symphysis pubis, sacroiliac, and lumbosacral) in the form of marginal osteophytes and subchondral sclerosis. Enthesophytes along the greater trochanters of bilateral femori. There are vascular calcifications noted along the femoral and popliteal arteries. Multiple phleboliths are observed, appearing as small, round calcifications within the pelvis. No acute fracture or dislocation was noted. No soft tissue abnormality was observed. IMPRESSION: 1. Mild to moderate osteoarthritis of the hip, symphysis pubis, sacroiliac, and lumbosacral joints. 2. Osteopenia. 3. Vascular calcifications and multiple phleboliths. 4. No acute fracture or dislocations. DISCLAIMER:A subtle bone abnormality or fracture may not be readily apparent on x-rays, thus clinical correlation and further imaging including follow-up CT, MRI, or follow-up x-rays are advised as needed. Electronically Signed by: Ryan Mack MD. (10/08/2023 21:04:57 EDT)
[2023-10-09 05:15] LABS: Hematocrit 25.8 % (34.1-44.9); Hemoglobin 7.8 g/dL (11.2-15.7); Mean Cell Volume 88.7 fL (79.4-94.8); Mean Corpuscular Hemoglobin 26.8 pg (25.6-32.2); Mean Corpuscular Hgb Concent. 30.2 g/dL (32.2-35.5); Mean Platelet Volume 9.6 fL (9.4-12.3); Platelet Count 262 x10^3/uL (182-369); Red Blood Count 2.91 x10^6/uL (3.93-5.22); Red Cell Distribution Width 16.3 % (11.7-14.4); White Blood Count 6.2 x10^3/uL (3.98-10.04)
[2023-10-09 05:34] LABS: ANION GAP 8.7 MEQ/L (5-15); BILIRUBIN,TOTAL 0.1 mg/dL (0.2-1.3); Calcium 9.3 mg/dL (8.4-10.2); Creatinine 1 0.96 mg/dL (0.52-1.04); EST GLOMERULAR FILTRATION RATE 57.6 ML/MIN; Potassium 3.8 mmol/L (3.5-5.1); Total Protein 5.5 g/dL (6.3-8.2)
--- NOTE | 2023-10-09 05:37 | PCM.NOTE ---
Date and Time: 10/09/23 0532 Subjective Assessment: is a 88 year old female with PMHX of hypertension, coronary artery disease, pulmonary embolism on Eliquis, and chronic issues with balance at her baseline admitted 10/05/23 with sepsis secondary to urinary tract infection after experiencing recurrent falls with loss of consciousness. Does have history of recurrent UTIs. She was started on Levaquin in ER for UTI as she has several allergies to meds. Ecoli on culture with sensitivity to Levofloxacin. Sepsis has resolved. Started on PPI for anemia and + occult stool. She denies any recent dark or bloody stools. Surgery consulted - EGD showing gastritis. Colonoscopy to be performed 10/10/23. Patient has complaints of pain in the backs of BL knees and R hip chronically but increased lately. She has no difficulty movements of hip and knees at all. No shortening or rotation. Xray femur/tib/fib with no acute finding. Patient remains weak and needing rehab on d/c. 10/09/23: Met with patient bedside. Endorses continued weakness and joint pain. Discussed xray of femur/tib/fib with no acute findings. Denies dark stools/ no BRBPR. Hemoglobin remains low at 7.8, occult stools positive. Plan for colonoscopy tomorrow with Dr. Carmona. Patient to prep overnight. Will discharge to SNF for rehab as patient remains very weak and disconditioned. Denies fever,cough, sob, cp, abdominal pain, BRITO, dizziness, N/V/D. - Review of Systems Constitutional: No Symptoms Eyes: No Symptoms Ears, Nose, & Throat: No Symptoms Respiratory: No Symptoms Cardiac: No Symptoms Abdominal/Gastrointestinal: No Symptoms Genitourinary Symptoms: No Symptoms Musculoskeletal: Back Pain, Joint Pain Skin: No Symptoms Neurological: No Symptoms Psychological: No Symptoms Endocrine: No Symptoms Hematologic/Lymphatic: No Symptoms Immunological/Allergic: No Symptoms Objective Exam General Appearance: no apparent distress Neurologic Exam: alert, oriented x 3, cooperative Skin Exam: normal color Eye Exam: PERRL Ears, Nose, Throat Exam: normal ENT inspection Neck Exam: normal inspection Respiratory Exam: normal breath sounds, lungs clear Cardiovascular Exam: regular rate/rhythm, normal heart sounds Gastrointestinal/Abdomen Exam: soft, normal bowel sounds Extremity Exam: normal inspection Back Exam: normal inspection Objective Data Vital Signs: Vital Signs - 24 hr Temp Pulse Resp BP Pulse Ox 10/09/23 04:00 98.4 F 68 17 195/78 94 L 10/09/23 00:00 97.9 F 92 H 20 132/62 89 L 10/08/23 20:00 99.2 F 75 16 118/58 94 L 10/08/23 16:00 97.8 F 76 16 129/59 97 10/08/23 11:55 97.6 F 75 16 132/60 97 10/08/23 07:19 97.8 F 67 16 131/63 98 Pain Assessment - Last Documented Pain Intensity 0 Pain Scale Used 0-10 Pain Scale Intake and Output: Intake & Output 10/06/23 10/07/23 10/08/23 10/09/23 11:59 11:59 11:59 11:59 Intake Total 468 561 4245 1060 Output Total 600 800 Balance -200 -620 1300 1060 Weight 71.7 kg 71.7 kg Lab Results: Lab Results-Last 24 Hours 10/08/23 10/08/23 10/08/23 Range/Units 05:45 05:45 07:47 WBC 6.8 (3.98-10.04) x10^3/uL RBC 2.75 L (3.93-5.22) x10^6/uL Hgb 7.3 L (11.2-15.7) g/dL Hct 24.0 L (34.1-44.9) % MCV 87.3 (79.4-94.8) fL MCH 26.5 (25.6-32.2) pg MCHC 30.4 L (32.2-35.5) g/dL RDW 16.2 H (11.7-14.4) % Plt Count 260 (182-369) x10^3/uL MPV 9.4 (9.4-12.3) fL Sodium 137 (135-145) mmol/L Potassium 4.1 (3.5-5.1) mmol/L Chloride 104 (98-107) mmol/L Carbon Dioxide 28 (22-30) mmol/L Anion Gap 8.6 (5-15) MEQ/L BUN 22 H (7-17) mg/dL Creatinine 0.90 (0.52-1.04) mg/dL Estimated GFR 62.3 ML/MIN Glucose 109 H (74-106) mg/dL POC Glucometer 106 (74 to 106) mg/dL Calcium 9.1 (8.4-10.2) mg/dL Total Bilirubin 0.20 (0.2-1.3) mg/dL AST 21 (14-36) U/L ALT 15 (0-35) U/L Alkaline Phosphatase 83 (38-126) U/L Serum Total Protein 5.3 L (6.3-8.2) g/dL Albumin 2.9 L (3.5-5.0) g/dL 10/08/23 10/08/23 10/08/23 Range/Units 11:29 16:26 20:58 WBC (3.98-10.04) x10^3/uL RBC (3.93-5.22) x10^6/uL Hgb (11.2-15.7) g/dL Hct (34.1-44.9) % MCV (79.4-94.8) fL MCH (25.6-32.2) pg MCHC (32.2-35.5) g/dL RDW (11.7-14.4) % Plt Count (182-369) x10^3/uL MPV (9.4-12.3) fL Sodium (135-145) mmol/L Potassium (3.5-5.1) mmol/L Chloride (98-107) mmol/L Carbon Dioxide (22-30) mmol/L Anion Gap (5-15) MEQ/L BUN (7-17) mg/dL Creatinine (0.52-1.04) mg/dL Estimated GFR ML/MIN Glucose (74-106) mg/dL POC Glucometer 131 H 121 H 129 H (74 to 106) mg/dL Calcium (8.4-10.2) mg/dL Total Bilirubin (0.2-1.3) mg/dL AST (14-36) U/L ALT (0-35) U/L Alkaline Phosphatase (38-126) U/L Serum Total Protein (6.3-8.2) g/dL Albumin (3.5-5.0) g/dL 10/09/23 Range/Units 04:11 WBC 6.2 (3.98-10.04) x10^3/uL RBC 2.91 L (3.93-5.22) x10^6/uL Hgb 7.8 L (11.2-15.7) g/dL Hct 25.8 L (34.1-44.9) % MCV 88.7 (79.4-94.8) fL MCH 26.8 (25.6-32.2) pg MCHC 30.2 L (32.2-35.5) g/dL RDW 16.3 H (11.7-14.4) % Plt Count 262 (182-369) x10^3/uL MPV 9.6 (9.4-12.3) fL Sodium (135-145) mmol/L Potassium (3.5-5.1) mmol/L Chloride (98-107) mmol/L Carbon Dioxide (22-30) mmol/L Anion Gap (5-15) MEQ/L BUN (7-17) mg/dL Creatinine (0.52-1.04) mg/dL Estimated GFR ML/MIN Glucose (74-106) mg/dL POC Glucometer (74 to 106) mg/dL Calcium (8.4-10.2) mg/dL Total Bilirubin (0.2-1.3) mg/dL AST (14-36) U/L ALT (0-35) U/L Alkaline Phosphatase (38-126) U/L Serum Total Protein (6.3-8.2) g/dL Albumin (3.5-5.0) g/dL Radiology Exams: Radiology Procedures Category Date Time Status FEMUR Routine Exams 10/08/23 11:25 Completed HIPS MISHA(2V) INCL PEL IF DONE Routine Exams 10/08/23 11:25 Completed Assessment/Plan (1) Sepsis secondary to UTI Current Visit: Yes Status: Acute Assessment & Plan: UC with ecoli - levofloxacin sensitivity - continue -BC NGTD on pre-kuhn - Lactic acid elevated in ER at 4.2- 1L fluid bolus gave IV/ Repeat LA 3.4- 500ml fluid bolus ordered d/t heart hx/ now wnl -Resolved - WBC WNL, LA WNL, stable vitals Code(s): A41.9 - SEPSIS, UNSPECIFIED ORGANISM; N39.0 - URINARY TRACT INFECTION, SITE NOT SPECIFIED (2) Acute UTI Current Visit: No Status: Acute Assessment & Plan: -Ucult with Ecoli and sensitivity to Levaquin - vernell continue on PO- Levaquin IV Code(s): N39.0 - URINARY TRACT INFECTION, SITE NOT SPECIFIED (3) Anemia Current Visit: Yes Status: Acute Qualifiers: Anemia type: iron deficiency Iron deficiency anemia type: chronic blood loss Qualified Code(s): D50.0 - Iron deficiency anemia secondary to blood loss (chronic) Assessment & Plan: - iron panel with 10% saturation, Hgb downtrending 7.8>7.3<7.5<7.5<9.0 - + occult stool in ER - Surgical consult - EGD with gastritis - Plan for colonoscopy 10/10/23 - Started ferrous sulfate daily- recommend IV iron infusion as OP Code(s): D64.9 - ANEMIA, UNSPECIFIED (4) GI bleed Current Visit: Yes Status: Acute Assessment & Plan: - iron panel with 10% saturation, Hgb downtrending 7.3<7.5<7.5<9.0 - + occult stool in ER - Surgical consult - EGD with gastritis - Plan for colonoscopy 10/10/23 - Started ferrous sulfate daily- recommend IV iron infusion as OP Code(s): K92.2 - GASTROINTESTINAL HEMORRHAGE, UNSPECIFIED (5) Hip pain, bilateral Current Visit: Yes Status: Acute Assessment & Plan: - XR- reviewed with no acute findings, continue pain regimen - chronic Code(s): M25.551 - PAIN IN RIGHT HIP; M25.552 - PAIN IN LEFT HIP (6) Knee pain, bilateral Current Visit: Yes Status: Acute Assessment & Plan: - daughter refused pt to have knee XR's at this time - Tylenol PRN - Tramadol PRN Code(s): M25.561 - PAIN IN RIGHT KNEE; M25.562 - PAIN IN LEFT KNEE (7) Left thigh pain Current Visit: Yes Status: Acute Assessment & Plan: - XR-with no acute findings - chronic - continue pain management Code(s): M79.652 - PAIN IN LEFT THIGH (8) Recurrent falls Current Visit: Yes Status: Acute Assessment & Plan: - PT/ OT eval - Accepted to water on discharge - Lives alone - Daughter lives nearby Code(s): R29.6 - REPEATED FALLS (9) Syncope and collapse Current Visit: Yes Status: Acute Assessment & Plan: - + LOC with fall. - CT head with no acute findings -nonacute senile brain with remote lacunar infarct right basal ganglia. - CT cervical spine- non-acut with chronic findings of cervical lordotic reversal, osteopenia, multilevel degenerative spondylosis, multilevel minimal spondylolisthesis, and arteriosclerotic disease. No new/acute findings. - CXR- nonacute with chronic findings - Trops x 3 unremarkable - possibly 2:2 UTI, anemia -BNP wnl - TRANSTHORACIC ECHOCARDIOGRAM 10/06/2023: 1. Mildly dilated left atrium. Other chamber sizes are normal. 2. Mild concentric left ventricular hypertrophy. 3. Normal left ventricular systolic function without wall motion abnormalities. Estimated EF 65%. 4. Moderate diastolic dysfunction. 5. Normal right ventricular systolic function. 6. Mild aortic sclerosis without stenosis. 7. Doppler: Trace aortic regurgitation. 8. Moderate pulmonary hypertension with an estimated PA systolic pressure 60 mmHg. 9. Mildly elevated right atrial pressure. 10. No pericardial effusion. 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 - placement Code status: Full Code(s): I10 - ESSENTIAL (PRIMARY) HYPERTENSION
--- NOTE | 2023-10-09 08:47 | OP ---
SURGERY DATE/TIME: 10/07/2023 1022 - 1030 PREOPERATIVE DIAGNOSIS: Gastrointestinal bleed. POSTOPERATIVE DIAGNOSIS: Mild hemorrhagic gastritis which is resolving. Patient does have gastroparesis with some bezoar. PROCEDURE: Esophagogastroduodenoscopy with advance of the bezoar out of the stomach. SURGEON: Esvin Carmona M.D. ANESTHESIA: General. COMPLICATIONS: None. CONDITION: Stable. FINDINGS: Discussed with daughter in the waiting room. INDICATION FOR PROCEDURE: The patient has had GI bleed. Hemoglobin has dropped. They are concerned it might be from the upper region. She was brought over for endoscopy. She has not had a bowel prep, and the lower unit will not be done at this time. DESCRIPTION OF PROCEDURE: Scope introduced. Pharyngoesophageal junction normal. Esophagus normal down to EG junction. Small hiatal hernia about 1/2 inch. Small amount of esophagitis grade 1. There is some food in the fundus body. This was advanced out of the stomach through the pylorus. Pylorus was satisfactory. There was some gastritis. A sales representative sales manager biopsy of antrum was taken for H pylori. Pylorus was normal. Duodenal bulb normal. Second portion normal. Scope brought back and looped upon itself. EG junction was satisfactory from below, just a small hiatal hernia. Scope was withdrawn. Patient tolerated the procedure satisfactorily.
[2023-10-09] MEDS: Golytely Solution 4000 ML PO ONE (14:13)
[2023-10-09] MEDS: ZOFRAN ODT 4 MG PO PRN (16:28)
[2023-10-09 20:02] LABS: Hematocrit 28.9 % (34.1-44.9); Hemoglobin 8.8 g/dL (11.2-15.7)
[2023-10-10 05:01] LABS: Absolute Neutrophil Ct (ANC) 3.19 x10^3/uL (1.56-6.13); BASOPHIL % 0.5 % (0.1-1.2); Basophil (Absolute #) 0.03 x10^3/uL (0.01-0.08); Eosinophil % 4.7 % (0.7-5.8); Eosinophil (Absolute #) 0.31 x10^3/uL (0.04-0.36); Hematocrit 25.5 % (34.1-44.9); Hemoglobin 7.9 g/dL (11.2-15.7); IMMATURE GRAN # 0.01 x10^3u/L (0.001-0.031); IMMATURE GRAN % 0.2 % (0.001-0.429); Lymphocyte (Absolute #) 2.29 x10^3/uL (1.18-3.74); Lymphocytes % 34.5 % (19.3-51.7); Mean Platelet Volume 9.5 fL (9.4-12.3); Monocyte (Absolute #) 0.81 x10^3/uL (0.24-0.86); Monocytes % 12.2 % (4.7-12.5); Neutrophil % 47.9 % (34.0-71.1); Platelet Count 283 x10^3/uL (182-369); Red Blood Count 2.93 x10^6/uL (3.93-5.22); Red Cell Distribution Width 16.9 % (11.7-14.4); White Blood Count 6.6 x10^3/uL (3.98-10.04)
--- NOTE | 2023-10-10 05:24 | PCM.NOTE ---
Date and Time: 10/10/23 0523 Subjective Assessment: is a 88 year old female with PMHX of hypertension, coronary artery disease, pulmonary embolism on Eliquis, and chronic issues with balance at her baseline admitted 10/05/23 with sepsis secondary to urinary tract infection after experiencing recurrent falls with loss of consciousness. Does have history of recurrent UTIs. She was started on Levaquin in ER for UTI as she has several allergies to meds. Ecoli on culture with sensitivity to Levofloxacin. Sepsis has resolved. Started on PPI for anemia and + occult stool. She denies any recent dark or bloody stools. Surgery consulted - EGD showing gastritis. Colonoscopy to be performed 10/10/23. Patient has complaints of pain in the backs of BL knees and R hip chronically but increased lately. She has no difficulty movements of hip and knees at all. No shortening or rotation. Xray femur/tib/fib with no acute finding. Patient remains weak and needing rehab on d/c. 10/09/23: Met with patient bedside. Endorses continued weakness and joint pain. Discussed xray of femur/tib/fib with no acute findings. Denies dark stools/ no BRBPR. Hemoglobin remains low at 7.8, occult stools positive. Plan for colonoscopy tomorrow with Dr. Carmona. Patient to prep overnight. Will discharge to SNF for rehab as patient remains very weak and disconditioned. Denies fever,cough, sob, cp, abdominal pain, BRITO, dizziness, N/V/D. 10/10/23: No overnight events noted. Endorses weakness. Colonoscopy performed today with findings of hemorrhoids, diverticulitis, colitis, and suspicious for cecal carcinoma. Surgery discussed options of possible colon resection with patient and daughter which they would like to discuss. Plan for discharge to rehab most likely tomorrow pending approval. Patient to follow up with surgery in three weeks to discuss final decision. UTI being treated with levaquin which will treat diverticulitis as well. - Review of Systems Constitutional: Fatigue, Weakness Eyes: No Symptoms Ears, Nose, & Throat: No Symptoms Respiratory: No Symptoms Cardiac: No Symptoms Abdominal/Gastrointestinal: No Symptoms Genitourinary Symptoms: No Symptoms Musculoskeletal: No Symptoms Skin: No Symptoms Neurological: No Symptoms Psychological: No Symptoms Endocrine: No Symptoms Hematologic/Lymphatic: Anemia Immunological/Allergic: No Symptoms Objective Exam General Appearance: no apparent distress Neurologic Exam: alert, oriented x 3, cooperative Skin Exam: pale Eye Exam: PERRL Ears, Nose, Throat Exam: normal ENT inspection Neck Exam: normal inspection Respiratory Exam: normal breath sounds, lungs clear Cardiovascular Exam: regular rate/rhythm, normal heart sounds Gastrointestinal/Abdomen Exam: soft, normal bowel sounds Extremity Exam: normal inspection Back Exam: normal inspection Pelvic Exam: deferred Rectal Exam: deferred Objective Data Vital Signs: Vital Signs - 24 hr Temp Pulse Resp BP Pulse Ox 10/10/23 02:33 97.6 F 92 H 16 129/60 91 L 10/09/23 19:54 97.2 F 91 H 16 135/62 95 10/09/23 16:00 97.8 F 77 16 101/58 95 10/09/23 12:00 97.6 F 84 16 118/57 95 10/09/23 07:04 98.1 F 90 16 177/81 93 L Pain Assessment - Last Documented Pain Intensity 4 Pain Scale Used 0-10 Pain Scale Intake and Output: Intake & Output 10/07/23 10/08/23 10/09/23 10/10/23 11:59 11:59 11:59 11:59 Intake Total 180 1300 1180 240 Output Total 800 Balance -620 1300 1180 240 Weight 71.7 kg Lab Results: Lab Results-Last 24 Hours 10/09/23 10/09/23 10/09/23 Range/Units 04:11 04:11 07:32 WBC 6.2 (3.98-10.04) x10^3/uL RBC 2.91 L (3.93-5.22) x10^6/uL Hgb 7.8 L (11.2-15.7) g/dL Hct 25.8 L (34.1-44.9) % MCV 88.7 (79.4-94.8) fL MCH 26.8 (25.6-32.2) pg MCHC 30.2 L (32.2-35.5) g/dL RDW 16.3 H (11.7-14.4) % Plt Count 262 (182-369) x10^3/uL MPV 9.6 (9.4-12.3) fL Gran % (34.0-71.1) % Immature Gran % (Auto) (0.001-0.429) % Nucleat RBC Rel Count (0.00-0.2) % Eos # (Auto) (0.04-0.36) x10^3/uL Immature Gran # (Auto) (0.001-0.031) x10^3u/L Absolute Lymphs (auto) (1.18-3.74) x10^3/uL Absolute Monos (auto) (0.24-0.86) x10^3/uL Absolute Nucleated RBC (0.00-0.012) x10^3u/L Lymphocytes % (19.3-51.7) % Monocytes % (4.7-12.5) % Eosinophils % (0.7-5.8) % Basophils % (0.1-1.2) % Absolute Granulocytes (1.56-6.13) x10^3/uL Basophils # (0.01-0.08) x10^3/uL Sodium 138 (135-145) mmol/L Potassium 3.8 (3.5-5.1) mmol/L Chloride 104 (98-107) mmol/L Carbon Dioxide 29 (22-30) mmol/L Anion Gap 8.7 (5-15) MEQ/L BUN 21 H (7-17) mg/dL Creatinine 0.96 (0.52-1.04) mg/dL Estimated GFR 57.6 ML/MIN Glucose 100 (74-106) mg/dL POC Glucometer 121 H (74 to 106) mg/dL Calcium 9.3 (8.4-10.2) mg/dL Total Bilirubin 0.10 L (0.2-1.3) mg/dL AST 21 (14-36) U/L ALT 14 (0-35) U/L Alkaline Phosphatase 80 (38-126) U/L Serum Total Protein 5.5 L (6.3-8.2) g/dL Albumin 3.0 L (3.5-5.0) g/dL 10/09/23 10/09/23 10/09/23 Range/Units 11:44 16:31 19:50 WBC (3.98-10.04) x10^3/uL RBC (3.93-5.22) x10^6/uL Hgb 8.8 L (11.2-15.7) g/dL Hct 28.9 L (34.1-44.9) % MCV (79.4-94.8) fL MCH (25.6-32.2) pg MCHC (32.2-35.5) g/dL RDW (11.7-14.4) % Plt Count (182-369) x10^3/uL MPV (9.4-12.3) fL Gran % (34.0-71.1) % Immature Gran % (Auto) (0.001-0.429) % Nucleat RBC Rel Count (0.00-0.2) % Eos # (Auto) (0.04-0.36) x10^3/uL Immature Gran # (Auto) (0.001-0.031) x10^3u/L Absolute Lymphs (auto) (1.18-3.74) x10^3/uL Absolute Monos (auto) (0.24-0.86) x10^3/uL Absolute Nucleated RBC (0.00-0.012) x10^3u/L Lymphocytes % (19.3-51.7) % Monocytes % (4.7-12.5) % Eosinophils % (0.7-5.8) % Basophils % (0.1-1.2) % Absolute Granulocytes (1.56-6.13) x10^3/uL Basophils # (0.01-0.08) x10^3/uL Sodium (135-145) mmol/L Potassium (3.5-5.1) mmol/L Chloride (98-107) mmol/L Carbon Dioxide (22-30) mmol/L Anion Gap (5-15) MEQ/L BUN (7-17) mg/dL Creatinine (0.52-1.04) mg/dL Estimated GFR ML/MIN Glucose (74-106) mg/dL POC Glucometer 158 H 152 H (74 to 106) mg/dL Calcium (8.4-10.2) mg/dL Total Bilirubin (0.2-1.3) mg/dL AST (14-36) U/L ALT (0-35) U/L Alkaline Phosphatase (38-126) U/L Serum Total Protein (6.3-8.2) g/dL Albumin (3.5-5.0) g/dL 10/09/23 10/10/23 Range/Units 21:22 04:17 WBC 6.6 (3.98-10.04) x10^3/uL RBC 2.93 L (3.93-5.22) x10^6/uL Hgb 7.9 L (11.2-15.7) g/dL Hct 25.5 L (34.1-44.9) % MCV 87.0 (79.4-94.8) fL MCH 27.0 (25.6-32.2) pg MCHC 31.0 L (32.2-35.5) g/dL RDW 16.9 H (11.7-14.4) % Plt Count 283 (182-369) x10^3/uL MPV 9.5 (9.4-12.3) fL Gran % 47.9 (34.0-71.1) % Immature Gran % (Auto) 0.2 (0.001-0.429) % Nucleat RBC Rel Count 0.0 (0.00-0.2) % Eos # (Auto) 0.31 (0.04-0.36) x10^3/uL Immature Gran # (Auto) 0.01 (0.001-0.031) x10^3u/L Absolute Lymphs (auto) 2.29 (1.18-3.74) x10^3/uL Absolute Monos (auto) 0.81 (0.24-0.86) x10^3/uL Absolute Nucleated RBC 0.00 (0.00-0.012) x10^3u/L Lymphocytes % 34.5 (19.3-51.7) % Monocytes % 12.2 (4.7-12.5) % Eosinophils % 4.7 (0.7-5.8) % Basophils % 0.5 (0.1-1.2) % Absolute Granulocytes 3.19 (1.56-6.13) x10^3/uL Basophils # 0.03 (0.01-0.08) x10^3/uL Sodium (135-145) mmol/L Potassium (3.5-5.1) mmol/L Chloride (98-107) mmol/L Carbon Dioxide (22-30) mmol/L Anion Gap (5-15) MEQ/L BUN (7-17) mg/dL Creatinine (0.52-1.04) mg/dL Estimated GFR ML/MIN Glucose (74-106) mg/dL POC Glucometer 117 H (74 to 106) mg/dL Calcium (8.4-10.2) mg/dL Total Bilirubin (0.2-1.3) mg/dL AST (14-36) U/L ALT (0-35) U/L Alkaline Phosphatase (38-126) U/L Serum Total Protein (6.3-8.2) g/dL Albumin (3.5-5.0) g/dL Radiology Exams: Radiology Procedures Category Date Time Status FEMUR Routine Exams 10/08/23 11:25 Completed HIPS MISHA(2V) INCL PEL IF DONE Routine Exams 10/08/23 11:25 Completed Multi-Disciplinary Progress Notes: Multi-Disciplinary Progress Notes 10/09/23 14:49 Occupational Therapy Note by Oriana West OCCUPATIONAL THERAPY TREATMENT (14:30-14:45) WILLIAM ENGAGED IN 2 SIT<>STAND T/FS TO FACILITATE FUNCTIONAL STRENGTH AND BALANCE REQUIRED FOR TOILET T/FS. SHE REQUIRED MIN ASSIST FOR T/F, AND ADAMANT ABOUT HAND PLACEMENT ON CHAIR TO ASSIST WITH T/F. PATIENT TOLERATES STANDING FOR APPROXIMATELY 30 SECONDS EACH TIME, BUT REPORTS INCREASED FATIGUE TO CONTINUE. WILLIAM THEN ENGAGED IN SEATED EXERCISES INCLUDING SCAPULAR AROM, CHEST PRESS, AND BICEP CURL (AROM) FOR 1 SET X 10 REPS. WILLIAM REPORTS INCREASED FATIGUE IN BUE AT END OF SESSION. POOR TOLERANCE TO ACTIVITY NOTED; HOWEVER, SHE STARTED BOWEL PREP THIS AFTERNOON FOR COLONOSCOPY TOMORROW. Initialized on 10/09/23 14:49 - END OF NOTE 10/09/23 13:03 Case Management Note by Justine Mahajan PATIENT AND FAMILY HAS DECIDED TO DO A SHORT TERM REHAB STAY PRIOR TO DC. THEY WOULD LIKE PATIENT TO GO TO [facility]. PASRR PAPERWORK DONE- NO LEVEL II REQUIRED. COPIES PLACED IN CHART AND SENT WITH REFERRAL REFERRAL WAS FAXED- THEY HAVE ACCEPTED PATIENT FOR ADMISSION Initialized on 10/09/23 13:03 - END OF NOTE 10/09/23 10:46 Physical Therapy Note by Derrick(Gail#[id number]),Mirian PT. WAS SEEN BY P.T. THIS A.M. IN BED UPON P.T. ARRIVAL TO ROOM. C/O NECK PN AND L LE PN W/ WB. REPORTS NECK PN IS CHRONIC. PT. ALERT AND ORIENTED AND AGREEABLE TO P.T. TO HAVE COLONSCOPY TOMORROW AND START BOWEL PREP THIS P.M. O2 SATS 93% ON RA. PERFORMED SUPINE TO SIT W/ SBA W/ HOB ELEVATED. SIT TO STAND PERFORMED W/ MIN ASSIST. PT. AMBULATED ~ 25' W/ RW AND CGA-MIN ASSIST; NOTED FLEXED TRUNK POSTURE AND HIP ER BILATERALLY W/ DECREASED STRIDE LENGTH AND FOOT CLEARANCE. C/O MILD DIZZINESS. O2 SATS 89-90% AFTER WALK ON RA. INCREASED AFTER ~ 1' REST W/ CUES FOR DEEP BREATHING. WILL CONT. P.T. 5X/WK UNTIL D/C TO PREP FOR REHAB STAY. Initialized on 10/09/23 10:46 - END OF NOTE Assessment/Plan (1) Sepsis secondary to UTI Current Visit: Yes Status: Acute Assessment & Plan: UC with ecoli - levofloxacin sensitivity - continue -BC NGTD on pre-kuhn - Lactic acid elevated in ER at 4.2- 1L fluid bolus gave IV/ Repeat LA 3.4- 500ml fluid bolus ordered d/t heart hx/ now wnl -Resolved - WBC WNL, LA WNL, stable vitals Code(s): A41.9 - SEPSIS, UNSPECIFIED ORGANISM; N39.0 - URINARY TRACT INFECTION, SITE NOT SPECIFIED (2) Acute UTI Current Visit: No Status: Acute Assessment & Plan: -Ucult with Ecoli and sensitivity to Levaquin - vernell continue on PO- Levaquin IV Code(s): N39.0 - URINARY TRACT INFECTION, SITE NOT SPECIFIED (3) Anemia Current Visit: Yes Status: Acute Qualifiers: Anemia type: iron deficiency Iron deficiency anemia type: chronic blood loss Qualified Code(s): D50.0 - Iron deficiency anemia secondary to blood loss (chronic) Assessment & Plan: - iron panel with 10% saturation, Hgb downtrending 7.8>7.3<7.5<7.5<9.0 - + occult stool in ER - Surgical consult - EGD with gastritis - Plan for colonoscopy 10/10/23 - Started ferrous sulfate daily- recommend IV iron infusion as OP 10/10/23: -stable, see GI bleed for plan Code(s): D64.9 - ANEMIA, UNSPECIFIED (4) GI bleed Current Visit: Yes Status: Acute Assessment & Plan: - iron panel with 10% saturation, Hgb downtrending 7.3<7.5<7.5<9.0 - + occult stool in ER - Surgical consult - EGD with gastritis - Plan for colonoscopy 10/10/23 - Started ferrous sulfate daily- recommend IV iron infusion as OP 10/10/23: -Colonoscopy performed showing diverticulitis, colitis, and suspicious for cecal carcinoma- plan for follow up in three week with surgery for final surgical decision -Levaquin continued for coverage of UTI/ -trend hgb Code(s): K92.2 - GASTROINTESTINAL HEMORRHAGE, UNSPECIFIED (5) Hip pain, bilateral Current Visit: Yes Status: Acute Assessment & Plan: - XR- reviewed with no acute findings, continue pain regimen - chronic Code(s): M25.551 - PAIN IN RIGHT HIP; M25.552 - PAIN IN LEFT HIP (6) Knee pain, bilateral Current Visit: Yes Status: Acute Assessment & Plan: - daughter refused pt to have knee XR's at this time - Tylenol PRN - Tramadol PRN Code(s): M25.561 - PAIN IN RIGHT KNEE; M25.562 - PAIN IN LEFT KNEE (7) Left thigh pain Current Visit: Yes Status: Acute Assessment & Plan: - XR-with no acute findings - chronic - continue pain management Code(s): M79.652 - PAIN IN LEFT THIGH (8) Recurrent falls Current Visit: Yes Status: Acute Assessment & Plan: - PT/ OT eval - Accepted to water on discharge - Lives alone - Daughter lives nearby 10/09: -Precert pending for rehab Code(s): R29.6 - REPEATED FALLS (9) Syncope and collapse Current Visit: Yes Status: Acute Assessment & Plan: - + LOC with fall. - CT head with no acute findings -nonacute senile brain with remote lacunar infarct right basal ganglia. - CT cervical spine- non-acut with chronic findings of cervical lordotic reversal, osteopenia, multilevel degenerative spondylosis, multilevel minimal spondylolisthesis, and arteriosclerotic disease. No new/acute findings. - CXR- nonacute with chronic findings - Trops x 3 unremarkable - possibly 2:2 UTI, anemia -BNP wnl - TRANSTHORACIC ECHOCARDIOGRAM 10/06/2023: 1. Mildly dilated left atrium. Other chamber sizes are normal. 2. Mild concentric left ventricular hypertrophy. 3. Normal left ventricular systolic function without wall motion abnormalities. Estimated EF 65%. 4. Moderate diastolic dysfunction. 5. Normal right ventricular systolic function. 6. Mild aortic sclerosis without stenosis. 7. Doppler: Trace aortic regurgitation. 8. Moderate pulmonary hypertension with an estimated PA systolic pressure 60 mmHg. 9. Mildly elevated right atrial pressure. 10. No pericardial effusion. - BNP WNL - rehab on discharge Code(s): R55 - SYNCOPE AND COLLAPSE (10) DM2 (diabetes mellitus, type 2) Current Visit: No Status: Chronic Qualifiers: Diabetes mellitus spreader box operator insulin use: without spreader box operator use Diabetes mellitus complication status: without complication Qualified Code(s): E11.9 - Type 2 diabetes mellitus without complications Assessment & Plan: - A1C 6.82- controlled -Continue glipizide (11) HTN (hypertension) Current Visit: No Status: Chronic Assessment & Plan: - Continue home meds - BP well controlled - monitor VTE: Eliqus leela d/t GI bleed, SCD's PPI: Protonix Next of KIN: Sol Herrera- daughter D/c plan: Monday? - placement Code status: Full Code(s): A41.9 - SEPSIS, UNSPECIFIED ORGANISM; N39.0 - URINARY TRACT INFECTION, SITE NOT SPECIFIED (2) Acute UTI Current Visit: No Status: Acute Code(s): N39.0 - URINARY TRACT INFECTION, SITE NOT SPECIFIED (3) Anemia Current Visit: Yes Status: Acute Qualifiers: Anemia type: iron deficiency Iron deficiency anemia type: chronic blood loss Qualified Code(s): D50.0 - Iron deficiency anemia secondary to blood loss (chronic) Code(s): D64.9 - ANEMIA, UNSPECIFIED (4) GI bleed Current Visit: Yes Status: Acute Code(s): K92.2 - GASTROINTESTINAL HEMORRHAGE, UNSPECIFIED (5) Hip pain, bilateral Current Visit: Yes Status: Acute Code(s): M25.551 - PAIN IN RIGHT HIP; M25.552 - PAIN IN LEFT HIP (6) Knee pain, bilateral Current Visit: Yes Status: Acute Code(s): M25.561 - PAIN IN RIGHT KNEE; M 25.562 - PAIN IN LEFT KNEE (7) Left thigh pain Current Visit: Yes Status: Acute Code(s): M79.652 - PAIN IN LEFT THIGH (8) Recurrent falls Current Visit: Yes Status: Acute Code(s): R29.6 - REPEATED FALLS (9) Syncope and collapse Current Visit: Yes Status: Acute Code(s): R55 - SYNCOPE AND COLLAPSE (10) DM2 (diabetes mellitus, type 2) Current Visit: No Status: Chronic Qualifiers: Diabetes mellitus spreader box operator insulin use: without spreader box operator use Diabetes mellitus complication status: without complication Qualified Code(s): E11.9 - Type 2 diabetes mellitus without complications (11) HTN (hypertension) Current Visit: No Status: Chronic Code(s): I10 - ESSENTIAL (PRIMARY) HYPERTENSION
[2023-10-10 05:31] LABS: ALBUMIN 2.9 g/dL (3.5-5.0); ANION GAP 7.9 MEQ/L (5-15); BILIRUBIN,TOTAL 0.3 mg/dL (0.2-1.3); Calcium 8.8 mg/dL (8.4-10.2); Creatinine 1 0.85 mg/dL (0.52-1.04); EST GLOMERULAR FILTRATION RATE 66.7 ML/MIN; Potassium 3.5 mmol/L (3.5-5.1); Total Protein 5.3 g/dL (6.3-8.2)
[2023-10-10] MEDS ORDERED: DIPRIVAN 200 MG/20 ML IV ONE (10:04)
[2023-10-10 23:57] VITALS: RESP 16
[2023-10-11 04:53] LABS: Absolute Neutrophil Ct (ANC) 3.51 x10^3/uL (1.56-6.13); BASOPHIL % 0.4 % (0.1-1.2); Basophil (Absolute #) 0.03 x10^3/uL (0.01-0.08); Eosinophil % 4.9 % (0.7-5.8); Eosinophil (Absolute #) 0.35 x10^3/uL (0.04-0.36); Hematocrit 24.2 % (34.1-44.9); Hemoglobin 7.4 g/dL (11.2-15.7); IMMATURE GRAN # 0.01 x10^3u/L (0.001-0.031); IMMATURE GRAN % 0.1 % (0.001-0.429); Lymphocyte (Absolute #) 2.25 x10^3/uL (1.18-3.74); Lymphocytes % 31.8 % (19.3-51.7); Mean Cell Volume 89.6 fL (79.4-94.8); Mean Corpuscular Hemoglobin 27.4 pg (25.6-32.2); Mean Corpuscular Hgb Concent. 30.6 g/dL (32.2-35.5); Mean Platelet Volume 9.1 fL (9.4-12.3); Monocyte (Absolute #) 0.93 x10^3/uL (0.24-0.86); Monocytes % 13.1 % (4.7-12.5); Neutrophil % 49.7 % (34.0-71.1); Platelet Count 254 x10^3/uL (182-369); White Blood Count 7.1 x10^3/uL (3.98-10.04)
[2023-10-11 05:06] LABS: ALBUMIN 2.7 g/dL (3.5-5.0); ANION GAP 7.9 MEQ/L (5-15); BILIRUBIN,TOTAL 0.2 mg/dL (0.2-1.3); Calcium 8.7 mg/dL (8.4-10.2); Creatinine 1 0.91 mg/dL (0.52-1.04); EST GLOMERULAR FILTRATION RATE 61.4 ML/MIN; Potassium 3.7 mmol/L (3.5-5.1); Total Protein 5.1 g/dL (6.3-8.2)
--- NOTE | 2023-10-11 05:32 | PCM.DS ---
Discharge Summary Date of Admission: 10/06/23 11:05 Date of Discharge: 10/11/23 Admitting Physician: JUAN BRADY MD Consults: Consults on Case 10/05/23 17:43 Consult Surgery ROUTINE Primary Care Provider: LV LANIER DO Allergies Allergies penicillin G Allergy (Verified 10/05/23 17:13) hydrocodone bitartrate [From [place]] Adverse Reaction (Verified 10/05/23 17:13) lisinopril Adverse Reaction (Verified 10/05/23 17:13) procainamide HCl [From [place]] Adverse Reaction (Verified 10/05/23 17:13) PRESANTINE Allergy (Uncoded 10/05/23 17:13) Hospital Summary - Hospital Course Hospital Course: Ruddy is a 88 year old female with PMHX of hypertension, coronary artery disease, pulmonary embolism on Eliquis, and chronic issues with balance at her baseline admitted 10/05/23 with sepsis secondary to urinary tract infection after experiencing recurrent falls with loss of consciousness. Does have history of recurrent UTIs. She was started on Levaquin in ER for UTI as she has several allergies to meds. Ecoli on culture with sensitivity to Levofloxacin. Sepsis has resolved. Started on PPI for anemia and + occult stool. She denies any recent dark or bloody stools. Surgery consulted - EGD showing gastritis. Colonoscopy performed 10/10/23with findings of hemorrhoids, diverticulitis, colitis, and suspicious for cecal carcinoma. Surgery discussed options of possible colon r esection with patient and daughter which they would like to discuss - they will follow up OP in three weeks for final decision. Patient has complaints of pain in the backs of BL knees and R hip chronically but increased lately. She has no difficulty movements of hip and knees at all. No shortening or rotation. Xray femur/tib/fib with no acute finding. Patient remains weak and needing rehab on d/c. Patient stable for discharge to [place] today for rehab with planned follow up with surgery. Will continue remainder of oral levaquin course initiated 10/08/23. Discharge Note New Medications:Levaquin -Hold eliquis/ASA x 1 week -Needs CBC checked tomorrow Follow Up: PCP/Surgery Latest Assessment & Plan (1) Sepsis secondary to UTI Current Visit: Yes Status: Acute Assessment & Plan: UC with ecoli - levofloxacin sensitivity - continue -BC NGTD on pre-kuhn - Lactic acid elevated in ER at 4.2- 1L fluid bolus gave IV/ Repeat LA 3.4- 500ml fluid bolus ordered d/t heart hx/ now wnl -Resolved - WBC WNL, LA WNL, stable vitals Code(s): A41.9 - SEPSIS, UNSPECIFIED ORGANISM; N39.0 - URINARY TRACT INFECTION, SITE NOT SPECIFIED (2) Acute UTI Current Visit: No Status: Acute Assessment & Plan: -Ucult with Ecoli and sensitivity to Levaquin - vernell continue on PO- Levaquin IV Code(s): N39.0 - URINARY TRACT INFECTION, SITE NOT SPECIFIED (3) Anemia Current Visit: Yes Status: Acute Qualifiers: Anemia type: iron deficiency Iron deficiency anemia type: chronic blood loss Qualified Code(s): D50.0 - Iron deficiency anemia secondary to blood loss (chronic) Assessment & Plan: - iron panel with 10% saturation, Hgb downtrending 7.8>7.3<7.5<7.5<9.0 - + occult stool in ER - Surgical consult - EGD with gastritis - Plan for colonoscopy 10/10/23 - Started ferrous sulfate daily- recommend IV iron infusion as OP 10/10/23: -stable, see GI bleed for plan Code(s): D64.9 - ANEMIA, UNSPECIFIED (4) GI bleed Current Visit: Yes Status: Acute Assessment & Plan: - iron panel with 10% saturation, Hgb downtrending 7.3<7.5<7.5<9.0 - + occult stool in ER - Surgical consult - EGD with gastritis - Plan for colonoscopy 10/10/23 - Started ferrous sulfate daily- recommend IV iron infusion as OP 10/10/23: -Colonoscopy performed showing diverticulitis, colitis, and suspicious for cecal carcinoma- plan for follow up in three week with surgery for final surgical decision -Levaquin continued for coverage of UTI/ -trend hgb Code(s): K92.2 - GASTROINTESTINAL HEMORRHAGE, UNSPECIFIED (5) Hip pain, bilateral Current Visit: Yes Status: Acute Assessment & Plan: - XR- reviewed with no acute findings, continue pain regimen - chronic Code(s): M25.551 - PAIN IN RIGHT HIP; M25.552 - PAIN IN LEFT HIP (6) Knee pain, bilateral Current Visit: Yes Status: Acute Assessment & Plan: - daughter refused pt to have knee XR's at this time - Tylenol PRN - Tramadol PRN Code(s): M25.561 - PAIN IN RIGHT KNEE; M25.562 - PAIN IN LEFT KNEE (7) Left thigh pain Current Visit: Yes Status: Acute Assessment & Plan: - XR-with no acute findings - chronic - continue pain management Code(s): M79.652 - PAIN IN LEFT THIGH (8) Recurrent falls Current Visit: Yes Status: Acute Assessment & Plan: - PT/ OT eval - Accepted to water on discharge - Lives alone - Daughter lives nearby 10/09: -Precert pending for rehab Code(s): R29.6 - REPEATED FALLS (9) Syncope and collapse Current Visit: Yes Status: Acute Assessment & Plan: - + LOC with fall. - CT head with no acute findings -nonacute senile brain with remote lacunar infarct right basal ganglia. - CT cervical spine- non-acut with chronic findings of cervical lordotic reversal, osteopenia, multilevel degenerative spondylosis, multilevel minimal spondylolisthesis, and arteriosclerotic disease. No new/acute findings. - CXR- nonacute with chronic findings - Trops x 3 unremarkable - possibly 2:2 UTI, anemia -BNP wnl - TRANSTHORACIC ECHOCARDIOGRAM 10/06/2023: 1. Mildly dilated left atrium. Other chamber sizes are normal. 2. Mild concentric left ventricular hypertrophy. 3. Normal left ventricular systolic function without wall motion abnormalities. Estimated EF 65%. 4. Moderate diastolic dysfunction. 5. Normal right ventricular systolic function. 6. Mild aortic sclerosis without stenosis. 7. Doppler: Trace aortic regurgitation. 8. Moderate pulmonary hypertension with an estimated PA systolic pressure 60 mmHg. 9. Mildly elevated right atrial pressure. 10. No pericardial effusion. - BNP WNL - rehab on discharge Code(s): R55 - SYNCOPE AND COLLAPSE (10) DM2 (diabetes mellitus, type 2) Current Visit: No Status: Chronic Qualifiers: Diabetes mellitus terminal gauger insulin use: without custodial use Diabetes mellitus complication status: without complication Qualified Code(s): E11.9 - Type 2 diabetes mellitus without complications Assessment & Plan: - A1C 6.82- controlled -Continue glipizide (11) HTN (hypertension) Current Visit: No Status: Chronic Assessment & Plan: - Continue home meds - BP well controlled - monitor VTE: Eliqus held d/t GI bleed, SCD's PPI: Protonix Next of KIN: Sol Herrera- daughter D/c plan: Monday? - placement Code status: Full I spent 35 minutes [id number] with the patient on the day of discharge performing discharge exam, discussing hospital stay and discharge instructions with patient and caregivers, preparation of discharge records, prescriptions & r eferral forms and addressing any questions/concerns the patient had as documented above. - Vitals & Intake/Output Vital Signs: Vital Signs Temperature 98.8 F 10/10/23 23:57 Pulse Rate 79 10/10/23 23:57 Respiratory Rate 16 10/11/23 04:00 Blood Pressure 119/58 10/10/23 23:57 O2 Sat by Pulse Oximetry 91 L 10/11/23 04:00 Intake & Output: Intake & Output 10/08/23 10/09/23 10/10/23 10/11/23 11:59 11:59 11:59 11:59 Intake Total 1300 0881 221 1200 Balance 1300 3822 848 8257 Weight 71.7 kg 71.7 kg - Lab Result Diagrams: 10/11/23 04:36 10/11/23 04:36 Lab Results-Last 24 Hrs: Lab Results-Last 24 Hours 10/10/23 10/10/23 10/10/23 Range/Units 04:17 06:51 11:23 WBC (3.98-10.04) x10^3/uL RBC (3.93-5.22) x10^6/uL Hgb (11.2-15.7) g/dL Hct (34.1-44.9) % MCV (79.4-94.8) fL MCH (25.6-32.2) pg MCHC (32.2-35.5) g/dL RDW (11.7-14.4) % Plt Count (182-369) x10^3/uL MPV (9.4-12.3) fL Gran % (34.0-71.1) % Immature Gran % (Auto) (0.001-0.429) % Nucleat RBC Rel Count (0.00-0.2) % Eos # (Auto) (0.04-0.36) x10^3/uL Immature Gran # (Auto) (0.001-0.031) x10^3u/L Absolute Lymphs (auto) (1.18-3.74) x10^3/uL Absolute Monos (auto) (0.24-0.86) x10^3/uL Absolute Nucleated RBC (0.00-0.012) x10^3u/L Lymphocytes % (19.3-51.7) % Monocytes % (4.7-12.5) % Eosinophils % (0.7-5.8) % Basophils % (0.1-1.2) % Absolute Granulocytes (1.56-6.13) x10^3/uL Basophils # (0.01-0.08) x10^3/uL Sodium 138 (135-145) mmol/L Potassium 3.5 (3.5-5.1) mmol/L Chloride 103 (98-107) mmol/L Carbon Dioxide 31 H (22-30) mmol/L Anion Gap 7.9 (5-15) MEQ/L BUN 18 H (7-17) mg/dL Creatinine 0.85 (0.52-1.04) mg/dL Estimated GFR 66.7 ML/MIN Glucose 93 (74-106) mg/dL POC Glucometer 102 123 H (74 to 106) mg/dL Calcium 8.8 (8.4-10.2) mg/dL Total Bilirubin 0.30 (0.2-1.3) mg/dL AST 29 (14-36) U/L ALT 17 (0-35) U/L Alkaline Phosphatase 77 (38-126) U/L Serum Total Protein 5.3 L (6.3-8.2) g/dL Albumin 2.9 L (3.5-5.0) g/dL 10/10/23 10/10/23 10/11/23 Range/Units 16:37 20:43 04:36 WBC 7.1 (3.98-10.04) x10^3/uL RBC 2.70 L (3.93-5.22) x10^6/uL Hgb 7.4 L (11.2-15.7) g/dL Hct 24.2 L (34.1-44.9) % MCV 89.6 (79.4-94.8) fL MCH 27.4 (25.6-32.2) pg MCHC 30.6 L (32.2-35.5) g/dL RDW 18.0 H (11.7-14.4) % Plt Count 254 (182-369) x10^3/uL MPV 9.1 L (9.4-12.3) fL Gran % 49.7 (34.0-71.1) % Immature Gran % (Auto) 0.1 (0.001-0.429) % Nucleat RBC Rel Count 0.0 (0.00-0.2) % Eos # (Auto) 0.35 (0.04-0.36) x10^3/uL Immature Gran # (Auto) 0.01 (0.001-0.031) x10^3u/L Absolute Lymphs (auto) 2.25 (1.18-3.74) x10^3/uL Absolute Monos (auto) 0.93 H (0.24-0.86) x10^3/uL Absolute Nucleated RBC 0.00 (0.00-0.012) x10^3u/L Lymphocytes % 31.8 (19.3-51.7) % Monocytes % 13.1 H (4.7-12.5) % Eosinophils % 4.9 (0.7-5.8) % Basophils % 0.4 (0.1-1.2) % Absolute Granulocytes 3.51 (1.56-6.13) x10^3/uL Basophils # 0.03 (0.01-0.08) x10^3/uL Sodium (135-145) mmol/L Potassium (3.5-5.1) mmol/L Chloride (98-107) mmol/L Carbon Dioxide (22-30) mmol/L Anion Gap (5-15) MEQ/L BUN (7-17) mg/dL Creatinine (0.52-1.04) mg/dL Estimated GFR ML/MIN Glucose (74-106) mg/dL POC Glucometer 137 H 139 H (74 to 106) mg/dL Calcium (8.4-10.2) mg/dL Total Bilirubin (0.2-1.3) mg/dL AST (14-36) U/L ALT (0-35) U/L Alkaline Phosphatase (38-126) U/L Serum Total Protein (6.3-8.2) g/dL Albumin (3.5-5.0) g/dL Micro Results-Entire Visit: Microbiology 10/05/23 13:05 Blood Culture - Final Blood 10/05/23 12:39 Blood Culture - Final Blood 10/05/23 14:53 Urine Culture - Final Clean Catch Midstream Escherichia Coli Accuchecks Date 10/10/23 Date 10/10/23 Date 10/10/23 Date 10/10/23 Time 21:00 Time 16:39 Time 11:38 Time 07:11 - Procedures and Test Procedures and Tests throughout Hospitalization: Therapy Orders & Screens 10/05/23 17:10 Respiratory Therapy Consult ONCE Comment: Reason For Exam: 10/05/23 17:56 PT Eval & Treat (MD Order) ONCE Reason for Eval:: recurrent falls at home Diagnosis: fall, uti OT Eval and Treat (MD Order) ONCE Comment: Physician Instructions: Reason For Exam: Diagnosis: fall, uti Discharge Exam General Appearance: no apparent distress Neurologic Exam: alert, oriented x 3, cooperative Eye Exam: PERRL Ears, Nose, Throat Exam: normal ENT inspection Neck Exam: normal inspection Respiratory Exam: normal breath sounds, lungs clear Cardiovascular Exam: regular rate/rhythm, normal heart sounds Gastrointestinal/Abdomen Exam: soft, normal bowel sounds Pelvic Exam: deferred Rectal Exam: deferred Back Exam: normal inspection Extremity Exam: normal inspection Skin Exam: pale Final Diagnosis/Problem List - Final Discharge Diagnosis/Problem (1) Sepsis secondary to UTI Current Visit: Yes Status: Acute Code(s): A41.9 - SEPSIS, UNSPECIFIED ORGANISM; N39.0 - URINARY TRACT INFECTION, SITE NOT SPECIFIED (2) Acute UTI Current Visit: No Status: Acute Code(s): N39.0 - URINARY TRACT INFECTION, SITE NOT SPECIFIED (3) Anemia Current Visit: Yes Status: Acute Code(s): D64.9 - ANEMIA, UNSPECIFIED (4) GI bleed Current Visit: Yes Status: Acute Code(s): K92.2 - GASTROINTESTINAL HEMORRH AGE, UNSPECIFIED (5) Hip pain, bilateral Current Visit: Yes Status: Acute Code(s): M25.551 - PAIN IN RIGHT HIP; M25.552 - PAIN IN LEFT HIP (6) Knee pain, bilateral Current Visit: Yes Status: Acute Code(s): M25.561 - PAIN IN RIGHT KNEE; M25.562 - PAIN IN LEFT KNEE (7) Left thigh pain Current Visit: Yes Status: Acute Code(s): M79.652 - PAIN IN LEFT THIGH (8) Recurrent falls Current Visit: Yes Status: Acute Code(s): R29.6 - REPEATED FALLS (9) Syncope and collapse Current Visit: Yes Status: Acute Code(s): R55 - SYNCOPE AND COLLAPSE (10) DM2 (diabetes mellitus, type 2) Current Visit: No Status: Chronic (11) HTN (hypertension) Current Visit: No Status: Chronic Code(s): I10 - ESSENTIAL (PRIMARY) HYPERTENSION - Discharge Disposition: DC TO ANY "OTHER" [facility] Condition: Stable Prescriptions: New Ferrous Sulfate 325 mg [Feosol 325 mg] 325 mg PO DAILY tablet Levofloxacin [Levofloxacin 250MG Tablet] 250 mg PO DAILY 5 Days #5 tablet Continue Glipizide 2.5 mg [Glucotrol Xl 2.5 MG] 2.5 mg PO DAILY Isosorbide Mononitrate 30 mg [Imdur 30 MG] 60 mg PO DAILY Metoprolol Tartrate 25 mg PO DAILY PRN PRN PRN Reason: Elevated Blood Pressure Levothyroxine Sodium 112 Mcg [Synthroid 112 Mcg] 88 mcg PO DAILY Omeprazole 20 MG [Prilosec 20 mg] 20 mg PO DAILY Atorvastatin Calcium [Lipitor 40Mg] 81 mg PO DAILY Docusate Sodium [Colace] 1 tab PO DAILY L.acidoph,Paracasei, B.lactis [Probiotic] 1 cap PO HS Cyanocobalamin (Vitamin B-12) [Vitamin B-12] 1,000 mcg PO HS Beta-Carotene(A) W-C & E/Min [Ocuvite Tablet] 1 tab PO HS Fluoxetine HCl [Prozac] 20 mg PO DAILY Discontinued Aspirin 81 mg PO HS Apixaban [Eliquis] 2.5 mg PO BID Additional Instructions: [facility] ORDERS: ADMIT TO [facility] REGULAR DIET PT/OT EVAL AND TREAT -Hold Eliquis and ASA for 1 week - -Patient will need CBC tomorrow and follow up PATIENT TO FOLLOW UP WITH DR. KAUR IN 3-4 WEEKS- WILL NEED APT MADE. IF PATIENT CHOOSES TO FOLLOW UP WITH [facility] FOR SURGERY- SHE WILL NEED CARDIAC CLEARANCE FROM DR. FONTAINE BEFORE SURGERY SEE ATTACHED MED LIST Follow up with: LV LANIER DO [Primary Care Provider] - MAGY KAUR [ACTIVE STAFF] - Call for Appointment (3-4 WEEKS)
[2023-10-11 07:38] VITALS: BP 166/73; PULSE 86; TEMP 97.8; O2SAT 92
--- NOTE | 2023-10-12 10:50 | OP ---
SURGERY DATE/TIME: 10/10/2023 [id number] PREOPERATIVE DIAGNOSIS: Gastrointestinal bleed. POSTOPERATIVE DIAGNOSIS: Cecal cancer. PROCEDURE: Colonoscopic examination completed to the cecum with visualization of a cecal cancer. SURGEON: Esvin Carmona MD ANESTHESIA: General. COMPLICATIONS: None. CONDITION: Stable. DESCRIPTION OF PROCEDURE AND FINDINGS: Patient was taken to endoscopy suite. Anal digital examination was satisfactory. Tone was satisfactory; anus, rectum, sigmoid. Scope advanced. Fairly meandering colon, fairly large diameter. Despite this, scope was able to be advanced into the cecum. At the base of the cecum, a half-dollar size, about 2 half-dollars thick cecal flat, sessile polyp, almost certainly cancer was present. This was in the base of the cecum. She clearly needs a regular colectomy of some sort. She is elderly. She has not had preop cardiac workup, and I do not think her daughter is going to be able to make a decision readily. We will go ahead and see her back in the office and see how she wants to deal with this.
== END 2023-10-11 09:15 | DRG 872 ==
LOC: ED 11:22 → MED SURG 17:04 → OBSVTOIN 10-06 11:05
PROVIDERS: ADMIT Internal Medicine; ATTEND Internal Medicine
DX: A41.9 Sepsis, unspecified organism (principal); N39.0 Urinary tract infection, site not specified; K92.2 Gastrointestinal hemorrhage, unspecified; C18.0 Malignant neoplasm of cecum; B96.20 Unspecified Escherichia coli [E. coli] as the cause of diseases classified elsewhere; D64.9 Anemia, unspecified; M25.551 Pain in right hip; M25.552 Pain in left hip; M79.652 Pain in left thigh; M25.561 Pain in right knee; M25.562 Pain in left knee; R29.6 Repeated falls; R55 Syncope and collapse; E11.9 Type 2 diabetes mellitus without complications; I10 Essential (primary) hypertension; I25.10 Atherosclerotic heart disease of native coronary artery without angina pectoris; T18.2XXA Foreign body in stomach, initial encounter; Z79.899 Other long term (current) drug therapy; Z79.01 Long term (current) use of anticoagulants; Z86.711 Personal history of pulmonary embolism
CPT/HCPCS: 00731; 36000; 36415; 43247; 45378; 70450; 71045; 72125; 73521; 73552; 80053; 81001; 82607; 82728; 82746; 82947; 83036; 83540; 83550; 83605; 83690; 83735; 83880; 84484; 85014; 85018; 85025; 85027; 87040; 87077; 87086; 87186; 93005; 93268; 93306; 96365; 96374; 97110; 97161; 97165; 97530; 99100; 99285; G0328; G0378; Q3014; 82274; J1956; J2405; J2704; Q0162; A9270-GY